=== PATIENT | male | born 1950 | race Caucasian/White ===

== ENCOUNTER 2020-11-09 08:44 | Inpatient (IN) | payer MEDICARE, MEDICAID, SELFPAY ==
[2020-11-09] VITALS (9 sets, daily range): BP systolic 105–133; BP diastolic 53–67; PULSE 70–99; RESP 14–19; TEMP 36.5–37.3; O2SAT 93–98; BMI 17.4
--- NOTE | ~2020-11-09 | XR_ITS ---
EXAMINATION: XR CHEST CLINICAL INFORMATION: Shortness of breath COMPARISON: None TECHNIQUE: Frontal view of the chest was obtained. FINDINGS: Abnormal appearance of the chest. There appears to be volume loss within the right hemithorax with mediastinal shift to the right. There is an approximately 4 x 2 cm density projecting over the right midlung which is nonspecific. Cannot exclude small amount of right-sided pleural fluid. There is good aeration of the left hemithorax. Subtle linear opacity of the lateral left lung base suggests atelectasis. XR/XR chest 1V IMPRESSION: Abnormal appearance of the chest. Unfortunately there is no prior imaging available for comparison. I suspect there may be postsurgical changes of the right hemithorax, however, an approximately 4 x 2 cm density projecting over the right midlung is nonspecific and may represent a focal mass. Chest CT would be required for further characterization of these findings.
--- NOTE | ~2020-11-09 | CT_ITS ---
EXAMINATION: CT ABDOMEN AND PELVIS WITH CONTRAST CLINICAL INFORMATION: Anemia, lung , rule gi mass COMPARISON: Chest CT earlier today TECHNIQUE: Multidetector volumetric imaging was performed from the superior aspect of the liver through the pubic symphysis following administration of 85 cc of Omnipaque intravenous contrast Sagittal and coronal reformatted images were obtained on the technologist workstation.. This CT examination was performed using dose optimization techniques as appropriate, variously including the following: *Automated exposure control *Adjustment of mA and/or kV according to patient size (this includes techniques or standardized protocols for targeted exams where dose is matched to indication/reason for exam; i.e. extremities or head) *Use of iterative reconstruction technique DLP: 301 mGy-cm FINDINGS: LUNG BASES: The hyperattenuating low-attenuation mass affect with central air seen in the right lung base was more completely seen on the CT scan of the chest. Chronic tumor versus abscess could have overlapping appearance and should be clinically correlated. Dilated debris-filled lower lobe bronchi in the right partially visualized as well. Patchy airspace disease at the left base again noted as well again better seen more completely on the dedicated chest CT from earlier today. LIVER, GALLBLADDER, AND BILIARY TREE: The liver is normal in size, shape, and attenuation. No focal hepatic lesion or biliary ductal dilatation is present. The gallbladder is contracted but unremarkable with no evidence of radiopaque gallstones, gallbladder wall thickening, or obvious pericholecystic inflammatory changes. PANCREAS: Unremarkable. SPLEEN: Unremarkable. ADRENAL GLANDS: Unremarkable. KIDNEYS AND URETERS: The kidneys are normal in size, shape, and attenuation. No hydronephrosis, hydroureter, or calculi seen. No perinephric stranding. BLADDER: Dense contrast in the bladder from the CT scan earlier today GASTROINTESTINAL TRACT: Stool and air seen throughout the colon to the rectum. No obstructive changes seen. Visualized small bowel is unremarkable. Lack of intra-abdominal fat limits evaluation for subtle inflammatory change but no obstructive changes noted in the bowel ABDOMINAL WALL: No significant hernia is appreciated. LYMPHOVASCULAR STRUCTURES: Extensive vascular calcification. Patient is status post aorta bifemoral bypass graft PELVIC VISCERA: Prostatic calcifications OSSEOUS STRUCTURES: Degenerative changes but no acute bony abnormality CT/CT abdomen pelvis w con IMPRESSION: The low-attenuation mass at the right lung base is incompletely visualized possibly representing central necrosis or abscess. This should be clinically correlated. There is patchy airspace disease seen otherwise again better delineated on the dedicated chest CT earlier today. I do not appreciate any acute or suspicious abnormality within the abdomen or pelvis otherwise. Chronic appearing and postoperative changes are noted.
--- NOTE | ~2020-11-09 | CT_ITS ---
EXAMINATION: CT CHEST WITH CONTRAST CLINICAL INFORMATION: Mass. COMPARISON: Chest x-ray 11/09/2020 TECHNIQUE: Multidetector volumetric CT imaging of the chest was obtained after the administration of 50 mL of Omnipaque 350 intravenous contrast without immediate adverse reactions. Axial MIP volume rendering provided. Sagittal and coronal reformatted images were obtained. This CT examination was performed using dose optimization techniques as appropriate, variously including the following: *Automated exposure control *Adjustment of mA and/or kV according to patient size (this includes techniques or standardized protocols for targeted exams where dose is matched to indication/reason for exam; i.e. extremities or head) *Use of iterative reconstruction technique DLP: 181 mGy-cm FINDINGS: CAMERA ENGINEER: There is loss of right lung volume with ipsilateral mediastinal shift. The left lung is hyperexpanded. LUNGS: There is diffuse emphysematous changes of both lungs with loss of right lung volume and ipsilateral mediastinal shift. There is a dense mass right lower lobe measuring 3.0 x 3.5 cm on axial image 255/5. There are several ill-defined patchy opacities seen in the right upper lobe in the range of 1 cm to 1.7 cm on axial image 21/4, branching interstitial thickening subpleural based right lower lobe and right middle lobe axial image 24/4 bronchial wall thickening at the hilum axial image 31/4 and a small ill-defined opacities in right middle lobe and right lower lobe on axial image 39/4 and 42/4. Few ill-defined opacities also seen in left upper lobe axial image 27/4, prominent alveolar surrounded by interstitial thickening axial image 30/4, reticular nodular changes in the lingula image 32, 33/4, 1.3 cm pleural-based nodule left lower lobe axial image 41/4 and less than 5 mm range ill-defined nodules in the left lower lobe and atelectasis in the lingula. Several bulla noted in the right upper lobe and left upper lobe. There is a large consolidation involving the entire right lower lobe. MEDIASTINUM: The trachea is dilated. There is minimal intraluminal filling defect or debris seen in the right bronchus on axial image 34/4. The largest abnormal lymph node in the pretracheal space measuring 1.2 x 2.7 cm axial image 25/3.. Pericardial effusion seen. PLEURA: There is a small loculated right pleural effusion but no calcified pleural plaques or thickening seen. AXILLA: No abnormal lymph nodes seen. UPPER ABDOMEN: The liver is homogeneous in density and normal size, shape and no focal lesion seen. Visualized spleen is unremarkable. Adrenal glands unremarkable. Gallbladder is contracted. OSSEOUS STRUCTURES: No lytic or sclerotic process seen. CT/CT chest w con IMPRESSION: Loss of right lung volume with ipsilateral mediastinal shift. There is a large right lower lobe consolidation with intrabronchial right lower lobe debris. There is ill-defined large mass right lower lobe lateral basal segment, suspicious. There is diffuse emphysema with ill-defined opacities seen scattered throughout both lungs question chronic scarring, post radiation changes or chronic fibrosis. There are bullous changes in both upper lobes slightly greater in number in the right lung apex. There is abnormal size pretracheal lymph node measuring 1.2 x 2.7 cm. Lack of previous exam rest evolution of disease. These findings may be chronic. Recommend PET study or a follow-up CT chest in 7-10 days post antibiotic treatment.
--- NOTE | 2020-11-09 09:48 | ED_ITS ---
HPI - SOB/Dyspnea General Chief Complaint: Dyspnea Stated Complaint: Cough Time Seen by Provider: 11/09/20 09:01 History of Present Illness HPI Narrative: Patient is a 70-year-old male with a long history of coughing upper respiratory symptoms. He has been a lifelong smoker. Family noted patient continued to be coughing. Feels weak and tired. Patient is from home. Been coughing for most of the last few years. Patient denies any recent weight loss. No fever no chills. Got the 1st of his coronavirus vaccine. Is due for 2nd 1 in about 2 weeks. no chest pain or shortness of breath no diaphoresis. Patient is from home. No travel history. Related Data Allergies Allergy/AdvReac Type Severity Reaction Status Date / Time No Known Allergies Allergy Verified 11/09/20 09:06 Review of Systems Review of Systems: Constitutional: No Weight loss, No Fever, No Chills, No Night Sweats, No Fatigue, No Malaise ENT/Mouth: No Hearing loss, No Ear Pain, No Nasal Congestion, No Sinus Pain, No Hoarseness, No sore throat, No Rhinorrhea, No Swallowing Difficulty Eyes: No Eye Pain, No Swelling, No Redness, No Foreign Body, No Discharge, No Vision Changes Cardiovascular: No Chest Pain, No SOB, No Dyspnea on Exertion, No Orthopnea, No Edema, No Palpitations Respiratory: Positive Cough, No Sputum, No Wheezing, No Smoke Exposure, No Dyspnea Gastrointestinal: No Nausea, No Vomiting, No Diarrhea, No Constipation, No abdominal Pain, No Hematochezia, No Melena Genitourinary: no irregular bleeding, No Dysuria, No Urinary Frequency, No Hematuria, No Urinary Incontinence, No Urgency, No Flank Pain, No Urinary Flow Changes, No Hesitancy Musculoskeletal: No joint pain, No Myalgias, No Joint Swelling Skin: No Skin Lesions, No rash Neuro: No Weakness, No Numbness, No Paresthesias, No Loss of Consciousness, No Dizziness, No Headache Psych: No Anxiety/Panic, No Depression, No SI/HI/AH/VH, No Social Issues, Heme/Lymph: No Bruising, No Bleeding,No Lymphadenopathy Endocrine: No Polyuria, No Polydipsia, No Temperature Intolerance PMFSH Social History Social History Alcohol intake: never Patient Tobacco Use Status: Former Tobacco user Smoked in Last 30 Days: Yes Use of substances other than those prescribed or required for medical reasons: No Advance Directives: No Advance Directives Information Provided: Yes Physical Exam Vital Signs: Vital Signs: Last Vital Signs Temp 99.2 F 11/09/20 09:07 Pulse 90 11/09/20 10:20 Resp 16 11/09/20 10:20 BP 105/66 11/09/20 10:20 Pulse Ox 97 11/09/20 10:20 Body Mass Index 17.4 Appearance: Alert. Oriented X3. No acute distress. Eyes: Pupils equal, round and reactive to light. ENT: Pharynx normal. Neck: Normal inspection. Neck supple. No lymph nodes noted. No crepitus CVS: Normal heart rate and rhythm. Pulses normal. Normal S1 and S2 Respiratory: No respiratory distress. Diminished breath sounds bilaterally, minimal Wheezing. No rales Abdomen: Soft and nontender. No rigidity. No distention. good BS x4 Skin: Skin warm and dry. Normal skin color. Normal skin turgor. Extremities: No lower extremity edema. Neurovascular intact to all extremities. No Lacerations. No Rash Neuro: Oriented X 3. No motor deficit. No sensory deficit. Moving all extermi ties. No slurred speech MDM - SOB/Dyspnea MDM Narrative Medical decision making narrative: Patient's white count is 11. Have positive coughing upper respiratory symptom loss await generalized malaise. Chest x-ray showed a right middle lobe mass. A CT confirmed there is a large right lower lobe consolidation with intralobar right lower lobe the breeze. An ill-defined mass in the right lower lobe consistent with having lung cancer. The finding was relayed to patient. Cultures were obtained. Lactate ordered. We will go ahead and start patient on IV antibiotics. Will admit patient for further evaluation. Patient's case discussed with hospitalist team. Lab Data Result diagrams: 11/09/20 10:19 11/09/20 10:19 Labs: Lab Results 11/09/20 11/09/20 11/09/20 Range/Units 10:19 10:19 10:19 WBC 11.4 H (4.8-10.8) X10*3/uL RBC 3.71 L (4.60-5.80) X10*6/uL Hgb 7.8 L (14.0-18.0) g/dl Hct 25.7 L (42-52) % MCV 69.3 L (80-98) fL MCH 21.0 L (27.0-33.0) pg MCHC 30.4 L (31.0-36.0) g/dl RDW 18.2 H (11.0-16.0) % Plt Count 410 H (160-400) X10*3/uL MPV 8.3 L (9.4-12.4) fL Immature Gran % (Auto) 0.4 (0.0-0.4) % Neut % (Auto) 83.6 H (45-73) % Lymph % (Auto) 9.2 L (20-40) % [place] % (Auto) 6.3 (2-11) % Eos % (Auto) 0.1 (0-4) % Baso % (Auto) 0.4 (0-2) % Lymph # (Auto) 1.1 L (1.2-4.9) X10*3/uL [place] # (Auto) 0.7 (0.1-1.2) X10*3/uL Eos # (Auto) 0.0 (0.0-0.4) X10*3/uL Baso # (Auto) 0.1 (0.0-0.2) X10*3/uL Abs Immat Gran (auto) 0.04 H (0.00-0.03) X10*3/uL Absolute Neuts (auto) 9.6 H (2.0-8.3) X10*3/uL Absolute Nucleated RBC 0.000 (0.0-0.012) X10*3/uL Nucleated RBC % (auto) 0.0 (0.0-0.2) /100WBC Hold Blue Top SEE NOTE Sodium 130 L (135-145) mmol/L Potassium 4.3 (3.3-5.1) mmol/L Chloride 97 (96-108) mmol/L Carbon Dioxide 25 (22-29) mmol/L Anion Gap 12 (12-20) BUN 7 L (9-16) mg/dL Creatinine 0.63 (0.5-1.4) mg/dL Estim Creat Clear Calc 82.7 Estimated GFR > 60 Random Glucose 110 (60-115) mg/dL Calcium 9.6 (8.4-10.2) mg/dL COVID-19 ([facility]) (Negative) COVID-19 Clin Com 11/09/20 Range/Units 10:19 WBC (4.8-10.8) X10*3/uL RBC (4.60-5.80) X10*6/uL Hgb (14.0-18.0) g/dl Hct (42-52) % MCV (80-98) fL MCH (27.0-33.0) pg MCHC (31.0-36.0) g/dl RDW (11.0-16.0) % Plt Count (160-400) X10*3/uL MPV (9.4-12.4) fL Immature Gran % (Auto) (0.0-0.4) % Neut % (Auto) (45-73) % Lymph % (Auto) (20-40) % [place] % (Auto) (2-11) % Eos % (Auto) (0-4) % Baso % (Auto) (0-2) % Lymph # (Auto) (1.2-4.9) X10*3/uL [place] # (Auto) (0.1-1.2) X10*3/uL Eos # (Auto) (0.0-0.4) X10*3/uL Baso # (Auto) (0.0-0.2) X10*3/uL Abs Immat Gran (auto) (0.00-0.03) X10*3/uL Absolute Neuts (auto) (2.0-8.3) X10*3/uL Absolute Nucleated RBC (0.0-0.012) X10*3/uL Nucleated RBC % (auto) (0.0-0.2) /100WBC Hold Blue Top Sodium (135-145) mmol/L Potassium (3.3-5.1) mmol/L Chloride (96-108) mmol/L Carbon Dioxide (22-29) mmol/L Anion Gap (12-20) BUN (9-16) mg/dL Creatinine (0.5-1.4) mg/dL Estim Creat Clear Calc Estimated GFR Random Glucose (60-115) mg/dL Calcium (8.4-10.2) mg/dL COVID-19 ([facility]) Negative (Negative) COVID-19 Clin Com See Note Discharge Plan Discharge Clinical Impression: Community acquired pneumonia, Lung cancer Patient Disposition: Admitted As Inpatient
[2020-11-09 10:26] LABS: MANUAL DIFF FLAG NO
[2020-11-09 10:28] LABS: Basophils Absolute Auto 0.1 X10*3/uL (0.0-0.2); Basophils Percent Auto 0.4 % (0-2); Eosinophils Percent Auto 0.1 % (0-4); Hematocrit 25.7 % (42-52); Hemoglobin 7.8 g/dl (14.0-18.0); Imm Gran Abs Auto 0.04 X10*3/uL (0.00-0.03); Imm Gran Pct Auto 0.4 % (0.0-0.4); Lymphocytes Absolute Auto 1.1 X10*3/uL (1.2-4.9); Lymphocytes Percent Auto 9.2 % (20-40); Mean Corpuscular HGB Conc 30.4 g/dl (31.0-36.0); Mean Corpuscular Volume 69.3 fL (80-98); Mean Platelet Volume 8.3 fL (9.4-12.4); Monocytes Absolute Auto 0.7 X10*3/uL (0.1-1.2); Monocytes Percent Auto 6.3 % (2-11); Neutrophils Absolute Auto 9.6 X10*3/uL (2.0-8.3); Neutrophils Percent Auto 83.6 % (45-73); Platelet Count 410 X10*3/uL (160-400); Red Blood Count 3.71 X10*6/uL (4.60-5.80); Red Cell Distribution Width 18.2 % (11.0-16.0); White Blood Count 11.4 X10*3/uL (4.8-10.8)
[2020-11-09 10:47] LABS: COVID-19 Test Negative (Negative)
[2020-11-09 11:01] LABS: Anion Gap 12 (12-20); Blood Urea Nitrogen 7 mg/dL (9-16); Calcium 9.6 mg/dL (8.4-10.2); Carbon Dioxide 25 mmol/L (22-29); Chloride 97 mmol/L (96-108); Creatinine Clr Calc Pharmacy 82.7; Estimated Glomerular Filt Rate > 60; Glucose Random 110 mg/dL (60-115); Potassium 4.3 mmol/L (3.3-5.1); Sodium 130 mmol/L (135-145)
[2020-11-09] MEDS: iohexoL 350 MG/ML 100 ML INFUS..BTL 65 ML IV (11:27)
--- NOTE | 2020-11-09 12:51 | PM.IMHP ---
History of Present Illness Date of Service: 11/09/20 Chief Complaint: Shortness of breath and cough, weight loss 63 year male with with HLD, dpression, heavy smoker who presents with ED with SOB with exertion, non productive cough, progressive weakness =,anorexia, unintentional weight --couldn't specifiy how much for about a year. his coughing and dyspnea have worsened over the course of the last 2 to 3 days and as a result he stopped smoking . he was coughing weakly throughout my evaluation. He denies fever or chills, covid is negative. Review of Systems Review of Systems: Gen: no fever, unintentionall weight loss Resp: +sob, n+ cough CV: no chest, no ASHBY, no leg edema GI: No n/v, no abd pain Neuro: No confusion Yes all other systems are reviewed and are negative [facility] Medical History (Updated 11/09/20 @ 12:54 by Kwan Anthony MD) Depression HLD (hyperlipidemia) Social History Alcohol intake: never Patient Tobacco Use Status: Former Tobacco user Smoked in Last 30 Days: Yes Use of substances other than those prescribed or required for medical reasons: No Advance Directives: No Advance Directives Information Provided: Yes Meds Allergies Allergy/AdvReac Type Severity Reaction Status Date / Time No Known Allergies Allergy Verified 11/09/20 09:06 Active Medications: Current Medications Generic Name Dose Route Start Last Admin Trade Name Freq PRN Reason Stop Dose Admin Ceftriaxone Sodium 1 gm/ 50 mls @ 100 mls/hr 11/09/20 12:34 Sodium Chloride IV 11/09/20 13:03 ONCE ONE Sodium Chloride 1,000 mls @ 999 mls/hr 11/09/20 12:45 Ns IV 11/09/20 13:45 .Q1H1M DAIN Physical Exam Vital Signs and Narrative: Vital Signs: Last Vital Signs Temp 99.2 F 11/09/20 09:07 Pulse 90 11/09/20 10:20 Resp 16 11/09/20 10:20 BP 105/66 11/09/20 10:20 Pulse Ox 97 11/09/20 10:20 Body Mass Index 17.4 Const: Other: Constitutional Awake and Alert, No apparent distress, he looks ill and gaunt, emaciated Neck Supple, No lymphadenopathy HEENT:PERRLA, no sclera icteris Cardiovascular RRR, No M/R/G, S1 S2, No S3 S4, No pedal edema Respiratory Lungs clear, No respiratory distress Gastrointestinal Non tender, Non-distended Skin No rash Neurological Alert & oriented x3 Psychological Appropriate affect Results Labs CBC and Chem 7: 11/09/20 10:19 11/09/20 10:19 Labs: covid negative Imaging Radiologist's Impressions: Impressions Chest X-Ray 11/09/20 09:44 IMPRESSION: Abnormal appearance of the chest. Unfortunately there is no prior imaging available for comparison. I suspect there may be postsurgical changes of the right hemithorax, however, an approximately 4 x 2 cm density projecting over the right midlung is nonspecific and may represent a focal mass. Chest CT would be required for further characterization of these findings. Chest CT 11/09/20 10:23 IMPRESSION: Loss of right lung volume with ipsilateral mediastinal shift. There is a large right lower lobe consolidation with intrabronchial right lower lobe debris. There is ill-defined large mass right lower lobe lateral basal segment, suspicious. There is diffuse emphysema with ill-defined opacities seen scattered throughout both lungs question chronic scarring, post radiation changes or chronic fibrosis. There are bullous changes in both upper lobes slightly greater in number in the right lung apex. There is abnormal size pretracheal lymph node measuring 1.2 x 2.7 cm. Lack of previous exam rest evolution of disease. These findings may be chronic. Recommend PET study or a follow-up CT chest in 7-10 days post antibiotic treatment. Assessment and Plan (1) Depression: Status: Acute (2) HLD (hyperlipidemia): Status: Acute (3) Community acquired pneumonia: Status: Acute (4) Lung cancer: Status: Acute 70/m with depression, HLD, heavy smoking history here with SOB, cough, unintentional weight loss and found to have lung mass that is in all probability lung cancer and post obstructive pneumonia Lung mass high suspcious for lung cancer in setting of heavy smoking history, unintentional weight loss -Pulmonology consultation for possible bronchosocpy if not then IR guided biopsy -Oncology consult Pneumonia-No fever, normal WBC, likely post obstructive type--Started on Ceftriaxone and Azithro in ED will continue Microcytic Anemia--there is no evidence of acute blood loss, no history of colonoscopy, one ought to be concern about likely GI loss, and GI malignancy, check occult blood, check Iron studies, B12, folate. 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
[2020-11-09] MEDS: cefTRIAXone sodium 1 GM in 0.9 % Sodium Chloride 50 ML IV (12:53)
[2020-11-09] MEDS: 0.9 % Sodium Chloride 1,000 ML 999 ML IV (12:53)
[2020-11-09] MEDS: Azithromycin 500 MG TABLET PO (12:54)
[2020-11-09] MEDS: Melatonin 3 MG TABLET 6 MG PO (14:13)
--- NOTE | 2020-11-09 14:16 | PC.NURSE ---
daughter now states that the pt had a hernia surgery in jul, ?jul 29, wound opened in 3 places 3 weeks after and has been having dsg changes daily by visitting rn, bandage removed by , there are 3 spots on the abd wound w thin packing placed, small amt of serosanguinous drainage from one of the wounds, had spoken to family prior to tpa and they did not mention this surgery or complication
[2020-11-09 14:23] LABS: Lactic Acid 1.7 mmol/L (0.5-2.0)
[2020-11-09 14:27] LABS: Iron 6 mcg/dL (45-160); Percent Iron Saturation 3 % (15-50); Total Iron Binding Capacity 220 mcg/dL (228-428); Unsaturated Iron Binding 214 ug/dL
[2020-11-09 14:48] LABS: Ferritin 282 ng/mL (20-250)
[2020-11-09] MEDS: iohexoL 350 MG/ML 100 ML INFUS..BTL IV (15:02)
[2020-11-09] MEDS: Albuterol/Iprat 2.5/0.5MG 3 ML AMPUL.NEB INHALE ×2 (15:13→20:28)
--- NOTE | 2020-11-09 16:09 | PC.NURSE ---
attempted to call floor for report. no anwer.
--- NOTE | 2020-11-09 16:40 | PC.NURSE ---
3x contacted floor no answer.
[2020-11-09] MEDS: guaiFENesin 100 MG/5 ML LIQUID PO (21:02)
[2020-11-09] MEDS: 0.9 % Sodium Chloride Flush 3 ML SYRINGE IVFLUSH (23:51)
[2020-11-10] VITALS (9 sets, daily range): BP systolic 106–134; BP diastolic 56–72; PULSE 77–92; RESP 14–18; TEMP 36.6–37.1; O2SAT 94–99; BMI 17.2
--- NOTE | 2020-11-10 07:47 | PM.EVENT ---
Chart reviewed. Full consult to follow. Agree with pulmonary consultation for bronchoscopy and biopsy. Start oral iron supplementation for LUIS. Serum tumor markers submitted, will follow. Thanks.
[2020-11-10] MEDS: Albuterol/Iprat 2.5/0.5MG 3 ML AMPUL.NEB INHALE ×3 (07:55→19:54)
[2020-11-10 08:02] LABS: Immature Retic Fraction 12.6 % (2.3-13.4); Retic HGB Equivalent 22.7 pg (30.0-35.0); Reticulocyte Percent 1.1 % (0.5-1.8); Reticulocytes Absolute 0.039 X10*6/uL (0.026-0.095)
[2020-11-10 08:09] LABS: Lactate Dehydrogenase 141 U/L (118-273)
[2020-11-10] MEDS: guaiFENesin 100 MG/5 ML LIQUID PO ×2 (08:43→16:33)
[2020-11-10] MEDS: 0.9 % Sodium Chloride Flush 3 ML SYRINGE IVFLUSH ×3 (08:44→23:54)
[2020-11-10] MEDS: LORazepam 1 MG TABLET PO (08:58)
--- NOTE | 2020-11-10 10:08 | HO.PM.IMPN ---
Subjective Subjective Date of Service: 11/10/20 Review of Systems Gen: no fever, unintentionall weight loss Resp: +sob, n+ cough CV: no chest, no ASHBY, no leg edema GI: No n/v, no abd pain Neuro: No confusion Physical Exam Vital Signs: Vital Signs: Last Vital Signs Temp 98.1 F 11/10/20 07:51 Pulse 92 11/10/20 07:55 Resp 16 11/10/20 07:51 BP 106/62 11/10/20 07:51 Pulse Ox 94 11/10/20 07:51 Body Mass Index 17.2 Const: Other: Constitutional Awake and Alert, No apparent distress, he looks ill and gaunt, emaciated Neck Supple, No lymphadenopathy HEENT:PERRLA, no sclera icteris Cardiovascular RRR, No M/R/G, S1 S2, No S3 S4, No pedal edema Respiratory Lungs clear, No respiratory distress Gastrointestinal Non tender, Non-distended Skin No rash Neurological Alert & oriented x3 Psychological Appropriate affect Objective Data Current Medications Generic Name Dose Route Start Last Admin Trade Name Sundarq PRN Reason Stop Dose Admin Acetaminophen 650 mg 11/09/20 12:57 Acetaminophen 325 Mg Tablet PO Q4H PRN Pain, Moderate (Pain Scale 4-6 Albuterol/Ipratropium 3 ml 11/09/20 16:00 11/10/20 07:55 Albuterol/Iprat 2.5/0.5mg 3 Ml Ampul.Neb INHALE 3 ml RQ4H WHILE AWAKE DAIN Administration Albuterol/Ipratropium 3 ml 11/09/20 13:02 Albuterol/Iprat 2.5/0.5mg 3 Ml Ampul.Neb INHALE Q2H PRN Shortness of Breath Docusate Sodium 100 mg 11/09/20 12:57 Docusate Sodium 100 Mg Capsule PO BID PRN Constipation Guaifenesin 5 ml 11/09/20 19:03 11/10/20 08:43 Guaifenesin 100 Mg/5 Ml Liquid PO 5 ml Q4H PRN Administration Cough Ceftriaxone Sodium 1 gm/ 50 mls @ 100 mls/hr 11/10/20 13:00 Sodium Chloride IV Q24H DAIN Azithromycin 500 mg/ Sodium 250 mls @ 125 mls/hr 11/10/20 13:00 Chloride IV 11/14/20 12:59 Q24H DAIN Lorazepam 1 mg 11/09/20 13:09 11/10/20 08:58 Lorazepam 1 Mg Tablet PO 1 mg Q6H PRN Administration Anxiety Magnesium Hydroxide 30 ml 11/09/20 13:13 Milk Of Magnesia 30 Ml Oral.Susp PO DAILY PRN Constipation Melatonin 6 mg 11/09/20 12:56 Melatonin 3 Mg Tablet PO BEDTIME PRN Sleep Morphine Sulfate 2 mg 11/09/20 13:17 Morphine Sulfate 2 Mg/Ml Cartridge IVPUSH Q4H PRN Pain, Severe (Pain Scale 7-10) Nicotine 21 mg 11/09/20 13:15 11/10/20 08:44 Nicotine 21 Mg Patch.Td24 TRANSDERMA Not Given DAILY DAIN Ondansetron HCl 4 mg 11/09/20 12:57 Ondansetron Hcl 4 Mg/2 Ml Vial IVPUSH Q8H PRN Nausea and Vomiting Sodium Chloride 3 ml 11/09/20 16:00 11/10/20 08:44 0.9 % Sodium Chloride Flush 3 Ml Syringe IVFLUSH 3 ml QSHIFT DAIN Administration Labs CBC & Chem 7: 11/09/20 10:19 11/09/20 10:19 Assessment and Plan (1) Depression: Status: Acute (2) HLD (hyperlipidemia): Status: Acute (3) Community acquired pneumonia: Status: Acute (4) Lung cancer: Status: Acute Assessment and Plan: 70/m with depression, HLD, heavy smoking history here with SOB, cough, unintentional weight loss and found to have lung mass that is in all probability lung cancer and post obstructive pneumonia Lung mass high suspcious for lung cancer in setting of heavy smoking history, unintentional weight loss -Pulmonology consultation for possible bronchosocpy if not then IR guided biopsy -Oncology consult Pneumonia-No fever, normal WBC, likely post obstructive type--continue Ceftriaxone and Azithro D2 Microcytic Anemia--there is no evidence of acute blood loss, no history of colonoscopy, one ought to be concern about likely GI loss, and GI malignancy, check occult blood, Iron level is low, ferritin high, B12, folate pending . 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
--- NOTE | 2020-11-10 11:25 | PM.CNPUL ---
History of Present Illness History of Present Illness Consult date: 11/10/20 Reason for consult: lung mass Chief complaint: pneumonia and lung mass Narrative: 70-year-old gentleman, recent 50+ pack-year smoker, with underlying history hyperlipidemia and depression admitted on 11/09/2020 with 3 day history of dyspnea and nonproductive cough. On ER evaluation patient was noted to have elevated provide cell count, his chest CT demonstrated the right lower lobe mass with endobronchial debris. He has been admitted to inpatient service and treated for community-acquired pneumonia. Of note, patient endorses unintentional weight loss of approximately 50 lb over the last year. He denies prior personal or family history of lung disease. Review of Systems Constitutional: Constitutional: Denies daytime sleepiness, Denies excessive sweating, Denies fatigue, Denies fever(s), Denies lethargy, Denies malaise, Denies night sweats, Denies snoring and Denies weight loss Eyes: Eyes: Denies blurry vision and Denies itchy eyes ENT: Denies nasal congestion, Denies post nasal drip, Denies sinus pain, Denies sinus pressure and Denies other ( Thrush) Cardiovascular: Cardiovascular: Denies chest pain, Denies pedal edema, Reports dyspnea, Denies orthopnea and Denies paroxysmal nocturnal dyspnea Respiratory: Respiratory: Reports cough, Denies hemoptysis, Denies excessive phlegm production, Reports dyspnea, Denies snoring and Denies wheezing Gastrointestinal: Gastrointestinal: Denies abdominal pain and Denies heartburn Musculoskeletal: Musculoskeletal: Denies myalgias, Denies arthralgias and Denies joint swelling Integumentary/Breasts: Skin/Breast: Denies rash Neurologic: Denies memory loss and Denies seizure-like activity Psychiatric: Psychiatric: Denies abnormal sleep pattern, Denies anxiety and Denies memory loss Endocrine: Endocrine: Denies excessive sweating, Denies fatigue and Denies heat intolerance Hematologic/Lymphatic: Hematologic/Lymphatic: Denies easy bruising Allergic/Immunologic: Allergic/Immunologic: Denies itchy eyes, Denies seasonal rhinorrhea and Denies wheezing PMFSH Past Medical History Medical History (Updated 11/10/20 @ 11:28 by Bruno Flynn MD) Depression HLD (hyperlipidemia) Social History Social History Household Members: Family Housing: House Do you presently have visiting nurse or other home services: No Alcohol intake: never Patient Tobacco Use Status: Former Tobacco user Quit Date: 2 days ago Cigarette Packs Per Day: 0.5 Cigarettes Per Day: 10.0 Smoked in Last 30 Days: Yes Patient Interested in Nicotine Replacement: No Patient Given Instructions on How to Stop Smoking: Yes Date Education Initiated: 11/09/20 Second Hand Smoke Exposure: No Use of substances other than those prescribed or required for medical reasons: No Currently Displaying Signs/Symptoms of Drug Intoxication Withdrawal: No Have you been hit, kicked, punched, or otherwise hurt by someone within the past year? If so, by whom?: No Do you feel safe in your current relationship?: Yes Is there a partner from a previous relationship who is making you feel unsafe now?: No Are you made to feel afraid or neglected: No Spiritual Healthcare Practices: Rastafarian Advance Directives: Yes Advance Directives on File: Yes Advance Directives Date on File: 11/09/20 Do you have thoughts of harming others: None Do you have a plan to hurt others: No Plan Recently lost weight without trying: Yes How much weight loss: 14-23 pounds Nutrition Risks: No Nutritional Risk Meds Allergies Allergy/AdvReac Type Severity Reaction Status Date / Time No Known Allergies Allergy Verified 11/09/20 09:06 Active Medications: Current Medications Generic Name Dose Route Start Last Admin Trade Name Freq PRN Reason Stop Dose Admin Acetaminophen 650 mg 11/09/20 12:57 Acetaminophen 325 Mg Tablet PO Q4H PRN Pain, Moderate (Pain Scale 4-6 Albuterol/Ipratropium 3 ml 11/09/20 16:00 11/10/20 07:55 Albuterol/Iprat 2.5/0.5mg 3 Ml Ampul.Neb INHALE 3 ml RQ4H WHILE AWAKE DAIN Administration Albuterol/Ipratropium 3 ml 11/09/20 13:02 Albuterol/Iprat 2.5/0.5mg 3 Ml Ampul.Neb INHALE Q2H PRN Shortness of Breath Amoxicillin/Clavulanate Potassium 875 mg 11/10/20 12:00 Amoxicillin/Potassium Clav 875 Mg Tablet PO Q12H DAIN Docusate Sodium 100 mg 11/09/20 12:57 Docusate Sodium 100 Mg Capsule PO BID PRN Constipation Guaifenesin 5 ml 11/09/20 19:03 11/10/20 08:43 Guaifenesin 100 Mg/5 Ml Liquid PO 5 ml Q4H PRN Administration Cough Lorazepam 1 mg 11/09/20 13:09 11/10/20 08:58 Lorazepam 1 Mg Tablet PO 1 mg Q6H PRN Administration Anxiety Magnesium Hydroxide 30 ml 11/09/20 13:13 Milk Of Magnesia 30 Ml Oral.Susp PO DAILY PRN Constipation Melatonin 6 mg 11/09/20 12:56 Melatonin 3 Mg Tablet PO BEDTIME PRN Sleep Morphine Sulfate 2 mg 11/09/20 13:17 Morphine Sulfate 2 Mg/Ml Cartridge IVPUSH Q4H PRN Pain, Severe (Pain Scale 7-10) Nicotine 21 mg 11/09/20 13:15 11/10/20 08:44 Nicotine 21 Mg Patch.Td24 TRANSDERMA Not Given DAILY DAIN Ondansetron HCl 4 mg 11/09/20 12:57 Ondansetron Hcl 4 Mg/2 Ml Vial IVPUSH Q8H PRN Nausea and Vomiting Sodium Chloride 3 ml 11/09/20 16:00 11/10/20 08:44 0.9 % Sodium Chloride Flush 3 Ml Syringe IVFLUSH 3 ml QSHIFT DAIN Administration Home Medications Medication Instructions Recorded Confirmed Last Taken Type aspirin 81 mg PO DAILY 11/09/20 11/09/20 11/09/20 07:00 History atorvastatin 1 tab PO DAILY 11/09/20 11/09/20 11/09/20 07:00 History fluoxetine 1 cap PO QAM 11/09/20 11/09/20 11/08/20 22:00 History risperidone 1 tab PO BEDTIME 11/09/20 11/09/20 11/08/20 22:00 History Physical Exam Vital Signs: Vital Signs: Last Vital Signs Temp 98.1 F 11/10/20 07:51 Pulse 92 11/10/20 07:55 Resp 16 11/10/20 07:51 BP 106/62 11/10/20 07:51 Pulse Ox 94 11/10/20 07:51 Body Mass Index 17.2 Const: General: no acute distress, alert, awake and ill appearing Nutritional Appearance: cachectic Eyes: Sclerae: sclerae normal EOM: EOMs intact bilaterally Neck: Neck: Yes no lymphadenopathy, Yes trachea midline and Yes supple Resp: Effort & Inspection: normal respiratory effort and no respiratory distress Auscultation: other (Poor air movement at the right base) Cardio: Rate: regular rate Rhythm: regular rhythm Heart sounds: no gallops, no murmurs and no rubs GI: Palpation (GI): Soft to palpation and Other GI palpation findings present ( Nontender) Auscultation: normal bowel sounds Extrem: General: Yes no pedal edema, No clubbing and No cyanosis Results Laboratory Findings CBC and BMP: 11/09/20 10:19 11/09/20 10:19 Abnormal lab findings: Abnormal Labs 11/09/20 11/09/20 10:19 10:19 WBC 11.4 H RBC 3.71 L Hgb 7.8 L Hct 25.7 L MCV 69.3 L MCH 21.0 L MCHC 30.4 L RDW 18.2 H Plt Count 410 H MPV 8.3 L Neut % (Auto) 83.6 H Lymph % (Auto) 9.2 L Lymph # (Auto) 1.1 L Abs Immat Gran (auto) 0.04 H Absolute Neuts (auto) 9.6 H Retic Hgb Equivalent 22.7 L Sodium 130 L BUN 7 L Iron 6 L TIBC 220 L % Saturation 3 L Ferritin 282 H Assessment and Plan (1) COPD (chronic obstructive pulmonary disease): Status: Acute Impression: 70-year-old gentleman admitted with has postobstructive pneumonia with right lower lobe mass. Recommendations: Consider switching ceftriaxone and azithromycin to Unasyn. Will plan on bronchoscopic evaluation on 11/12/2020. (2) Postobstructive pneumonia: Status: Acute (3) Lung cancer: Status: Acute Procedures Date of Service Date of Service: 11/10/20
[2020-11-10] MEDS: FLUoxetine HCl 20 MG CAPSULE PO (13:26)
[2020-11-10] MEDS: Amoxicillin/Potassium Clav 875 MG TABLET PO ×2 (13:26→23:53)
--- NOTE | 2020-11-10 15:17 | MHC.CM.PN ---
CM MET WITH PT WHO REPORTS HE LIVES WITH HIS SISTER AND HIS NIECE. PT REPORTS BEING FULLY INDEPENDENT, HAVING NO DME AND NO SERVICES. PT CONFIRMS HIS PCP IS EFREN NUGENT AND THAT THE HCP ON FILE IS ACCURATE. IMM DELIVERED CURRENT DC PLAN IS HOME WITH NO SERVICES FAMILY TO TRANSPORT
[2020-11-10] MEDS: Enoxaparin Sodium 40 MG/0.4 ML SYRINGE SUBCUT (17:38)
[2020-11-10] MEDS: risperiDONE 1 MG TABLET PO (20:04)
[2020-11-11 03:07] VITALS: BP 126/66; PULSE 82; RESP 18; TEMP 36.8; O2SAT 95
[2020-11-11] MEDS: guaiFENesin 100 MG/5 ML LIQUID PO ×3 (05:32→16:20)
[2020-11-11 06:00] VITALS: BMI 16.8
[2020-11-11 07:49] VITALS: BP 101/54; PULSE 80; RESP 18; TEMP 36.4; O2SAT 96
[2020-11-11 08:30] LABS: Hematocrit 28.1 % (42-52); Hemoglobin 8.4 g/dl (14.0-18.0); Mean Corpuscular HGB Conc 29.9 g/dl (31.0-36.0); Mean Corpuscular Hemoglobin 21.1 pg (27.0-33.0); Mean Corpuscular Volume 70.6 fL (80-98); Mean Platelet Volume 8.4 fL (9.4-12.4); Platelet Count 461 X10*3/uL (160-400); Red Blood Count 3.98 X10*6/uL (4.60-5.80); Red Cell Distribution Width 18.6 % (11.0-16.0); White Blood Count 11.1 X10*3/uL (4.8-10.8)
[2020-11-11 08:53] LABS: Folate 5.5 ng/mL (> or = 4.0); Vitamin B12 513 pg/mL (200-900)
[2020-11-11 08:59] LABS: Anion Gap 12 (12-20); Blood Urea Nitrogen 5 mg/dL (9-16); Carbon Dioxide 26 mmol/L (22-29); Chloride 101 mmol/L (96-108); Creatinine Clr Calc Pharmacy 83.6; Estimated Glomerular Filt Rate > 60; Glucose Random 102 mg/dL (60-115); Potassium 4.5 mmol/L (3.3-5.1); Sodium 134 mmol/L (135-145)
[2020-11-11] MEDS: FLUoxetine HCl 20 MG CAPSULE PO (08:59)
[2020-11-11] MEDS: 0.9 % Sodium Chloride Flush 3 ML SYRINGE IVFLUSH ×3 (08:59→23:49)
[2020-11-11] MEDS: Ampicillin Sodium/Sulbactam Na 3 GM in 0.9 % Sodium Chloride 100 ML IV ×3 (08:59→23:49)
[2020-11-11] MEDS: Atorvastatin Calcium 40 MG TABLET PO (08:59)
--- NOTE | 2020-11-11 09:33 | PM.HEMONCCN ---
Subjective - Subjective Chief complaint: Cough, unintentional weight loss Patient: new to practice Consult date: 11/11/20 Requesting Physician: Dr. Anthony Primary Care Provider: Michael Cervantes MD HPI - Consult Narrative Reason for consult: Lung mass Narrative: Zan Pinto is a 70 year old male admitted for postobstructive pneumonia. He presented with worsening shortness of breath and cough for last several days but reports loss of appetite and weight loss in the last 6 months. He is a chronic smoker, moved from [facility] to [place] to be with his sister. He has been chronically disabled because of mental health issues. He was never diagnosed with COPD in the past, a denies any previous lung issues. He reports progressive worsening of cough and shortness of breath. He denies any fever or chills. He has had significant weight loss and has been constipated. He denies hematochezia or melena. He says he has had a colonoscopy some years ago in [place]. He was not told of anemia in the past. He denies any headache or dizziness. No back pain. No dysuria or hematuria. No hemoptysis or pleuritic chest pain. Review of Systems - Constitutional Reports as per HPI, Reports anorexia, Reports fatigue, Reports malaise, Reports poor appetite, Reports weight loss - Cardiovascular Reports no additional cardiovascular complaints - Respiratory Reports no additional respiratory complaints - Gastrointestinal Reports no additional gastrointestinal complaints - Neurologic Denies memory loss, Denies seizure-like activity [facility] Medical History: Medical History (Last Updated 11/09/20 @ 12:54 by Kwan Anthony MD) Depression HLD (hyperlipidemia) Social History: Social History (Last Reviewed 11/09/20 @ 12:54 by Kwan Atnhony MD) Living Situation History: Household Members: Family Housing: House Do you presently have visiting nurse or other home services: No Alcohol History: Alcohol intake: never Tobacco History: Patient Tobacco Use Status: Former Tobacco user Cigarette Packs Per Day: 0.5 Cigarettes Per Day: 10.0 Smoked in Last 30 Days: Yes Smoke Quit Date: 2 days ago Patient Interested in Nicotine Replacement: No Patient Given Instructions on How to Stop Smoking: Yes Date Education Initiated: 11/09/20 Second Hand Smoke Exposure: No Substance Use History: Use of substances other than those prescribed or required for medical reasons: No Currently Displaying Signs/Symptoms of Drug Intoxication Withdrawal: No Domestic Abuse History: Have you been hit, kicked, punched, or otherwise hurt by someone within the past year? If so, by whom?: No Do you feel safe in your current relationship?: Yes Is there a partner from a previous relationship who is making you feel unsafe now?: No Are you made to feel afraid or neglected: No Healthcare Practices: Spiritual Healthcare Practices: Jewish Advance Directives: Advance Directives: Yes Advance Directives on File: Yes Advance Directives Date on File: 11/09/20 Homicidal Assessment: Do you have thoughts of harming others: None Do you have a plan to hurt others: No Plan Nutrition Assessment: Recently lost weight without trying: Yes How much weight loss: 14-23 pounds Nutrition Risks: No Nutritional Risk Occupation Assessmet: service: No Current occupational status: retired Home Medications and Allergies Current Medications: Current Medications Generic Name Dose Route Start Last Admin Trade Name Freq PRN Reason Stop Dose Admin Acetaminophen 650 mg 11/09/20 12:57 Acetaminophen 325 Mg Tablet PO Q4H PRN Pain, Moderate (Pain Scale 4-6 Albuterol/Ipratropium 3 ml 11/09/20 16:00 11/11/20 08:19 Albuterol/Iprat 2.5/0.5mg 3 Ml Ampul.Neb INHALE Not Given RQ4H WHILE AWAKE DAIN Albuterol/Ipratropium 3 ml 11/09/20 13:02 Albuterol/Iprat 2.5/0.5mg 3 Ml Ampul.Neb INHALE Q2H PRN Shortness of Breath Atorvastatin Calcium 40 mg 11/11/20 09:00 11/11/20 08:59 Atorvastatin Calcium 40 Mg Tablet PO 40 mg DAILY DAIN Administration Docusate Sodium 100 mg 11/09/20 12:57 Docusate Sodium 100 Mg Capsule PO BID PRN Constipation Enoxaparin Sodium 40 mg 11/10/20 18:00 11/10/20 17:38 Enoxaparin Sodium 40 Mg/0.4 Ml Syringe SUBCUT 40 mg Q24H DAIN Administration Fluoxetine HCl 20 mg 11/10/20 13:00 11/11/20 08:59 Fluoxetine Hcl 20 Mg Capsule PO 20 mg DAILY DAIN Administration Guaifenesin 5 ml 11/09/20 19:03 11/11/20 05:32 Guaifenesin 100 Mg/5 Ml Liquid PO 5 ml Q4H PRN Administration Cough Ampicillin Sodium/Sulbactam 100 mls @ 200 mls/hr 11/11/20 08:00 11/11/20 08:59 Sodium 3 gm/ Sodium Chloride IV 200 mls/hr Q8H DAIN Administration Lorazepam 1 mg 11/09/20 13:09 11/10/20 08:58 Lorazepam 1 Mg Tablet PO 1 mg Q6H PRN Administration Anxiety Magnesium Hydroxide 30 ml 11/09/20 13:13 Milk Of Magnesia 30 Ml Oral.Susp PO DAILY PRN Constipation Melatonin 6 mg 11/09/20 12:56 Melatonin 3 Mg Tablet PO BEDTIME PRN Sleep Morphine Sulfate 2 mg 11/09/20 13:17 Morphine Sulfate 2 Mg/Ml Cartridge IVPUSH Q4H PRN Pain, Severe (Pain Scale 7-10) Nicotine 21 mg 11/09/20 13:15 11/11/20 08:59 Nicotine 21 Mg Patch.Td24 TRANSDERMA Not Given DAILY DAIN Ondansetron HCl 4 mg 11/09/20 12:57 Ondansetron Hcl 4 Mg/2 Ml Vial IVPUSH Q8H PRN Nausea and Vomiting Risperidone 1 mg 11/10/20 21:00 11/10/20 20:04 Risperidone 1 Mg Tablet PO 1 mg BEDTIME DAIN Administration Sodium Chloride 3 ml 11/09/20 16:00 11/11/20 08:59 0.9 % Sodium Chloride Flush 3 Ml Syringe IVFLUSH 3 ml QSHIFT DAIN Administration Home Medications Medication Instructions Recorded Confirmed Type aspirin 81 mg PO DAILY 11/09/20 11/09/20 History atorvastatin 1 tab PO DAILY 11/09/20 11/09/20 History fluoxetine 1 cap PO QAM 11/09/20 11/09/20 History risperidone 1 tab PO BEDTIME 11/09/20 11/09/20 History Allergies Allergy/AdvReac Type Severity Reaction Status Date / Time No Known Allergies Allergy Verified 11/09/20 09:06 Physical Exam Vital signs: Vital Signs Temp 97.5 F 11/11/20 07:49 Pulse 80 11/11/20 07:49 Resp 18 11/11/20 07:49 BP 101/54 L 11/11/20 07:49 Pulse Ox 96 11/11/20 07:49 Intake & Output 11/10/20 11/11/20 11/11/20 18:59 06:59 18:59 Intake Total 340 / 340 Output Total 250 / 1800 1550 / 1800 Balance -250 / -1460 -1210 / -1460 Urine Output (Average ml/kg/hr) 0.40 2.57 Intake: Intake, Oral Amount 340 / 340 Output: Output, Urine Amount 250 / 1800 1550 / 1800 Other: Dinner % Eaten <25% Urine Urinal Urine Color Yellow Weight 50.2 kg [place] Weight in Grams [id number] Weight 50.2 kg - Constitutional Present: no acute distress, cachectic, chronically ill appearing - Routine HEENT Exam Head: Present: normal inspection Eye: Present: EOMI, conjunctivae pale, PERRL - Routine Neck Exam Present: supple. Absent: lymphadenopathy - Routine Respiratory Exam Present: decreased breath sounds. Absent: accessory muscle use - Routine Cardiovascular Exam Cardiovascular: Present: S1, S2 - Routine Extremities Exam Absent: calf tenderness, pedal edema - Routine Skin Exam Present: intact - Routine Neurological Exam Present: alert, oriented X3 Hem/Onc Consult Result - Labs CBC & Chem 7: 11/11/20 08:10 11/11/20 08:10 Labs: Short CBC 11/11/20 Range/Units 08:10 WBC 11.1 H (4.8-10.8) X10*3/uL Hgb 8.4 L (14.0-18.0) g/dl Hct 28.1 L (42-52) % Plt Count 461 H (160-400) X10*3/uL BMP 11/11/20 08:10 Sodium 134 L Potassium 4.5 Chloride 101 Carbon Dioxide 26 BUN 5 L Creatinine 0.60 Calcium 10.0 Assessment and Plan (1) Lung mass Status: Acute 1. This is a 70-year-old male, chronic smoker with a right lower lobe mass and postobstructive pneumonia. He also has suspicious mediastinal lymphadenopathy, reactive versus malignancy. He has had significant weight loss and anorexia. He is on IV antibiotics. He has been seen by Pulmonary and is scheduled for bronchoscopy /biopsy in the following days. Tumor markers are not elevated. Depending on pathology further recommendations will be made. 2. Iron deficiency anemia. Start iron supplementation, he will need GI evaluation to rule out GI blood losses and malignancy. I thank you for this consultation.
--- NOTE | 2020-11-11 09:48 | P.CDIC_ITS ---
CDI Concurrent Query Service Date: 11/11/20 Documentation Clarification: Please clarify if you are treating a proba ble/suspected/likely or confirmed: Malnutrition, please specify type (Mild, Moderate, Severe protein calorie) No Malnutrition Provider Response: Severe Protein-Calorie Malnutrition PLEASE DO NOT DELETE/MODIFY EXISTING CONTENT Additional information is needed in order to code to the highest accuracy and appropriate Severity of Illness (SOI). Please clarify the information noted below in your progress notes and discharge summary. Risk Factors/Clinical Indicators/Treatments 70 year old male admitted with dyspnea, cough, SOB Per MD notes: gaunt, emaciated, unintentional weight loss WT. 50.2 BMI 16.8 HT. 5'8 No Nutrition note in EMR CDS: Shiela Lee RN Contact Number: [phone] Please Review the information above and exercise your independent professional judgment in responding to the query. If you concur, pleas document in the PROGRESS NOTES and DISCHARGE SUMMARY. If you do not agree with the query, please document in the query above. THIS QUERY IS PART OF THE PERMANENT MEDICAL RECORD
[2020-11-11 11:22] VITALS: BP 109/49; PULSE 83; RESP 18; TEMP 36.4; O2SAT 95
--- NOTE | 2020-11-11 11:49 | P.PNIM_ITS ---
Subjective Subjective Date of Service: 11/11/20 <Sarahy Romero NP - Last Filed: 11/11/20 12:01> 11/11/20 <Kwan Anthony MD - Last Filed: 11/11/20 19:54> Physical Exam Vital Signs: Vital Signs: Last Vital Signs Temp 97.6 F 11/11/20 11:22 Pulse 83 11/11/20 11:22 Resp 18 11/11/20 11:22 BP 109/49 L 11/11/20 11:22 Pulse Ox 95 11/11/20 11:22 Body Mass Index 16.8 <Sarahy Romero NP - Last Filed: 11/11/20 12:01> Frail appearing lung sounds rhonchi heart regular rate rhythm, clear S1, S2 positive bowel sounds, abdomen is soft, nontender neuro patient is alert x3, no focal deficits <Sarahy Romero NP - Last Filed: 11/11/20 12:01> Objective Data Current Medications Generic Name Dose Route Start Last Admin Trade Name Carolyn PRN Reason Stop Dose Admin Acetaminophen 650 mg 11/09/20 12:57 Acetaminophen 325 Mg Tablet PO Q4H PRN Pain, Moderate (Pain Scale 4-6 Albuterol/Ipratropium 3 ml 11/09/20 16:00 11/11/20 11:07 Albuterol/Iprat 2.5/0.5mg 3 Ml Ampul.Neb INHALE Not Given RQ4H WHILE AWAKE DAIN Albuterol/Ipratropium 3 ml 11/09/20 13:02 Albuterol/Iprat 2.5/0.5mg 3 Ml Ampul.Neb INHALE Q2H PRN Shortness of Breath Atorvastatin Calcium 40 mg 11/11/20 09:00 11/11/20 08:59 Atorvastatin Calcium 40 Mg Tablet PO 40 mg DAILY DAIN Administration Docusate Sodium 100 mg 11/09/20 12:57 Docusate Sodium 100 Mg Capsule PO BID PRN Constipation Enoxaparin Sodium 40 mg 11/10/20 18:00 11/10/20 17:38 Enoxaparin Sodium 40 Mg/0.4 Ml Syringe SUBCUT 40 mg Q24H DAIN Administration Fluoxetine HCl 20 mg 11/10/20 13:00 11/11/20 08:59 Fluoxetine Hcl 20 Mg Capsule PO 20 mg DAILY DAIN Administration Guaifenesin 5 ml 11/09/20 19:03 11/11/20 10:08 Guaifenesin 100 Mg/5 Ml Liquid PO 5 ml Q4H PRN Administration Cough Ampicillin Sodium/Sulbactam 100 mls @ 200 mls/hr 11/11/20 08:00 11/11/20 1 0:01 Sodium 3 gm/ Sodium Chloride IV Infused Q8H DAIN Infusion Lorazepam 1 mg 11/09/20 13:09 11/10/20 08:58 Lorazepam 1 Mg Tablet PO 1 mg Q6H PRN Administration Anxiety Magnesium Hydroxide 30 ml 11/09/20 13:13 Milk Of Magnesia 30 Ml Oral.Susp PO DAILY PRN Constipation Melatonin 6 mg 11/09/20 12:56 Melatonin 3 Mg Tablet PO BEDTIME PRN Sleep Morphine Sulfate 2 mg 11/09/20 13:17 Morphine Sulfate 2 Mg/Ml Cartridge IVPUSH Q4H PRN Pain, Severe (Pain Scale 7-10) Nicotine 21 mg 11/09/20 13:15 11/11/20 08:59 Nicotine 21 Mg Patch.Td24 TRANSDERMA Not Given DAILY DAIN Ondansetron HCl 4 mg 11/09/20 12:57 Ondansetron Hcl 4 Mg/2 Ml Vial IVPUSH Q8H PRN Nausea and Vomiting Risperidone 1 mg 11/10/20 21:00 11/10/20 20:04 Risperidone 1 Mg Tablet PO 1 mg BEDTIME DAIN Administration Sodium Chloride 3 ml 11/09/20 16:00 11/11/20 08:59 0.9 % Sodium Chloride Flush 3 Ml Syringe IVFLUSH 3 ml QSHIFT DAIN Administration <Sarahy Romero NP - Last Filed: 11/11/20 12:01> Labs CBC & Chem 7: : 11/11/20 08:10 11/11/20 08:10 <Sarahy Romero NP - Last Filed: 11/11/20 12:01> Microbiology Microbiology Results: Microbiology 11/09/20 13:47 Blood - Venous Blood Culture - Preliminary No growth after 24 hours. 11/09/20 13:47 Blood - Venous Blood Culture - Preliminary No growth after 24 hours. <Sarahy Romero NP - Last Filed: 11/11/20 12:01> Assessment and Plan (1) Lung mass: Status: Acute <Sarahy Romero NP - Last Filed: 11/11/20 12:01> Assessment and Plan: 70/m with depression, HLD, heavy smoking history here with SOB, cough, unintentional weight loss and found to have lung mass that is in all probability lung cancer and post obstructive pneumonia Lung mass high suspcious for lung cancer in setting of heavy smoking history, unintentional weight loss -bronchosocpy tomorrow -NPO after midnight -Oncology consult Postobstructive Pneumonia. No fever, normal WBC -Unasyn for now -neg blood cx after 24 hrs Microcytic Anemia. There is no evidence of acute blood loss, no history of colonoscopy, -check occult blood -GI consult for blood losses and malignancy -Iron supp Hyponatremia. 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 -NS COPD. -Brochodilators scheduled and PRN, hold of steroid for now Chronic tobacco dependency -Nicotine replacement, and cessation discussed HLD -Lipitor Depression. -continue Fluoxetine, Trazadone at night Anxiety -Ativan PRN Prognosis is poor DVT prophylaxis with Lovenox. Full code Attending: Dr. Anthony <Sarahy Romero NP - Last Filed: 11/11/20 12:01> (2) Severe protein-calorie malnutrition: Status: Acute <Sarahy Romero NP - Last Filed: 11/11/20 12:01> Assessment and Plan: Seen and examined, Finding, management and plan discussed with [employer], I agree with above in addition to severe protein calory malntrition--provide sup plement, and nutrition to see <Kwan Anthony MD - Last Filed: 11/11/20 19:54>
[2020-11-11 15:36] VITALS: BP 111/58; PULSE 93; RESP 18; TEMP 36.7; O2SAT 98
--- NOTE | 2020-11-11 15:45 | MHC.CM.PN ---
nurse rn progressive care note electronic medical record reviewed aONG WITH CASE DISCUSSED WITH STAFF NURSE , PER DOCUMENTATION Patient admitted with post obstructive pneumonia, chronic smoker with right lobe mass and suspicious mediastinal lymphadenopathy he reported significant weight loss and anorexia he continues to be on iv abx , evaluated by pulmonary and will be having a bronchoscope tomorrow with ? biopsy in FEW DAYS HE HAS BEEN STARTED ON IRON SUPPLEMENTATION AND WILL HAVE GASTRONENTEROLOGY EVALUATION TO RULE OUT GI BLOOD LOSS OR OTHER REASON discharge plan
[2020-11-11] MEDS: Albuterol/Iprat 2.5/0.5MG 3 ML AMPUL.NEB INHALE (15:55)
[2020-11-11] MEDS: Enoxaparin Sodium 40 MG/0.4 ML SYRINGE SUBCUT (16:21)
[2020-11-11 19:03] VITALS: BP 98/57; PULSE 90; RESP 16; TEMP 36.8; O2SAT 96
[2020-11-11] MEDS: risperiDONE 1 MG TABLET PO (21:14)
[2020-11-11 23:42] VITALS: BP 140/74; PULSE 91; RESP 16; TEMP 37.1; O2SAT 99
[2020-11-12] VITALS (17 sets, daily range): BP systolic 78–130; BP diastolic 43–75; PULSE 66–102; RESP 15–20; TEMP 36.1–36.8; O2SAT 92–100; BMI 16.0
[2020-11-12] MEDS: Albuterol/Iprat 2.5/0.5MG 3 ML AMPUL.NEB INHALE ×2 (07:38→11:20)
[2020-11-12] MEDS: 0.9 % Sodium Chloride Flush 3 ML SYRINGE IVFLUSH ×2 (08:35→15:53)
[2020-11-12] MEDS: FLUoxetine HCl 20 MG CAPSULE PO (08:35)
[2020-11-12] MEDS: Ampicillin Sodium/Sulbactam Na 3 GM in 0.9 % Sodium Chloride 100 ML IV ×2 (08:35→15:53)
[2020-11-12] MEDS: Atorvastatin Calcium 40 MG TABLET PO (08:35)
--- NOTE | 2020-11-12 11:13 | HO.PM.IMPN ---
Subjective Subjective Date of Service: 11/12/20 <Sarahy Romero NP - Last Filed: 11/12/20 15:40> 11/12/20 <Kwan Anthony MD - Last Filed: 11/12/20 21:05> Interval History: follow-up lung mass Feeling okay no shortness of breath Bronchoscopy today <Sarahy Romero NP - Last Filed: 11/12/20 15:40> Physical Exam Vital Signs: Vital Signs: Last Vital Signs Temp 97.8 F 11/12/20 07:37 Pulse 71 11/12/20 07:40 Resp 19 11/12/20 07:37 BP 121/66 11/12/20 07:37 Pulse Ox 97 11/12/20 07:37 Body Mass Index 16.0 <Sarahy Romero NP - Last Filed: 11/12/20 15:40> Appearing in no acute distress, thin and pale lung sounds rhonchi heart regular rate rhythm, clear S1, S2 positive bowel sounds, abdomen is soft, nontender neuro patient is alert x3, no focal deficits <Sarahy Romero NP - Last Filed: 11/12/20 15:40> Objective Data Current Medications Generic Name Dose Route Start Last Admin Trade Name Freq PRN Reason Stop Dose Admin Acetaminophen 650 mg 11/09/20 12:57 Acetaminophen 325 Mg Tablet PO Q4H PRN Pain, Moderate (Pain Scale 4-6 Albuterol/Ipratropium 3 ml 11/09/20 16:00 11/12/20 07:38 Albuterol/Iprat 2.5/0.5mg 3 Ml Ampul.Neb INHALE 3 ml RQ4H WHILE AWAKE DAIN Administration Albuterol/Ipratropium 3 ml 11/09/20 13:02 Albuterol/Iprat 2.5/0.5mg 3 Ml Ampul.Neb INHALE Q2H PRN Shortness of Breath Atorvastatin Calcium 40 mg 11/11/20 09:00 11/12/20 08:35 Atorvastatin Calcium 40 Mg Tablet PO 40 mg DAILY DAIN Administration Docusate Sodium 100 mg 11/09/20 12:57 Docusate Sodium 100 Mg Capsule PO BID PRN Constipation Enoxaparin Sodium 40 mg 11/10/20 18:00 11/11/20 16:21 Enoxaparin Sodium 40 Mg/0.4 Ml Syringe SUBCUT 40 mg Q24H DAIN Administration Fluoxetine HCl 20 mg 11/10/20 13:00 11/12/20 08:35 Fluoxetine Hcl 20 Mg Capsule PO 20 mg DAILY DAIN Administration Guaifenesin 5 ml 11/09/20 19:03 11/11/20 16:20 Guaifenesin 100 Mg/5 Ml Liquid PO 5 ml Q4H PRN Administration Cough Ampicillin Sodium/Sulbactam 100 mls @ 200 mls/hr 11/11/20 08:00 11/12/20 09:13 Sodium 3 gm/ Sodium Chloride IV Infused Q8H DAIN Infusion Lorazepam 1 mg 11/09/20 13:09 11/10/20 08:58 Lorazepam 1 Mg Tablet PO 1 mg Q6H PRN Administration Anxiety Magnesium Hydroxide 30 ml 11/09/20 13:13 Milk Of Magnesia 30 Ml Oral.Susp PO DAILY PRN Constipation Melatonin 6 mg 11/09/20 12:56 Melatonin 3 Mg Tablet PO BEDTIME PRN Sleep Morphine Sulfate 2 mg 11/09/20 13:17 Morphine Sulfate 2 Mg/Ml Cartridge IVPUSH Q4H PRN Pain, Severe (Pain Scale 7-10) Nicotine 21 mg 11/09/20 13:15 11/12/20 08:36 Nicotine 21 Mg Patch.Td24 TRANSDERMA Not Given DAILY DAIN Ondansetron HCl 4 mg 11/09/20 12:57 Ondansetron Hcl 4 Mg/2 Ml Vial IVPUSH Q8H PRN Nausea and Vomiting Risperidone 1 mg 11/10/20 21:00 11/11/20 21:14 Risperidone 1 Mg Tablet PO 1 mg BEDTIME DAIN Administration Sodium Chloride 3 ml 11/09/20 16:00 11/12/20 08:35 0.9 % Sodium Chloride Flush 3 Ml Syringe IVFLUSH 3 ml QSHIFT DAIN Administration <Sarahy Romero NP - Last Filed: 11/12/20 15:40> Labs CBC & Chem 7: : 11/11/20 08:10 11/11/20 08:10 <Sarahy Romero NP - Last Filed: 11/12/20 15:40> Microbiology Microbiology Results: Microbiology 11/09/20 13:47 Blood - Venous Blood Culture - Preliminary No growth after 48 hours. 11/09/20 13:47 Blood - Venous Blood Culture - Preliminary No growth after 48 hours. <Sarahy Romero NP - Last Filed: 11/12/20 15:40> Assessment and Plan (1) Lung mass: Status: Acute <Sarahy Romero NP - Last Filed: 11/12/20 15:40> Assessment and Plan: 70/m with depression, HLD, heavy smoking history here with SOB, cough, unintentional weight loss and found to have lung mass that is in all probability lung cancer and post obstructive pneumonia Lung mass high suspcious for lung cancer in setting of heavy smoking history, unintentional weight loss -bronchosocpy today -Oncology consult Postobstructive Pneumonia. No fever, normal WBC -Unasyn for now -neg blood cx after 48 hrs Severe iron deficiency. There is no evidence of acute blood loss, no history of colonoscopy, -iron infusion -check occult blood -Declined GI work-up for blood losses and malignancy Hyponatremia. 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 -NS COPD. -Brochodilators scheduled and PRN, hold of steroid for now Chronic tobacco dependency -Nicotine replacement, and cessation discussed HLD -Lipitor Depression. -continue Fluoxetine, Trazadone at night Anxiety -Ativan PRN Prognosis is poor DVT prophylaxis with Lovenox. Full code Attending: Dr. Anthony <Sarahy Romero NP - Last Filed: 11/12/20 15:40> I have seen and evaluated this patient. I have discussed the case and its management with the PY[employer] WE[employer] DEVELOPER and I agree with the findings and plan as documented in the PY[employer] WE[employer] DEVELOPER?s note. <Kwan Anthony MD - Last Filed: 11/12/20 21:05> (2) Severe protein-calorie malnutrition: Status: Acute <Sarahy Romero NP - Last Filed: 11/12/20 15:40> (3) Postobstructive pneumonia: Status: Acute <Sarahy Romero NP - Last Filed: 11/12/20 15:40>
--- NOTE | 2020-11-12 12:22 | PC.NURSE ---
sodium ferric gluconate administration off scheduled time due to procedure.Patient off floor.
--- NOTE | 2020-11-12 12:26 | MHC.SHP ---
Pre-Procedural Eval Section B Chief Complaint: pneumonia and lung mass Allergies: Allergies Allergy/AdvReac Type Severity Reaction Status Date / Time No Known Allergies Allergy Verified 11/09/20 09:06 Plan I have reviewed the history and physical and performed a pertinent physical examination on my patient. No changes have occurred unless specified.
--- NOTE | 2020-11-12 12:47 | P.CONAN_ITS ---
HPI - Anesthesia Eval Consult details Narrative: 70 yo male for lung mass PMFSH Active Problems Active Problems: All Active Problems (Updated 11/11/20 @ 19:53 by Kwan Anthony MD) Severe protein-calorie malnutrition (Acute) Lung mass (Acute) Postobstructive pneumonia (Acute) COPD (chronic obstructive pulmonary disease) (Acute) Depression (Acute) HLD (hyperlipidemia) (Acute) Community acquired pneumonia (Acute) Lung cancer (Acute) Past Medical History Medical History Depression HLD (hyperlipidemia) Social History Social History Household Members: Family Housing: House Do you presently have visiting nurse or other home services: No Alcohol intake: never Patient Tobacco Use Status: Current everyday Tobacco user Cigarette Packs Per Day: 0.5 Cigarettes Per Day: 10.0 Second Hand Smoke Exposure: No Advance Directives Date on File: 11/09/20 service: No Current occupational status: retired [employer] Allergies Allergy/AdvReac Type Severity Reaction Status Date / Time No Known Allergies Allergy Verified 11/09/20 09:06 Active Medications: Current Medications Generic Name Dose Route Start Last Admin Trade Name Freq PRN Reason Stop Dose Admin Acetaminophen 650 mg 11/09/20 12:57 Acetaminophen 325 Mg Tablet PO Q4H PRN Pain, Moderate (Pain Scale 4-6 Albuterol/Ipratropium 3 ml 11/09/20 16:00 11/12/20 11:20 Albuterol/Iprat 2.5/0.5mg 3 Ml Ampul.Neb INHALE 3 ml RQ4H WHILE AWAKE DAIN Administration Albuterol/Ipratropium 3 ml 11/09/20 13:02 Albuterol/Iprat 2.5/0.5mg 3 Ml Ampul.Neb INHALE Q2H PRN Shortness of Breath Atorvastatin Calcium 40 mg 11/11/20 09:00 11/12/20 08:35 Atorvastatin Calcium 40 Mg Tablet PO 40 mg DAILY DAIN Administration Docusate Sodium 100 mg 11/09/20 12:57 Docusate Sodium 100 Mg Capsule PO BID PRN Constipation Enoxaparin Sodium 40 mg 11/10/20 18:00 11/11/20 16:21 Enoxaparin Sodium 40 Mg/0.4 Ml Syringe SUBCUT 40 mg Q24H DAIN Administration Fluoxetine HCl 20 mg 11/10/20 13:00 11/12/20 08:35 Fluoxetine Hcl 20 Mg Capsule PO 20 mg DAILY DAIN Administration Guaifenesin 5 ml 11/09/20 19:03 11/11/20 16:20 Guaifenesin 100 Mg/5 Ml Liquid PO 5 ml Q4H PRN Administration Cough Ampicillin Sodium/Sulbactam 100 mls @ 200 mls/hr 11/11/20 08:00 11/12/20 09:13 Sodium 3 gm/ Sodium Chloride IV Infused Q8H DAIN Infusion Ferric Sodium Gluconate 110 mls @ 100 mls/hr 11/12/20 11:30 Complex 125 mg/ Sodium IV 11/14/20 10:05 Chloride DAILY DAIN Lorazepam 1 mg 11/09/20 13:09 11/10/20 08:58 Lorazepam 1 Mg Tablet PO 1 mg Q6H PRN Administration Anxiety Magnesium Hydroxide 30 ml 11/09/20 13:13 Milk Of Magnesia 30 Ml Oral.Susp PO DAILY PRN Constipation Melatonin 6 mg 11/09/20 12:56 Melatonin 3 Mg Tablet PO BEDTIME PRN Sleep Morphine Sulfate 2 mg 11/09/20 13:17 Morphine Sulfate 2 Mg/Ml Cartridge IVPUSH Q4H PRN Pain, Severe (Pain Scale 7-10) Nicotine 21 mg 11/09/20 13:15 11/12/20 08:36 Nicotine 21 Mg Patch.Td24 TRANSDERMA Not Given DAILY DAIN Ondansetron HCl 4 mg 11/09/20 12:57 Ondansetron Hcl 4 Mg/2 Ml Vial IVPUSH Q8H PRN Nausea and Vomiting Risperidone 1 mg 11/10/20 21:00 11/11/20 21:14 Risperidone 1 Mg Tablet PO 1 mg BEDTIME DAIN Administration Sodium Chloride 3 ml 11/09/20 16:00 11/12/20 08:35 0.9 % Sodium Chloride Flush 3 Ml Syringe IVFLUSH 3 ml QSHIFT DAIN Administration Home Medications Medication Instructions Recorded Confirmed Last Taken Type aspirin 81 mg PO DAILY 11/09/20 11/09/20 11/09/20 07:00 History atorvastatin 1 tab PO DAILY 11/09/20 11/09/20 11/09/20 07:00 History fluoxetine 1 cap PO QAM 11/09/20 11/09/20 11/08/20 22:00 History risperidone 1 tab PO BEDTIME 11/09/20 11/09/20 11/08/20 22:00 History Exam Exam Date and Time: November 12, 2020 124 Height,Weight and Vital Signs: Height 5 ft 8 in Weight 47.9 kg Last Vital Signs Temp 97.0 F 11/12/20 12:11 Pulse 82 11/12/20 12:11 Resp 18 11/12/20 12:11 BP 119/65 11/12/20 12:11 Pulse Ox 98 11/12/20 12:11 Pertinent Lab Results Pertinent Lab Results: Laboratory Tests 11/09/20 11/09/20 11/09/20 10:19 10:19 10:19 WBC 11.4 H RBC 3.71 L Hgb 7.8 L Hct 25.7 L MCV 69.3 L MCH 21.0 L MCHC 30.4 L RDW 18.2 H Plt Count 410 H MPV 8.3 L Immature Gran % (Auto) 0.4 Neut % (Auto) 83.6 H Lymph % (Auto) 9.2 L [place] % (Auto) 6.3 Eos % (Auto) 0.1 Baso % (Auto) 0.4 Lymph # (Auto) 1.1 L [place] # (Auto) 0.7 Eos # (Auto) 0.0 Baso # (Auto) 0.1 Abs Immat Gran (auto) 0.04 H Absolute Neuts (auto) 9.6 H Absolute Nucleated RBC 0.000 Nucleated RBC % (auto) 0.0 Absolute Retic 0.039 Percent Retic 1.1 Immature Retic Fraction 12.6 Retic Hgb Equivalent 22.7 L Hold Blue Top SEE NOTE Sodium 130 L Potassium 4.3 Chloride 97 Carbon Dioxide 25 Anion Gap 12 BUN 7 L Creatinine 0.63 Estim Creat Clear Calc 82.7 Estimated GFR > 60 Random Glucose 110 Lactic Acid Calcium 9.6 Iron 6 L TIBC 220 L % Saturation 3 L Unsat Iron Binding 214 Ferritin 282 H Lactate Dehydrogenase 141 Carcinoembryonic Ag 1.70 Vitamin B12 Folate COVID-19 ([facility]) COVID-19 Clin Com 11/09/20 11/09/20 11/09/20 10:19 10:19 13:47 WBC RBC Hgb Hct MCV MCH MCHC RDW Plt Count MPV Immature Gran % (Auto) Neut % (Auto) Lymph % (Auto) [place] % (Auto) Eos % (Auto) Baso % (Auto) Lymph # (Auto) [place] # (Auto) Eos # (Auto) Baso # (Auto) Abs Immat Gran (auto) Absolute Neuts (auto) Absolute Nucleated RBC Nucleated RBC % (auto) Absolute Retic Percent Retic Immature Retic Fraction Retic Hgb Equivalent Hold Blue Top Sodium Potassium Chloride Carbon Dioxide Anion Gap BUN Creatinine Estim Creat Clear Calc Estimated GFR Random Glucose Lactic Acid 1.7 Calcium Iron TIBC % Saturation Unsat Iron Binding Ferritin Lactate Dehydrogenase Carcinoembryonic Ag Vitamin B12 513 Folate 5.5 COVID-19 ([facility]) Negative COVID-19 Clin Com See Note 11/11/20 11/11/20 08:10 08:10 WBC 11.1 H RBC 3.98 L Hgb 8.4 L Hct 28.1 L MCV 70.6 L MCH 21.1 L MCHC 29.9 L RDW 18.6 H Plt Count 461 H MPV 8.4 L Immature Gran % (Auto) Neut % (Auto) Lymph % (Auto) [place] % (Auto) Eos % (Auto) Baso % (Auto) Lymph # (Auto) [place] # (Auto) Eos # (Auto) Baso # (Auto) Abs Immat Gran (auto) Absolute Neuts (auto) Absolute Nucleated RBC 0.000 Nucleated RBC % (auto) 0.0 Absolute Retic Percent Retic Immature Retic Fraction Retic Hgb Equivalent Hold Blue Top Sodium 134 L Potassium 4.5 Chloride 101 Carbon Dioxide 26 Anion Gap 12 BUN 5 L Creatinine 0.60 Estim Creat Clear Calc 83.6 Estimated GFR > 60 Random Glucose 102 Lactic Acid Calcium 10.0 Iron TIBC % Saturation Unsat Iron Binding Ferritin Lactate Dehydrogenase Carcinoembryonic Ag Vitamin B12 Folate COVID-19 ([facility]) COVID-19 Clin Com Airway Mallampati Class: III TM Dist: >3cm Neck ROM: Full Loose/Missing/Broken Teeth: Yes Heart: [id number] Lungs: cta b/l Assessment and Plan Assessment Anesthesia Assessment: Anesthesia Plan Discussed and Chart Reviewed Final Anesthetic Review NPO: Yes ASA Class: IV Final Preanesthetic Review: No Changes in Pt Med Stat, Meds/Allgs Chart Reviewed, Consent Obtained/Reviewed and Anes Risks/Benef Reviewed Patient Risk: High Procedure Risk: Low Assessment/Block/Sedation in SS: Assess/Block/Sedation-SS Anesthetic Plan Anesthetic Plan: GA and Agree w/ Assess. and Plan Disposition: Standard PACU
--- NOTE | 2020-11-12 14:21 | PM.GICN ---
History of Present Illness Data of Consult Service Date: 11/12/20 Requesting physician: Sarahy Romero Primary Care Provider: Michael Cervantes MD HPI Reason for consult: anemia 70-year-old gentleman, w/ hx of hyperlipidemia, smoker and depression who I am asked to see for evaluation of anemia. He was admitted with few days hx of SOB and worsening coughing. Work up revealed elevated white cell count, HGB 8 with iorn sat 3% and right lower lobe mass. He is being seen by pulmonology with plan for EBUS and being treated with ABX He does endorse weight loss of 50# over 1 yr with poor appetite. He denies abdo pain, no rectal bleeding, no melena, or hematuria, nose bleeds. He noted new onset constipation for few months with straining. He never had EGD or colonoscopy before. Review of Systems Review of Systems: Gen: no fever, unintentionall weight loss Resp: +sob, n+ cough CV: no chest, no ASHBY, no leg edema GI: No n/v, no abd pain Neuro: No confusion Yes all other systems are reviewed and are negative Constitutional: Constitutional: Reports as per HPI, Reports anorexia, Denies daytime sleepiness, Denies excessive sweating, Reports fatigue, Denies fever(s), Denies lethargy, Reports malaise, Denies night sweats, Reports poor appetite, Denies snoring and Reports weight loss Eyes: Eyes: Denies blurry vision and Denies itchy eyes ENT: Denies nasal congestion, Denies post nasal drip, Denies sinus pain, Denies sinus pressure and Denies other ( Thrush) Cardiovascular: Cardiovascular: Reports no additional cardiovascular complaints, Denies chest pain, Denies pedal edema, Reports dyspnea, Denies orthopnea and Denies paroxysmal nocturnal dyspnea Respiratory: Respiratory: Reports no additional respiratory complaints, Reports cough, Denies hemoptysis, Denies excessive phlegm production, Reports dyspnea, Denies snoring and Denies wheezing Gastrointestinal: Gastrointestinal: Reports no additional gastrointestinal complaints, Denies abdominal pain and Denies heartburn Musculoskeletal: Musculoskeletal: Denies myalgias, Denies arthralgias and Denies joint swelling Integumentary/Breasts: Skin/Breast: Denies rash Neurologic: Reports Abnormal speech present, Denies memory loss and Denies seizure-like activity Psychiatric: Psychiatric: Denies abnormal sleep pattern, Denies anxiety and Denies memory loss Endocrine: Endocrine: Denies excessive sweating, Reports fatigue and Denies heat intolerance Hematologic/Lymphatic: Hematologic/Lymphatic: Denies easy bruising Allergic/Immunologic: Allergic/Immunologic: Denies itchy eyes, Denies seasonal rhinorrhea and Denies wheezing PMFSH Past Medical History Medical History Depression HLD (hyperlipidemia) Social History Social History Household Members: Family Housing: House Do you presently have visiting nurse or other home services: No Alcohol intake: never Patient Tobacco Use Status: Current everyday Tobacco user Cigarette Packs Per Day: 0.5 Cigarettes Per Day: 10.0 Second Hand Smoke Exposure: No Advance Directives Date on File: 11/09/20 service: No Current occupational status: retired [employer] Allergies Allergy/AdvReac Type Severity Reaction Status Date / Time No Known Allergies Allergy Verified 11/09/20 09:06 Active Medications: Current Medications Generic Name Dose Route Start Last Admin Trade Name Freq PRN Reason Stop Dose Admin Acetaminophen 650 mg 11/09/20 12:57 Acetaminophen 325 Mg Tablet PO Q4H PRN Pain, Moderate (Pain Scale 4-6 Albuterol/Ipratropium 3 ml 11/09/20 16:00 11/12/20 11:20 Albuterol/Iprat 2.5/0.5mg 3 Ml Ampul.Neb INHALE 3 ml RQ4H WHILE AWAKE DAIN Administration Albuterol/Ipratropium 3 ml 11/09/20 13:02 Albuterol/Iprat 2.5/0.5mg 3 Ml Ampul.Neb INHALE Q2H PRN Shortness of Breath Atorvastatin Calcium 40 mg 11/11/20 09:00 11/12/20 08:35 Atorvastatin Calcium 40 Mg Tablet PO 40 mg DAILY DAIN Administration Docusate Sodium 100 mg 11/09/20 12:57 Docusate Sodium 100 Mg Capsule PO BID PRN Constipation Enoxaparin Sodium 40 mg 11/10/20 18:00 11/11/20 16:21 Enoxaparin Sodium 40 Mg/0.4 Ml Syringe SUBCUT 40 mg Q24H DAIN Administration Fentanyl 50 mcg 11/12/20 12:46 Fentanyl Citrate/Pf 100 Mcg/2 Ml Vial IVPUSH Q5M PRN Pain, Severe (Pain Scale 7-10) Fluoxetine HCl 20 mg 11/10/20 13:00 11/12/20 08:35 Fluoxetine Hcl 20 Mg Capsule PO 20 mg DAILY DAIN Administration Guaifenesin 5 ml 11/09/20 19:03 11/11/20 16:20 Guaifenesin 100 Mg/5 Ml Liquid PO 5 ml Q4H PRN Administration Cough Ampicillin Sodium/Sulbactam 100 mls @ 200 mls/hr 11/11/20 08:00 11/12/20 09:13 Sodium 3 gm/ Sodium Chloride IV Infused Q8H DAIN Infusion Ferric Sodium Gluconate 110 mls @ 100 mls/hr 11/12/20 11:30 Complex 125 mg/ Sodium IV 11/14/20 10:05 Chloride DAILY DAIN Lorazepam 1 mg 11/09/20 13:09 11/10/20 08:58 Lorazepam 1 Mg Tablet PO 1 mg Q6H PRN Administration Anxiety Magnesium Hydroxide 30 ml 11/09/20 13:13 Milk Of Magnesia 30 Ml Oral.Susp PO DAILY PRN Constipation Melatonin 6 mg 11/09/20 12:56 Melatonin 3 Mg Tablet PO BEDTIME PRN Sleep Morphine Sulfate 2 mg 11/09/20 13:17 Morphine Sulfate 2 Mg/Ml Cartridge IVPUSH Q4H PRN Pain, Severe (Pain Scale 7-10) Nicotine 21 mg 11/09/20 13:15 11/12/20 08:36 Nicotine 21 Mg Patch.Td24 TRANSDERMA Not Given DAILY DAIN Ondansetron HCl 4 mg 11/09/20 12:57 Ondansetron Hcl 4 Mg/2 Ml Vial IVPUSH Q8H PRN Nausea and Vomiting Ondansetron HCl 4 mg 11/12/20 12:46 Ondansetron Hcl 4 Mg/2 Ml Vial IVPUSH ONCE PRN Nausea and Vomiting Oxycodone HCl 10 mg 11/12/20 12:46 Oxycodone Hcl Immed Release 5 Mg Tablet PO ONCE PRN Pain, Mild (Pain Scale 1-3) Risperidone 1 mg 11/10/20 21:00 11/11/20 21:14 Risperidone 1 Mg Tablet PO 1 mg BEDTIME DAIN Administration Sodium Chloride 3 ml 11/09/20 16:00 11/12/20 08:35 0.9 % Sodium Chloride Flush 3 Ml Syringe IVFLUSH 3 ml QSHIFT [facility] Administration Home Medications Medication Instructions Recorded Confirmed Last Taken Type aspirin 81 mg PO DAILY 11/09/20 11/09/20 11/09/20 07:00 History atorvastatin 1 tab PO DAILY 11/09/20 11/09/20 11/09/20 07:00 History fluoxetine 1 cap PO QAM 11/09/20 11/09/20 11/08/20 22:00 History risperidone 1 tab PO BEDTIME 11/09/20 11/09/20 11/08/20 22:00 History Physical Exam Vital Signs: Vital Signs: Last Vital Signs Temp 97.0 F 11/12/20 12:11 Pulse 82 11/12/20 12:11 Resp 18 11/12/20 12:11 BP 119/65 11/12/20 12:11 Pulse Ox 98 11/12/20 12:11 Body Mass Index 16.0 Const: Other: Constitutional Awake and Alert, No apparent distress, he looks ill and gaunt, emaciated, slow speech, frontal balding and temporal wasting Neck Supple, No lymphadenopathy HEENT:PERRLA, no sclera icteris Cardiovascular RRR, No M/R/G, S1 S2, No S3 S4, No pedal edema Respiratory Lungs clear, No respiratory distress Gastrointestinal Non tender, Non-distended Skin No rash Neurological Alert & oriented x3 Psychological Appropriate affect General: no acute distress, alert, awake and ill appearing Nutritional Appearance: cachectic Limitations: No language barrier Eyes: Sclerae: sclerae normal EOM: EOMs intact bilaterally Neck: Neck: Yes no lymphadenopathy, Yes trachea midline and Yes supple Resp: Effort & Inspection: normal respiratory effort and no respiratory distress Auscultation: other (Poor air movement at the right base) Cardio: Rate: regular rate Rhythm: regular rhythm Heart sounds: no gallops, no murmurs and no rubs GI: Palpation (GI): Soft to palpation and Other GI palpation findings present ( Nontender) Auscultation: normal bowel sounds : General: Yes no CVA tenderness Back/Spine/Pelvis: Back: no CVA tenderness Neuro: General: tone normal Speech: Abnormal speech present Extrem: General: Yes no pedal edema, No clubbing and No cyanosis Psych: Appearance: disheveled Speech and movement: Slowed speech present (Psych); No Normal speech and movement present Results Labs CBC & Chem 7: 11/11/20 08:10 11/11/20 08:10 Microbiology Microbiology Results: Microbiology 11/09/20 13:47 Blood - Venous Blood Culture - Preliminary No growth after 48 hours. 11/09/20 13:47 Blood - Venous Blood Culture - Preliminary No growth after [address] chest iamges personally reviewed and RLL mass/scarring noted Assessment and Plan (1) Iron deficiency anemia due to chronic blood loss: Status: Acute 1/ Iron def anemia, unknown time duration, no overt bleeding but admits to change in bowel habit. Concern would be possible GI malignancy in addition to a primary or metastatic lung lesion PLAN: 1/ I did recommend EGD,colonoscopy to patient but he declined, if he changes his mind let me know and I can reassess for these procedures. CT did not reveal any obvious GI lesions. as an aside I wonder if he also has mytonic dystrophy based on his facial appearance and delayed speech. Procedures Date of Service Date of Service: 11/12/20
[2020-11-12] MEDS: Enoxaparin Sodium 40 MG/0.4 ML SYRINGE SUBCUT (17:00)
[2020-11-12] MEDS: guaiFENesin 100 MG/5 ML LIQUID PO (17:20)
[2020-11-12] MEDS: Sodium Ferric Gluconat/Sucrose 125 MG in 0.9 % Sodium Chloride 100 ML 100 MG IV (17:34)
--- NOTE | 2020-11-12 18:40 | P.BOP_ITS ---
Brief Operative Note Date of Service: 11/12/20 Pre-op diagnosis: pneumonia, lung mass Post-op diagnosis: other (lung cancer, post obstructive pneumonia) Procedure: EBUS with TBNA station 4R and 7, bronchoscopy with biopsy and washings Surgeon: Rashad Romero MD Anesthesia: GETA Was an Junior Administrative Assistant used for this Procedure?: No Estimated blood loss (mL): 5 Pathology: other (TBNA station 4R,7, bx RLL mass) Condition: stable Disposition: floor
[2020-11-12] MEDS: risperiDONE 1 MG TABLET PO (21:11)
[2020-11-13] MEDS: Ampicillin Sodium/Sulbactam Na 3 GM in 0.9 % Sodium Chloride 100 ML IV ×2 (00:18→07:53)
[2020-11-13 04:00] VITALS: BP 111/63; PULSE 63; RESP 16; TEMP 36.6; O2SAT 96
[2020-11-13 06:00] VITALS: BMI 15.8
[2020-11-13 07:36] VITALS: BP 133/70; PULSE 65; RESP 17; TEMP 36.4; O2SAT 96
[2020-11-13] MEDS: Atorvastatin Calcium 40 MG TABLET PO (07:55)
[2020-11-13] MEDS: FLUoxetine HCl 20 MG CAPSULE PO (07:56)
[2020-11-13 09:03] LABS: Hematocrit 25.8 % (42-52); Hemoglobin 7.7 g/dl (14.0-18.0); Mean Corpuscular HGB Conc 29.8 g/dl (31.0-36.0); Mean Corpuscular Hemoglobin 21.3 pg (27.0-33.0); Mean Corpuscular Volume 71.3 fL (80-98); Platelet Count 463 X10*3/uL (160-400); Red Blood Count 3.62 X10*6/uL (4.60-5.80); Red Cell Distribution Width 18.6 % (11.0-16.0); White Blood Count 12.4 X10*3/uL (4.8-10.8)
[2020-11-13] MEDS: 0.9 % Sodium Chloride Flush 3 ML SYRINGE IVFLUSH (09:27)
[2020-11-13 09:31] LABS: Anion Gap 13 (12-20); Blood Urea Nitrogen 11 mg/dL (9-16); Calcium 9.8 mg/dL (8.4-10.2); Carbon Dioxide 24 mmol/L (22-29); Chloride 104 mmol/L (96-108); Creatinine Clr Calc Pharmacy 80.3; Estimated Glomerular Filt Rate > 60; Glucose Random 138 mg/dL (60-115); Iron 65 mcg/dL (45-160); Percent Iron Saturation 30 % (15-50); Potassium 4.4 mmol/L (3.3-5.1); Sodium 137 mmol/L (135-145); Total Iron Binding Capacity 215 mcg/dL (228-428); Unsaturated Iron Binding 150 ug/dL
[2020-11-13] MEDS: Sodium Ferric Gluconat/Sucrose 125 MG in 0.9 % Sodium Chloride 100 ML 100 MG IV (10:10)
[2020-11-13] MEDS: guaiFENesin 100 MG/5 ML LIQUID PO (11:27)
[2020-11-13 11:40] VITALS: BP 98/55; PULSE 65; RESP 17; TEMP 36.2; O2SAT 98
[2020-11-13 11:44] VITALS: BMI 15.8
--- NOTE | 2020-11-13 11:55 | P.F2F_ITS ---
Service Date Service Date: 11/13/20 Encounter Date of encounter: 11/13/20 Reasons for Services Reason for intermediate: teach disease management Reason for physical therapy: home safety and mobility Overseeing Care: Michael Cervantes Homebound: Leaving the home is medically contraindicated at this time without the asist of a device and/or another person due th the listed conditions above and below. Reason homebound: unsteady gait / fall risk Certification: Based on the above findings, I certify that this patient is confined to the home and needs intermittent intermediate care, physical therapy and/or speech therapy, or continues to need occupational therapy. The patient is under my care, and I have initiated the establishment of the plan of care. The patient will be followed by a physician who will periodically review the plan of care.
--- NOTE | 2020-11-13 11:55 | PM.DS ---
DS: Providers Provider Date of Service: 11/13/20 <Sarahy Romero NP - Last Filed: 11/13/20 16:38> Date of admission: 11/09/20 13:12 <Sarahy Romero NP - Last Filed: 11/13/20 16:38> Date of discharge: 11/13/20 <Sarahy Romero NP - Last Filed: 11/13/20 16:38> Primary care physician: Michael Cervantes MD <Sarahy Romero NP - Last Filed: 11/13/20 16:38> Admitting clinician: Kwan Anthony <Sarahy Romero NP - Last Filed: 11/13/20 16:38> Attending physician on admission: Kwan Romero NP - Last Filed: 11/13/20 16:38> Consults: 11/09/20 13:00 Consult to Pulmonology Routine Consulting Provider: Bruno Flynn Reason for consultation: lung mass, assess for bronchoscopy Has provider been notified: No 11/09/20 13:01 Consult to Hematology / Oncology Routine Consulting Provider: Sarahy Zaragoza Reason for consultation: Lung cancer Has provider been notified: No 11/12/20 11:15 Consult to Gastroenterology Routine Consulting Provider: Jose Alberto Tirado Reason for consultation: gi bleed Has provider been notified: No <Sarahy Romero NP - Last Filed: 11/13/20 16:38> Attending physician on discharge: Kwan Romero NP - Last Filed: 11/13/20 16:38> Discharging clinician: Sarahy Romero <Sarahy Romero NP - Last Filed: 11/13/20 16:38> DS: Diagnosis Discharge Diagnosis (1) Lung mass: Status: Acute <Sarahy Romero NP - Last Filed: 11/13/20 16:38> (2) Severe protein-calorie malnutrition: Status: Acute <Sarahy Romero NP - Last Filed: 11/13/20 16:38> (3) Postobstructive pneumonia: Status: Acute <Sarahy Romero NP - Last Filed: 11/13/20 16:38> DS: Medications Discharge Medications Home Medications: Home Medications Medication Instructions Recorded Confirmed aspirin 81 mg PO DAILY 11/09/20 11/09/20 atorvastatin 1 tab PO DAILY 11/09/20 11/09/20 fluoxetine 1 cap PO QAM 11/09/20 11/09/20 risperidone 1 tab PO BEDTIME 11/09/20 11/09/20 Previous Rx's Medication Instructions Recorded amoxicillin-pot clavulanate 1 tab PO BID #8 tab 11/13/20 [Augmentin] ferrous sulfate 325 mg PO DAILY #30 tab 11/13/20 <Sarahy Romero NP - Last Filed: 11/13/20 16:38> DS: Summary Hospital Course Hospital Course: HP as per admitting provider 63 year male with with HLD, dpression, heavy smoker who presents with ED with SOB with exertion, non productive cough, progressive weakness =,anorexia, unintentional weight --couldn't specifiy how much for about a year. his coughing and dyspnea have worsened over the course of the last 2 to 3 days and as a result he stopped smoking . he was coughing weakly throughout my evaluation. He denies fever or chills, covid is negative . Suspected lung mass. History of heavy smoking. Recent unintentional weight loss. Cough with sputum. Evaluated by pulmonology, underwent bronchoscopy on 11/12/2020 with postop diagnosis of likely lung cancer, postobstructive pneumonia. Underwent bronchoscopy with biopsy and washing. Follow up biopsy results with Dr. Zaragoza, strip stamp straightener/oncologist. Postobstructive pneumonia. Secondary to lung mass. Treated with Unasyn while inpatient. Blood cultures negative after 48 hours. Discharged with Augmentin to complete course of antibiotics for pneumonia. Severe iron deficiency. No evidence of acute blood loss and no history of colonoscopy. Declined gastroenterology consultation if reconsidered discussed with primary care provider for referral received iron infusion while inpatient, will continue with oral iron supplementation. COPD. Treated with scheduled and as needed bronchodilators. No steroids. Severe protein calorie malnutrition. Encouraged to increase protein in diet and eat more regular meals. Tobacco dependency. Receive nicotine replacement. Discussed the importance of smoking cessation. <Sarahy Romero NP - Last Filed: 11/13/20 16:38> Time Spent with Patient Time attestation: Total time spent providing and/or coordinating discharge services: <Sarahy Romero NP - Last Filed: 11/13/20 16:38> Discharge coordination time: Greater than 30 minutes <Sarahy Romero NP - Last Filed: 11/13/20 16:38> Quality: Stroke Does the patient have a stroke diagnosis?: No <Sarahy Romero NP - Last Filed: 11/13/20 16:38> Physical Exam Vital Signs: Vital Signs: Last Vital Signs Temp 97.1 F 11/13/20 11:40 Pulse 65 11/13/20 11:40 Resp 17 11/13/20 11:40 BP 98/55 L 11/13/20 11:40 Pulse Ox 98 11/13/20 11:40 Body Mass Index 15.8 <Sarahy Romero NP - Last Filed: 11/13/20 16:38> Appearing in no acute distress head is normocephalic atraumatic eyes pupils are PERRLA sclera is anicteric mouth throat mucous membranes are intact and moist neck is supple no lymphadenopathy, no JVD noted lung sounds are clear to auscultation heart regular rate rhythm, clear S1, S2 positive bowel sounds, abdomen is soft, nontender neuro patient is alert x3, no focal deficits <Sarahy Romero NP - Last Filed: 11/13/20 16:38> DS: Data Data Completed and Pending Pending studies at discharge: Pending at discharge 11/12/20 14:44 Surgical [PTH] Routine Cytology [PTH] Routine <Sarahy Romero NP - Last Filed: 11/13/20 16:38> Labs on day of discharge: Laboratory Results - last 24 hr 11/13/20 11/13/20 08:22 08:22 WBC 12.4 H RBC 3.62 L Hgb 7.7 L Hct 25.8 L MCV 71.3 L MCH 21.3 L MCHC 29.8 L RDW 18.6 H Plt Count 463 H MPV 9.0 L Absolute Nucleated RBC 0.000 Nucleated RBC % (auto) 0.0 Sodium 137 Potassium 4.4 Chloride 104 Carbon Dioxide 24 Anion Gap 13 BUN 11 D Creatinine 0.59 Estim Creat Clear Calc 80.3 Estimated GFR > 60 Random Glucose 138 H D Calcium 9.8 Iron 65 TIBC 215 L % Saturation 30 Unsat Iron Binding 150 Preliminary micro results at discharge 11/12/20 Unknown Routine Culture - Preliminary Bronchial Washings No growth to date. 11/09/20 13:47 Blood Culture - Preliminary Blood - Venous No growth after 48 hours. 11/09/20 13:47 Blood Culture - Preliminary Blood - Venous No growth after 48 hours. <Sarahy Romero NP - Last Filed: 11/13/20 16:38> Discharge Plan Discharge Anticipated Discharge Date/Time: 11/13/20 08:03 <Sarahy Romero NP - Last Filed: 11/13/20 16:38> Patient Disposition: Home Health Service <Sarahy Romero NP - Last Filed: 11/13/20 16:38> Discharge Diagnosis: Postobstructive pneumonia Lung mass COPD <Sarahy Romero NP - Last Filed: 11/13/20 16:38> Postobstructive pneumonia Lung mass COPD <Kwan Anthony MD - Last Filed: 11/13/20 22:13> Referrals: [facility] [Outside] - 1 Day (HOME WITH THE [facility] FOR NURSING AND [facility]YS[facility]AI[facility] PCP [facility] Michael Pace MD [Primary Care Provider] - 1 Week Sarahy Zaragoza MD [Physician] - 1 Week ( biopsy results) <Sarahy Romero NP - Last Filed: 11/13/20 16:38> Discharge Medications: New ferrous sulfate 325 mg (65 mg iron) tablet 325 mg PO DAILY Qty: 30 RF: 0 amoxicillin-pot clavulanate [Augmentin] 875-125 mg tablet 1 tab PO BID Qty: 8 RF: 0 Continued aspirin 81 mg Tablet 81 mg PO DAILY RF: 0 atorvastatin 40 mg tablet 1 tab PO DAILY RF: 0 fluoxetine 20 mg capsule 1 cap PO QAM RF: 0 risperidone 1 mg tablet 1 tab PO BEDTIME RF: 0 <Sarahy Romero NP - Last Filed: 11/13/20 16:38> Discharge Orders: Discharge Order (Routine); Ordered 11/13/20 Ordered By: Sarahy Romero <Sarahy Romero NP - Last Filed: 11/13/20 16:38> Diet: advance to usual diet <Sarahy Romero NP - Last Filed: 11/13/20 16:38> advance to usual diet <Kwan Anthony MD - Last Filed: 11/13/20 22:13> Activity on Discharge: As tolerated <Sarahy Romero NP - Last Filed: 11/13/20 16:38> As tolerated <Kwan Anthony MD - Last Filed: 11/13/20 22:13> Stand Alone Forms: Patient Portal Discharge page <Sarahy Romero NP - Last Filed: 11/13/20 16:38> Care Plan Goals: smoking cessation Resolution of pneumonia <Sarahy Romero NP - Last Filed: 11/13/20 16:38> Health Concerns: Postobstructive pneumonia Lung mass COPD <Sarahy Romero NP - Last Filed: 11/13/20 16:38> Plan of Treatment: Follow-up with Dr. Tierney, oncologist for biopsy results Increase your food intake to include more proteins, vegetables for fiber and iron Stop smoking cigarettes <Sarahy Romero NP - Last Filed: 11/13/20 16:38> Assessment: see discharge summary I saw and examined the patient and discuss the mangement and disposition with DRAINAGE ENGINEER and agree with discharge dispositon and plan as outline in DRAINAGE ENGINEER note. Necrotizing Pneumonia with concern for malignancy, had broch gram stain is negative, Bx result is pending, to finish course of abx and to follow up with oncology and pulmonology <Sarahy Romero NP - Last Filed: 11/13/20 16:38> Discharge Date/Time: 11/13/20 12:02 <Sarahy Romero NP - Last Filed: 11/13/20 16:38>
--- NOTE | 2020-11-13 11:58 | MHC.CLN ---
PT IS SEVERELY MALNOURISHED PT WITH MODERATELY DEPLETED SUBCUTANEOUS FAT AND MUSCLE MASS, BMI 16 PT REPORTED 20# WT LOSS OVER A FEW MONTHS WITH CHRONIC POOR PO INTAKE DIET RX: 2GM NA- PT MAY BENEFIT FROM LIBERALIZED DIET RECOMMEND REGULAR DIET PT RECEPTIVE TO DRINKING ENSURE-WILL ADD BID SUPPLEMENT TO PROVIDE 700KCALS, 40G PROTEIN MONITOR PO INTAKE CLOSELY SEE ALSO CLINICAL NUTRITION ASSESSMENT
--- NOTE | 2020-11-13 12:53 | MHC.CM.PN ---
NURSE COTTON STRIPPER NOTE ELECTRONIC MEDICAL RECORD REVIEWED ALONG WITH EDVIN EDISCUSSED WITH STAFF NURSE AND THE HSP[ITLAIST PATIENT WILL BE DISCHARGED HOME TODAY WITH HIS SISTER AND HER DAUGHTER NEW REFERRAL TO THE [facility] FOR NURSING FOR DIAGNOSIS SIGN SYMPTOM MANAGEMENT AND HOME PHYSICALT HEAPRY PCP PATIENT /FMILY TO CALL FOR APPOINTMENT T/V TO P[ATIENT SISTER TO INFORM HER OF THE DISCHARGE FOLLOW UP,
--- NOTE | 2020-11-13 14:23 | HO.POSTANES ---
Post Anesthesia Evaluation Post Anesthesia Evaluation Vital Signs: Vital Signs Temp Pulse Resp BP Pulse Ox 11/13/20 11:40 97.1 F 65 17 98/55 L 98 11/13/20 07:36 97.6 F 65 17 133/70 96 11/13/20 04:00 97.9 F 63 16 111/63 96 Anesthesia: General Endotracheal-GETA Mental Status: Awake Pain Control: Satisfactory Nausea/Vomiting: None Hydration: Adequate Anesthesia-Related Issues: No Anes. Related Issues
--- NOTE | 2020-11-15 12:59 | OP_ITS ---
SURGEON: Rashad Romero MD PREOPERATIVE DIAGNOSIS: POSTOPERATIVE DIAGNOSIS: PROCEDURE PERFORMED: Endobronchial ultrasound bronchoscopy with transbronchial needle aspirations with station 4R and station 7, and bronchoscopy with endobronchial biopsies and washings. ESTIMATED BLOOD LOSS: COMPLICATIONS: ANESTHESIA: General endotracheal anesthesia was provided. ASSISTANTS: None. SPECIMENS: ASA CLASSIFICATION: 4. PREOPERATIVE DIAGNOSES: Lung mass and pneumonia. POSTOPERATIVE DIAGNOSES: Postobstructive pneumonia and lung cancer. DESCRIPTION OF PROCEDURE: After the patient was adequately sedated and intubated, the flexible digital bronchoscope with endobronchial ultrasound bronchoscopy. EBUS was inserted via the ET tube to the level of the main jairo. Using ultrasound guidance, the different lymph node stations were appreciated. The patient appeared to have about a centimeter 4R lymph node and about a centimeter and a half station 7 lymph nodes, which appears to be significantly vascular. Using ultrasound guidance, transbronchial needle aspirations of station 4R were attempted. Three specimens were collected and provided to the . After that, 3 passes at stations 7 were also done, sent to the pathologist. The bronchoscope with EBUS was then removed, replaced with the regular bronchoscopy. Regular bronchoscopy Q180 was inserted via the ET tube to the level of the main jairo. There was significant endobronchial disease primarily at the level of the takeoff of the bronchus intermedius and also had irregular mucosa up to the main jairo. There appeared to be near complete obstruction of the bronchus intermedius due to a fungating mass, which appeared to be very friable with significant bleeding. The left lung was completely normal. No endobronchial lesions or masses. No secretions and no bleeding. Using biopsy forceps, endobronchial biopsies were collected from the bronchus intermedius lung mass and sent to pathology. There was some bleeding. Epinephrine was used, 1 ampule, with good hemostasis. Iced saline was also used with good hemostasis. The patient was not bleeding at the end of the procedure. The bronchoscope was then removed. The total endoscopic time approximately 40 minutes. The patient tolerated the procedure well. No complications and about 5 mL of blood loss. INTERPRETATION: 1. EBUS-TBNA of station 4R and station 7, and two endobronchial biopsies of bronchus intermedius lung mass concerning for cancer. 2. Bronchial washings collected. Rashad Romero MD MR/JUNE / [id number]
== END 2020-11-13 12:02 | disposition home health service (06) | DRG 166 ==
LOC: HO.ED 13:26 → HO.EDOVER 14:19 → HO.S3 16:04
PROVIDERS: Hospitalist; Internal Medicine; Nurse Practitioner Acute Care; Admitting Provider Internal Medicine; Emergency Provider Emergency Medicine Emergency Medical Services; PCP Internal Medicine; Visit Provider Internal Medicine
PROC: 07B74ZX Excision of Thorax Lymphatic, Percutaneous Endoscopic Approach, Diagnostic (ICD-10-PCS; principal; 2020-11-12 12:30)
DX: C34.31 Malignant neoplasm of lower lobe, right bronchus or lung (principal); J18.9 Pneumonia, unspecified organism; E43 Unspecified severe protein-calorie malnutrition; J44.0 Chronic obstructive pulmonary disease with (acute) lower respiratory infection; E22.2 Syndrome of inappropriate secretion of antidiuretic hormone; Z68.1 Body mass index [BMI] 19.9 or less, adult; E78.5 Hyperlipidemia, unspecified; D50.9 Iron deficiency anemia, unspecified; F17.210 Nicotine dependence, cigarettes, uncomplicated; F06.4 Anxiety disorder due to known physiological condition; Z71.6 Tobacco abuse counseling; F32.9 Major depressive disorder, single episode, unspecified; Z20.822 Contact with and (suspected) exposure to COVID-19; Z79.82 Long term (current) use of aspirin; Z79.899 Other long term (current) drug therapy
CPT/HCPCS: 36415; 71045; 71260; 74177; 80048; 82378; 82607; 82728; 82746; 83540; 83605; 83615; 85025; 85027; 85045; 87040; 87071; 87205; 87635; 88112; 88172; 88173; 88177; 88305; 88341; 88342; 88360; 94640; 99285; J0171; J0295; J0696; J1100; J1650; J2250; J2370; J2405; J2916; J3010; Q9967

== ENCOUNTER 2020-11-25 08:50 | Outpatient (REF) | payer MEDICARE, MEDICAID, SELFPAY ==
--- NOTE | ~2020-11-25 | MR_ITS ---
EXAMINATION: MR BRAIN WITHOUT AND WITH CONTRAST CLINICAL INFORMATION: Staging study for lung cancer. COMPARISON: None. TECHNIQUE: Multiplanar, multisequence imaging of the brain was performed before and after the intravenous administration of 4.5 mL of Gadavist. Limited study with motion artifacts. FINDINGS: There is a heterogeneous ring-enhancing lesion in the high left frontal lobe measuring 1.8 x 1.7 x 2.2 cm in size. No central restricted diffusion evident. There is heterogeneous mixed hypointense and hyperintense signal within the lesion on the T2-weighted acquisition which may be due to some intralesional blood products. A considerable amount of vasogenic edema surrounds the lesion with mild compression of the central sulcus posteriorly. No diffusion abnormalities are identified to suggest an acute or subacute infarct. The ventricles are normal in size. No midline shift is seen. No additional brain parenchymal signal abnormality is noted. No extra-axial fluid collections are seen. The brainstem and cerebellum are normal. On postcontrast imaging, there is no abnormal parenchymal enhancement. No uncal or transtentorial herniation visible. The craniovertebral junction, marrow signal, and midline structures are normal. The major intracranial flow voids at the level of the [place] are preserved. The dural venous sinus flow voids are maintained. The mastoid air cells and paranasal sinuses are well aerated. MR/MR head/brain wo/w con IMPRESSION: Solitary 1.8 x 2.2 cm high left frontal lobe lesion with a moderate amount of surrounding vasogenic edema and [id number]-dpxernus regional mass effect, most suspicious for metastatic disease. No midline shift of structures or transtentorial herniation. Imaging findings reported to Dr. Tierney at 10:50 AM on 11/25/2020.
== END 2020-11-25 08:51 | disposition home or self-care (01) ==
LOC: HO.MRI 08:50
PROVIDERS: Visit Provider Internal Medicine
DX: C34.90 Malignant neoplasm of unspecified part of unspecified bronchus or lung (principal)
CPT/HCPCS: 70553; A9585

== ENCOUNTER 2020-11-26 11:04 | Outpatient (REF) | payer MEDICARE, MEDICAID, SELFPAY ==
--- NOTE | ~2020-11-26 | PE_ITS ---
EXAMINATION: Fluorine-18 FDG PET/CT Scan CLINICAL INDICATION: Initial treatment management. 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 PROCEDURE: 63 minutes following the intravenous administration of 15.5 mCi of fluorine 18 FDG, images from the base of the skull to the mid thighs were obtained using a combined PET/CT scanner with CT scan based attenuation correction. No oral contrast was administered. No intravenous contrast was administered. Transverse, coronal, sagittal, and volume reconstruction projections were obtained. The patient's blood glucose as determined by a finger stick, was 96 mg/dl immediately prior to injection. Total CT exam dose-length product 242.41 mGy-cm * These CT images were obtained using dose optimization techniques as appropriate, variously including the following: Automated exposure control * Adjustment of mA and/or kV according to patient size (this includes techniques or standardized protocols for targeted exams where dose is matched to indication/reason for exam; i.e. extremities or head) * Use of iterative reconstruction technique COMPARISON: No previous PET/CT scan is available for comparison. CT scan of the chest, abdomen, and pelvis dated 11/09/2020 is available for comparison. MRI of the head dated 11/25/2020 is also available for comparison. FINDINGS: (Slice numbers described in this report are numbered superiorly to inferiorly with slice #1 in the head) NECK AND VISUALIZED HEAD: No foci of abnormal FDG activity are noted. The distribution of FDG activity is physiological. There is no cervical lymphadenopathy. A high left frontal cerebral cortical lesion visualized on the 11/25/2020 MRI scan of the head is outside the [id number] of this PET CT scan and cannot be compared. THORAX: There is right lower lobe consolidation and associated volume loss. Within this there is a peripherally intense FDG accumulation with central photopenia showing SUVmax 15.9, slice 115/267. On the FDG PET images, this thoroughly FDG avid centrally FDG photopenic mass measures 8.3 x 6.7 cm in largest transverse dimensions and approximately 9.1 cm cephalocaudad. Superior and lateral to this, abutting the posterolateral pleura of the right lower lobe there is a second discrete FDG avid irregular mass showing SUVmax 7.1, slice 94/267. On the CT images this measures approximately 4.5 x 3.3 cm in largest transverse dimensions, and approximately 2.6 cm cephalocaudad. A thin spiculations extends from this into the previously described larger mass within the right lower lobe consolidation. There is a weakly FDG avid opacity abutting the lateral pleura of the left upper lobe, SUVmax 2.0, slice 111/267. On the CT images this opacity measures 1.3 x 0.7 cm in largest transverse dimensions. Inferior to this an irregular lingular pleural-based opacity shows very weak FDG activity, SUVmax 1.6. This opacity now appears smaller and less dense than on the 11/09/[address] scan when it measured 1.7 x 1.0 cm in largest transverse dimensions. No additional foci of abnormal FDG activity are present in the chest. A mildly FDG avid right pretracheal lymph node is present, SUVmax 2.4, slice 88/267. This abuts the ascending thoracic aorta and is difficult to measure on these CT images, but corresponds to the lymph node at this site measured on the 11/09/2020 CT scan when it measured 1.2 x 2.7 cm in size. There is no additional mediastinal, supraclavicular, or axillary lymphadenopathy. A small amount of pleural fluid is present on the right but this does not show abnormal FDG activity. There is no left-sided pleural fluid or pericardial fluid, or pneumothorax.. ABDOMEN AND PELVIS: There is very prominent diffuse large bowel FDG activity, with no corresponding abnormalities on these nondiagnostic CT images or on the 11/09/[address] scan. This is probably physiological. No foci of abnormal FDG activity are present in the abdomen or pelvis. The liver, gallbladder, spleen comment kidneys, adrenal glands and pancreas are unremarkable. Prostatic calcifications are present, but the prostate is not enlarged. The pelvic organs are otherwise unremarkable. MUSCULOSKELETAL: There are no foci of abnormal FDG activity in the osseous structures. There are degenerative changes in the spine but no suspicious sclerotic or lytic lesions are present. VASCULAR: Diffuse vascular calcifications including coronary are present. An aortobiiliac vascular graft is in place with no associated abnormal FDG activity. PET/PET CT fusion skull to thigh IMPRESSION: 1. A right lower lobe mass is present as described above and this is markedly FDG avid in its periphery with central FDG photopenia, this is consistent with the known diagnosis of lung cancer with the central photopenia most likely due to central necrosis within this mass. 2. A second more superior and lateral FDG avid right lower lobe lung mass is also likely malignant and this appears to be connected by a thin linear opacity to the larger previously described left more inferior lower lobe mass. This is also likely malignant. 3. Much smaller FDG avid opacities are present in the left lung as described above. The weak FDG activity associated with these is nonspecific and could be inflammatory or malignant in etiology. 4. An FDG avid right pretracheal enlarged lymph node is likely a metastasis. 5. No additional abnormalities suspicious for other metastatic or malignant lesions are noted. 6. Diffuse vascular calcifications including coronary.
== END 2020-11-26 11:05 | disposition home or self-care (01) ==
LOC: HO.PET 11:04
PROVIDERS: PCP Internal Medicine; Visit Provider Internal Medicine
DX: Z13.89 Encounter for screening for other disorder (principal)

== ENCOUNTER 2020-12-02 13:00 | Inpatient (IN) | payer MEDICARE, MEDICAID, SELFPAY ==
--- NOTE | ~2020-12-02 | CT_ITS ---
EXAMINATION: CT HEAD WITHOUT CONTRAST CLINICAL INFORMATION: Stage IV lung cancer. Headache. Rule out stroke COMPARISON: Brain MRI 11/25/2020 TECHNIQUE: Contiguous axial imaging was performed from the skull base to vertex without intravenous administration of contrast. This CT examination was performed using dose optimization techniques as appropriate, variously including the following: *Automated exposure control *Adjustment of mA and/or kV according to patient size (this includes techniques or standardized protocols for targeted exams where dose is matched to indication/reason for exam; i.e. extremities or head) *Use of iterative reconstruction technique DLP: 622 mGy-cm FINDINGS: There is no evidence of an extra-axial collection. There is no evidence of intra-axial or extra-axial hemorrhage. There is a 1.8 cm slightly high attenuation lesion in the left frontal parietal region and significant surrounding vasogenic edema. This likely represents metastatic disease. This appears unchanged from recent brain MRI. No other mass, mass effect or infarct is seen. Ventricles and extra-axial spaces are appropriate. There are bilateral nasal bone fractures that appear old. No acute fracture or bone lesion is seen. Visualized paranasal sinuses, mastoid air cells and middle ears are clear. CT/CT head/brain wo con IMPRESSION: 1.8 cm slightly high attenuation lesion in the left frontal parietal region and significant surrounding vasogenic edema. This likely represents metastatic disease and is unchanged from previous brain MRI 11/25/2020.
--- NOTE | ~2020-12-02 | XR_ITS ---
EXAMINATION: XR CHEST CLINICAL INFORMATION: Shortness of breath and cough. Rule out pneumonia. COMPARISON: Previous chest x-ray and chest CT scan 11/09/2020 TECHNIQUE: 2 views of the chest were obtained. FINDINGS: There is volume loss to the right hemithorax with shift of the central mediastinal structures to the right and elevation of the right hemidiaphragm. The lungs are well inflated. Mass/consolidation in the right lower lobe appears unchanged. There are nodular opacities in the more superior right lung, largest measuring 2 cm, which appear unchanged. The left lung is clear. No evidence of a new pneumonia is seen. The cardiac and mediastinal contours are stable. There is blunting at the right costophrenic angle questionable for a small pleural effusion. There is no left pleural effusion. There are degenerative changes of the spine. XR/XR chest 2V IMPRESSION: Stable volume loss to the right hemithorax and mass/consolidation of the right lower lobe. Stable more superior right lung nodular opacities.
[2020-12-02 13:37] VITALS: BP 121/76; BP 97/51; PULSE 78; RESP 20; TEMP 36.6; O2SAT 98; BMI 15.4
--- NOTE | 2020-12-02 14:16 | ECG_ITS ---
Test Reason : WEAKNESS Blood Pressure : / mmHG Vent. Rate : 081 BPM Atrial Rate : 081 BPM P-R Int : 130 ms QRS Dur : 088 ms QT Int : 358 ms P-R-T Axes : 081 071 059 degrees QTc Int : 415 ms Normal sinus rhythm Normal ECG No previous ECGs available Referred By: Theodore Herrera Electronically Signed By:BRIDGETTE RICHEY MD
--- NOTE | 2020-12-02 14:20 | ED_ITS ---
HPI - Weakness General Chief complaint: Weakness Stated complaint: FAILURE TO THRIVE PER EMS Time Seen by Provider: 12/02/20 13:21 Source: patient Mode of arrival: EMS Limitations: other ( patient has aphasia from stroke but is able answer questions) History of Present Illness HPI Narrative: 70-year-old male who presents emergency department for evaluation of weakness. According to EMS, they were called for medical assist 3 times this week and the patient was brought in for failure to thrive. The patient was diagnosed recently with stage IV lung cancer. The patient does have aphasia secondary to a stroke but his speech is comprehensible, he states that his sister called an ambulance to bring him to the hospital but the patient cannot give me any other details. Patient complains of weakness, chest pain and a productive cough . I did attempt to contact the patient's sister however the number in the chart was not receiving incoming calls . Patient was hospitalized on 11/13/2020 and I did review this record. At that hospitalization the patient was diagnosed with stage IV lung cancer and posto bstructive pneumonia secondary to lung mass. Was also found to have an iron deficient anemia but did not have a GI workup. Related Data Home Medications Medication Instructions Recorded Confirmed aspirin 81 mg PO DAILY 11/09/20 11/20/20 atorvastatin 1 tab PO DAILY 11/09/20 11/20/20 fluoxetine 1 cap PO QAM 11/09/20 11/20/20 risperidone 1 tab PO BEDTIME 11/09/20 11/20/20 Previous Rx's Medication Instructions Recorded ferrous sulfate 325 mg PO DAILY #30 tab 11/13/20 Shu-Sequels (iron-vit c) 1 tab PO DAILY #60 tab 11/20/20 albuterol sulfate 0.63 mg INHALATION Q4H #1 ml 11/20/20 Shower Chair #1 ea 11/25/20 commode #1 ea 11/25/20 dexamethasone 4 mg PO BID #30 tab 11/25/20 nebulizers #1 ea 11/25/20 Allergies Allergy/AdvReac Type Severity Reaction Status Date / Time No Known Allergies Allergy Verified 11/15/20 08:20 Review of Systems Review of Systems: Yes all other systems are reviewed and are negative Neurologic: Reports Abnormal speech present ( expressive aphasia) [facility] Past Medical History [facility] Narrative: past medical history: Stage IV lung cancer diagnosed 3 weeks prior, hyperlipidemia, tobacco abuse, postobstructive pneumonia , stroke with expressive aphasia. Social history: Patient lives at home with the sister, he continues to smoke cigarettes, he denies alcohol use or drug use. Medical History Depression HLD (hyperlipidemia) Family History Family History Mother Stroke Maternal Uncle CHF (congestive heart failure) Maternal Uncle CHF (congestive heart failure) Paternal Grandmother CHF (congestive heart failure) Sister CHF (congestive heart failure) COPD (chronic obstructive pulmonary disease) Father Alzheimer disease Paternal Uncle Alzheimer disease Family/Other Diabetes Social History Social History Household Members: Family Housing: House Do you presently have visiting nurse or other home services: No Alcohol intake: former Patient Tobacco Use Status: Former Tobacco user Quit Date: 11/14/2020 Cigarette Packs Per Day: 0.5 Second Hand Smoke Exposure: No Advance Directives: Yes Advance Directives on File: Yes Advance Directives Date on File: 11/09/20 service: No Current occupational status: retired Physical Exam Vital Signs: Vital Signs: Last Vital Signs Temp 97.8 F 12/02/20 13:37 Pulse 74 12/02/20 16:41 Resp 16 12/02/20 16:41 BP 111/68 12/02/20 16:41 Pulse Ox 97 12/02/20 16:41 Body Mass Index 15.4 Const: Other: elderly, cachectic, chronically ill-appearing male, patient has difficulty speaking secondary to expressive aphasia but is speech is comprehensible knee does answer questions appropriately. He lacks insight as to why he is here in the emergency departm HENMT: Head: Yes normal to inspection, Yes normocephalic and Yes atraumatic Ears: external ears normal General nose exam: Normal external nose present Face and sinus: Yes normal facial exam Mouth: Normal oral and palatal mucosa present Throat: Yes posterior oropharynx normal Eyes: Periorbital: periorbital findings normal Eyelids: Yes eyelids normal Conjunctivae: conjunctivae normal Sclerae: sclerae normal Corneas: corneas normal Pupils: Equal, round and reactive pupils present Direct Ophthalmoscopy: normal light reflex Neck: Neck: Yes full ROM, Yes no lymphadenopathy, Yes no meningeal signs, Yes trachea midline and Yes supple Chest: Chest palpation & inspection: normal inspection of the chest and normal palpation of entire chest wall Resp: Other: Rales and rhonchi in the right anterior and posterior chest, di minished breath sounds on the right compared to the left, no wheezing noted Cardio: Rate: regular rate Rhythm: regular rhythm Heart sounds: S1 normal heart sound present, S2 normal heart sound present and no murmurs GI: Inspection: Yes normal to inspection Palpation (GI): Soft to palpation, nontender, no guarding, not rigid and No hepatosplenomegaly present : General: Yes no CVA tenderness Back/Spine/Pelvis: Back: no CVA tenderness Cervical Spine: normal cervical lordosis Thoracic/Lumbar Spine: thoracic and lumbar spine normal to inspection Skin: Lesions: no lesions Rashes: no rashes Wounds: no wounds Neuro: General: no meningeal signs Cranial nerves: Yes Equal, round and reactive pupils present and Yes Other cranial nerve findings present ( right facial droop) Cognition (Neuro): normal cognition Speech: Abnormal speech present ( expressive aphasia) Motor exam (neuro): 5/5 motor strength present throughout Extrem: General: Yes normal to inspection and Yes full ROM Psych: Appearance: well kempt Mental Status: mental status grossly normal Speech and movement: Normal speech and movement present Affect: normal affect Course Course Course Narrative: 70-year-old male sent to emergency department for evaluation of failure to thrive at home, the patient was recently diagnosed with stage IV lung cancer. Patient lacks insight as to why seen in the emergency department and I was unable to contact family member to discuss why he was sent to the emergency department. According to EMS, they and to the patient's house multiple times for medical assistance. physical examination revealed an elderly, cachectic, chronically ill-appearing male. Lung exam did reveal right- sided rhonchi and rales. I will obtain a laboratory evaluation, chest x-ray and CT scan of the head. 1627:Patient's laboratory evaluation [place] [address] patient is on dexamethasone and this could represent steroid use versus infection. Patient's potassium was s elevated at 5.3. Patient's calcium is elevated at 12.2. chest x-ray did reveal a right-sided mass with volume loss possible consolidation which is unchanged from the previous chest x-ray. CT scan of the brain did reveal a 1.8 cm right frontal parietal lobe mass which was seen on MRI on 11/25/2020. patient was ordered to get dexamethasone 10 mg IV. Patient's lactic acid was elevated 2.1. At this time, I am concerned that the patient's weakness may be secondary to his hypercalcemia or an infectious process such as a postobstructive pneumonia. The patient meets SIRS criteria but does not meet severe sepsis criteria. The patient will be treated with Zosyn 4.5 g IV. The patient's hypercalcemia will be treated with 3 L of normal saline and he will then need a repeat calcium. I will discuss the patient's presentation with the covering hospitalist. 1700 : I did discuss the patient's presentation with and the patient will be admitted to the hospital service. The patient will be seen by the night hospitalist. MDM - Weakness Lab Data Result diagrams: 12/02/20 14:56 12/02/20 14:56 Labs: Lab Results 12/02/20 12/02/20 12/02/20 Range/Units 14:56 14:56 14:56 WBC 21.6 H (4.8-10.8) X10*3/uL RBC 4.81 D (4.60-5.80) X10*6/uL Hgb 10.3 L (14.0-18.0) g/dl Hct 34.0 L D (42-52) % MCV 70.7 L (80-98) fL MCH 21.4 L (27.0-33.0) pg MCHC 30.3 L (31.0-36.0) g/dl RDW 20.7 H (11.0-16.0) % Plt Count 437 H (160-400) X10*3/uL MPV 8.8 L (9.4-12.4) fL Immature Gran % (Auto) 0.6 H (0.0-0.4) % Neut % (Auto) 90.0 H (45-73) % Lymph % (Auto) 4.7 L (20-40) % [place] % (Auto) 4.6 (2-11) % Eos % (Auto) 0.0 (0-4) % Baso % (Auto) 0.1 (0-2) % Lymph # (Auto) 1.0 L (1.2-4.9) X10*3/uL [place] # (Auto) 1.0 (0.1-1.2) X10*3/uL Eos # (Auto) 0.0 (0.0-0.4) X10*3/uL Baso # (Auto) 0.0 (0.0-0.2) X10*3/uL Abs Immat Gran (auto) 0.13 H (0.00-0.03) X10*3/uL Absolute Neuts (auto) 19.4 H (2.0-8.3) X10*3/uL Absolute Nucleated RBC 0.000 (0.0-0.012) X10*3/uL Nucleated RBC % (auto) 0.0 (0.0-0.2) /100WBC PT 14.3 H (10.8-13.0) SEC INR 1.2 H (0.9-1.1) APTT 25.6 (24.1-38.0) SEC Sodium 133 L (135-145) mmol/L Potassium 5.3 H D (3.3-5.1) mmol/L Chloride 95 L (96-108) mmol/L Carbon Dioxide 28 (22-29) mmol/L Anion Gap 15 (12-20) BUN 17 H D (9-16) mg/dL Creatinine 0.66 (0.5-1.4) mg/dL Estim Creat Clear Calc 69.6 Estimated GFR > 60 Random Glucose 96 (60-115) mg/dL Lactic Acid (0.5-2.0) mmol/L Calcium 12.2 H D (8.4-10.2) mg/dL Total Bilirubin < 0.2 (0.0-1.0) mg/dL AST 21 (5-37) U/L ALT 15 (0-40) U/L Alkaline Phosphatase 289 H (39-117) U/L Troponin I High Sens (<3.5-35.0) ng/L B-Natriuretic Peptide (<100) pg/mL Total Protein 7.1 (6.5-8.0) g/dL Albumin 3.0 L (3.5-5.0) g/dL Lipase 7 L (8-78) U/L Urine Color Urine Appearance Urine pH (5.0-8.0) Ur Specific [place] (1.005-1.025) Urine Protein (NEG-TRACE) MG/DL Urine Glucose (UA) (NEG) MG/DL Urine Ketones (NEG) MG/DL Urine Blood (NEG) Urine Nitrite (NEG) Ur Leukocyte Esterase (NEG) COVID-19 ([facility]A) (Negative) COVID-19 Clin Com 12/02/20 12/02/20 12/02/20 Range/Units 14:56 14:56 15:11 WBC (4.8-10.8) X10*3/uL RBC (4.60-5.80) X10*6/uL Hgb (14.0-18.0) g/dl Hct (42-52) % MCV (80-98) fL MCH (27.0-33.0) pg MCHC (31.0-36.0) g/dl RDW (11.0-16.0) % Plt Count (160-400) X10*3/uL MPV (9.4-12.4) fL Immature Gran % (Auto) (0.0-0.4) % Neut % (Auto) (45-73) % Lymph % (Auto) (20-40) % [place] % (Auto) (2-11) % Eos % (Auto) (0-4) % Baso % (Auto) (0-2) % Lymph # (Auto) (1.2-4.9) X10*3/uL [place] # (Auto) (0.1-1.2) X10*3/uL Eos # (Auto) (0.0-0.4) X10*3/uL Baso # (Auto) (0.0-0.2) X10*3/uL Abs Immat Gran (auto) (0.00-0.03) X10*3/uL Absolute Neuts (auto) (2.0-8.3) X10*3/uL Absolute Nucleated RBC (0.0-0.012) X10*3/uL Nucleated RBC % (auto) (0.0-0.2) /100WBC PT (10.8-13.0) SEC INR (0.9-1.1) APTT (24.1-38.0) SEC Sodium (135-145) mmol/L Potassium (3.3-5.1) mmol/L Chloride (96-108) mmol/L Carbon Dioxide (22-29) mmol/L Anion Gap (12-20) BUN (9-16) mg/dL Creatinine (0.5-1.4) mg/dL Estim Creat Clear Calc Estimated GFR Random Glucose (60-115) mg/dL Lactic Acid 2.1 H* (0.5-2.0) mmol/L Calcium (8.4-10.2) mg/dL Total Bilirubin (0.0-1.0) mg/dL AST (5-37) U/L ALT (0-40) U/L Alkaline Phosphatase (39-117) U/L Troponin I High Sens < 3.5 (<3.5-35.0) ng/L B-Natriuretic Peptide 35 (<100) pg/mL Total Protein (6.5-8.0) g/dL Albumin (3.5-5.0) g/dL Lipase (8-78) U/L Urine Color Urine Appearance Urine pH (5.0-8.0) Ur Specific [place] (1.005-1.025) Urine Protein (NEG-TRACE) MG/DL Urine Glucose (UA) (NEG) MG/DL Urine Ketones (NEG) MG/DL Urine Blood (NEG) Urine Nitrite (NEG) Ur Leukocyte Esterase (NEG) COVID-19 ([facility]DRA) Negative (Negative) COVID-19 Clin Com See Note 12/02/20 Range/Units 16:00 WBC (4.8-10.8) X10*3/uL RBC (4.60-5.80) X10*6/uL Hgb (14.0-18.0) g/dl Hct (42-52) % MCV (80-98) fL MCH (27.0-33.0) pg MCHC (31.0-36.0) g/dl RDW (11.0-16.0) % Plt Count (160-400) X10*3/uL MPV (9.4-12.4) fL Immature Gran % (Auto) (0.0-0.4) % Neut % (Auto) (45-73) % Lymph % (Auto) (20-40) % [place] % (Auto) (2-11) % Eos % (Auto) (0-4) % Baso % (Auto) (0-2) % Lymph # (Auto) (1.2-4.9) X10*3/uL [place] # (Auto) (0.1-1.2) X10*3/uL Eos # (Auto) (0.0-0.4) X10*3/uL Baso # (Auto) (0.0-0.2) X10*3/uL Abs Immat Gran (auto) (0.00-0.03) X10*3/uL Absolute Neuts (auto) (2.0-8.3) X10*3/uL Absolute Nucleated RBC (0.0-0.012) X10*3/uL Nucleated RBC % (auto) (0.0-0.2) /100WBC PT (10.8-13.0) SEC INR (0.9-1.1) APTT (24.1-38.0) SEC Sodium (135-145) mmol/L Potassium (3.3-5.1) mmol/L Chloride (96-108) mmol/L Carbon Dioxide (22-29) mmol/L Anion Gap (12-20) BUN (9-16) mg/dL Creatinine (0.5-1.4) mg/dL Estim Creat Clear Calc Estimated GFR Random Glucose (60-115) mg/dL Lactic Acid (0.5-2.0) mmol/L Calcium (8.4-10.2) mg/dL Total Bilirubin (0.0-1.0) mg/dL AST (5-37) U/L ALT (0-40) U/L Alkaline Phosphatase (39-117) U/L Troponin I High Sens (<3.5-35.0) ng/L B-Natriuretic Peptide (<100) pg/mL Total Protein (6.5-8.0) g/dL Albumin (3.5-5.0) g/dL Lipase (8-78) U/L Urine Color YELLOW Urine Appearance HAZY Urine pH 6.0 (5.0-8.0) Ur Specific [place] 1.010 (1.005-1.025) Urine Protein NEG (NEG-TRACE) MG/DL Urine Glucose (UA) NEG (NEG) MG/DL Urine Ketones NEG (NEG) MG/DL Urine Blood NEG (NEG) Urine Nitrite NEG (NEG) Ur Leukocyte Esterase NEG (NEG) COVID-19 ([facility]A) (Negative) COVID-19 Clin Com Critical Care Time Critical Care Time Critical Care Time: Yes Total Critical Care Time: 35 Attestation: Critical Care: The patient was critically ill with a high probability of imminent or life threatening deterioration. I spent greater than 30 minutes of discontinuous time evaluating the patient,delivering critical care at the bedside, discussing and evaluating pertinent data with consultants. Critical care time does not include time spent performing separately billable procedures or teaching. Total time spent performing critical care was 35 minutes. Discharge Plan Discharge Clinical Impression: Postobstructive pneumonia, Hypercalcemia, Adult failure to thrive Prescriptions: No Action Shu-Sequels (iron-vit c) 200 mg (65 mg iron)-25 mg Tablet Extended Release 1 tab PO DAILY Qty: 60 RF: 3 albuterol sulfate 0.63 mg/3 mL Solution For Nebulization 0.63 mg INHALATION Q4H Qty: 1 RF: 3 dexamethasone 4 mg Tablet 4 mg PO BID Qty: 30 RF: 1 (DME) commode Kit Qty: 1 RF: 0 (DME) Shower Chair Misc Qty: 1 RF: 0 (DME) nebulizers Misc Qty: 1 RF: 0 aspirin 81 mg Tablet 81 mg PO DAILY RF: 0 atorvastatin 40 mg tablet 1 tab PO DAILY RF: 0 fluoxetine 20 mg capsule 1 cap PO QAM RF: 0 risperidone 1 mg tablet 1 tab PO BEDTIME RF: 0 ferrous sulfate 325 mg (65 mg iron) tablet 325 mg PO DAILY Qty: 30 RF: 0
[2020-12-02 15:03] LABS: MANUAL DIFF FLAG NO
[2020-12-02 15:06] LABS: Basophils Percent Auto 0.1 % (0-2); Hemoglobin 10.3 g/dl (14.0-18.0); Imm Gran Abs Auto 0.13 X10*3/uL (0.00-0.03); Imm Gran Pct Auto 0.6 % (0.0-0.4); Lymphocytes Percent Auto 4.7 % (20-40); Mean Corpuscular HGB Conc 30.3 g/dl (31.0-36.0); Mean Corpuscular Hemoglobin 21.4 pg (27.0-33.0); Mean Corpuscular Volume 70.7 fL (80-98); Mean Platelet Volume 8.8 fL (9.4-12.4); Monocytes Percent Auto 4.6 % (2-11); Neutrophils Absolute Auto 19.4 X10*3/uL (2.0-8.3); Platelet Count 437 X10*3/uL (160-400); Red Blood Count 4.81 X10*6/uL (4.60-5.80); Red Cell Distribution Width 20.7 % (11.0-16.0); White Blood Count 21.6 X10*3/uL (4.8-10.8)
[2020-12-02] MEDS: 0.9 % Sodium Chloride 1,000 ML 999 ML IV ×3 (15:15→18:00)
[2020-12-02 15:16] VITALS: BP 120/78; PULSE 78; RESP 20; O2SAT 98
[2020-12-02 15:17] LABS: INTERNATIONAL NORM RATIO 1.2 (0.9-1.1); Prothrombin Time 14.3 SEC (10.8-13.0)
[2020-12-02 15:20] LABS: Partial Thromboplastin Time 25.6 SEC (24.1-38.0)
[2020-12-02 15:38] LABS: Lactic Acid 2.1 mmol/L (0.5-2.0)
[2020-12-02 15:39] LABS: B Type Natriuretic Peptide 35 pg/mL (<100); Troponin-I High Sensitivity < 3.5 ng/L (<3.5-35.0)
[2020-12-02 15:45] LABS: Alanine Aminotransferase 15 U/L (0-40); Alkaline Phosphatase 289 U/L (39-117); Anion Gap 15 (12-20); Aspartate Amino Transferase 21 U/L (5-37); Bilirubin Total < 0.2 mg/dL (0.0-1.0); Blood Urea Nitrogen 17 mg/dL (9-16); Calcium 12.2 mg/dL (8.4-10.2); Carbon Dioxide 28 mmol/L (22-29); Chloride 95 mmol/L (96-108); Creatinine Clr Calc Pharmacy 69.6; Estimated Glomerular Filt Rate > 60; Glucose Random 96 mg/dL (60-115); Lipase 7 U/L (8-78); Potassium 5.3 mmol/L (3.3-5.1); Sodium 133 mmol/L (135-145); Total Protein 7.1 g/dL (6.5-8.0)
[2020-12-02 15:53] LABS: COVID-19 Test Negative (Negative); IDNOW Serial# 9DD0AD1C
[2020-12-02 16:23] LABS: Glucose Urine UA NEG (NEG); Leukocyte Esterase Urine NEG (NEG); Nitrite Urine NEG (NEG); Urine Blood NEG (NEG); Urine Ketones NEG (NEG); Urine Protein NEG (NEG-TRACE)
[2020-12-02] MEDS: Piperacillin Sodium/Tazobactam 4.5 GM in 0.9 % Sodium Chloride 100 ML IV (16:37)
[2020-12-02 16:41] VITALS: BP 111/68; PULSE 74; RESP 16; O2SAT 97
[2020-12-02 16:45] LABS: Appearance Urine HAZY; Color Urine YELLOW
[2020-12-02 17:02] LABS: Reflex Lactate? Lactic Acid Added
[2020-12-02 18:00] VITALS: BP 112/65; PULSE 71; RESP 18; TEMP 36.3; O2SAT 92
[2020-12-02] MEDS: dexAMETHasone sod phosphate 10 MG/ML VIAL IVPUSH (18:01)
[2020-12-02 19:22] LABS: ~Lactic Acid-LAB USE ONLY 1.2 mmol/L (0.5-2.0)
[2020-12-02 20:00] VITALS: BP 106/64; PULSE 76; RESP 16; TEMP 36.4; O2SAT 95
[2020-12-02 20:13] LABS: Calcium 11.1 mg/dL (8.4-10.2)
[2020-12-02 22:00] VITALS: BP 97/58; PULSE 64; RESP 16; TEMP 36.5; O2SAT 94
--- NOTE | 2020-12-02 22:27 | PHA.MEDREC ---
Pharmacy Consult ? Medication Reconciliation Pharmacy has completed the medication reconciliation.
[2020-12-03] VITALS (7 sets, daily range): BP systolic 113–139; BP diastolic 55–70; PULSE 65–79; RESP 15–20; TEMP 36–36.8; O2SAT 90–97; BMI 15.4
[2020-12-03] MEDS: 0.9 % Sodium Chloride Flush 3 ML SYRINGE IVFLUSH (00:13)
--- NOTE | 2020-12-03 00:36 | PC.NURSE ---
nurse to nurse report given to Joan LORA
[2020-12-03] MEDS: vancomycin HCL 750 MG in 0.9 % Sodium Chloride 250 ML 265 MG IV (02:00)
[2020-12-03] MEDS: 0.9 % Sodium Chloride 1,000 ML 100 ML IVCONT ×2 (02:00→14:53)
[2020-12-03] MEDS: Heparin Sodium,Porcine 5,000 UNIT/ML VIAL 5000 UNIT SUBCUT ×3 (02:00→20:39)
--- NOTE | 2020-12-03 06:35 | P.HPHOSP_ITS ---
History of Present Illness Date of Service: 12/02/20 Chief Complaint: weakness 70-year-old male with past medical history of depression, recently diagnosed lung cancer, discharge from the hospital on November 13 after being treated for postobstructive pneumonia as well as CVA, HLD, COPD, who presents to the [facility] with weakness. patient has history of CVA with some speech difficulty but comprehensible, he reports that his sister called the ambulance to bring him to the hospital because of weakness. According to sister as well as EMS they were called to the house about 3 times this week due to patient needing assistance. Patient noted to have a cough when asked about any said he started having a cough about 2 days, with shortness of breath, sputum production, fever and chills, diarrhea 1-2 episodes daily all for the past 2 days. Does not know how high his temperature was. Patient reports low appetite and low oral intake. Patient denies any chest pain, no abdominal pain, no urinary symptoms and no lower extremity edema. On arrival patient's vitals were significant for temp of 97.8?, heart rate of 78, respiratory rate of 20, blood pressure 121/76, satting 98% on room air vitals were significant for WBC count of 21.6 ( patient on dexamethasone) hemoglobin of 10.3 which is higher than his baseline, hematocrit of 34, PT of 14.3, INR of 1.2, sodium of 133, potassium 5.3, lactic acid of 2.1, calcium level of 12.2, alk-phos of 289, urine negative, COVID-[address] shows 1.8 cm slightly high attenuation lesion in the left frontal parietal region and significant surrounding vasogenic edema which likely represents metastatic disease and is unchanged from previous brain MRI of chest x-ray shows stable volume loss to the right hemithorax and mass consolidation of the right lower lobe. patient will be admitted for further management Review of Systems Review of Systems: Yes all other systems are reviewed and are negative COUNT INCLUDES THE [facility] Medical History (Updated 12/03/20 @ 06:46 by Prieto Hurst MD) COPD (chronic obstructive pulmonary disease) Depression HLD (hyperlipidemia) Iron deficiency anemia due to chronic blood loss Lung mass Family History Mother Stroke Maternal Uncle CHF (congestive heart failure) Maternal Uncle CHF (congestive heart failure) Paternal Grandmother CHF (congestive heart failure) Sister CHF (congestive heart failure) COPD (chronic obstructive pulmonary disease) Father Alzheimer disease Paternal Uncle Alzheimer disease Family/Other Diabetes Social History Household Members: Family Household Members Other:: Sister Housing: House Do you presently have visiting nurse or other home services: Yes Alcohol intake: former Patient Tobacco Use Status: Former Tobacco user Quit Date: 11/14/2020 Cigarette Packs Per Day: 0.5 Second Hand Smoke Exposure: No Use of substances other than those prescribed or required for medical reasons: No Have you been hit, kicked, punched, or otherwise hurt by someone within the past year? If so, by whom?: No Do you feel safe in your current relationship?: No Current Relationship Is there a partner from a previous relationship who is making you feel unsafe now?: No Are you made to feel afraid or neglected: No Advance Directives: Yes Advance Directives on File: Yes Advance Directives Date on File: 11/09/20 Do you have thoughts of harming others: None Do you have a plan to hurt others: No Plan Recently lost weight without trying: Yes How much weight loss: 34pounds or more Eating poorly because of decreased appetite: Yes Nutrition screen score: 7 Nutrition Risks: Poor intake 0-25% >4 days Poor oral hygiene: No service: No Current occupational status: retired [employer] Allergies Allergy/AdvReac Type Severity Reaction Status Date / Time No Known Allergies Allergy Verified 11/15/20 08:20 Active Medications: Current Medications Generic Name Dose Route Start Last Admin Trade Name Freq PRN Reason Stop Dose Admin Acetaminophen 650 mg 12/02/20 23:33 Acetaminophen 325 Mg Tablet PO Q6H PRN Pain, Mild (Pain Scale 1-3) Aspirin 81 mg 12/03/20 09:00 Aspirin Enteric Coated 81 Mg Tablet.Dr PO DAILY [facility] Atorvastatin Calcium 40 mg 12/03/20 09:00 Atorvastatin Calcium 40 Mg Tablet PO DAILY [facility] Dexamethasone 4 mg 12/03/20 09:00 Dexamethasone 4 Mg Tablet PO BID [facility] Docusate Sodium 100 mg 12/02/20 23:33 Docusate Sodium 100 Mg Capsule PO DAILY PRN Constipation Fluoxetine HCl 20 mg 12/03/20 09:00 Fluoxetine Hcl 20 Mg Capsule PO DAILY DAIN Heparin Sodium (Porcine) 5,000 unit 12/02/20 23:33 12/03/20 02:00 Heparin Sodium,Porcine 5,000 Unit/Ml Vial SUBCUT 5,000 unit BID DAIN Administration Sodium Chloride 1,000 mls @ 100 mls/hr 12/02/20 23:33 12/03/20 02:00 Ns IVCONT 100 mls/hr .Q10H DAIN Administration Ondansetron HCl 4 mg 12/02/20 23:33 Ondansetron Hcl 4 Mg/2 Ml Vial IVPUSH Q8H PRN Nausea and Vomiting Pharmacy Consult 1 each 12/02/20 23:33 Consult Rx Vancomycin Dosing MISCELLANE DAILY PRN Consult order Risperidone 1 mg 12/03/20 21:00 Risperidone 1 Mg Tablet PO BEDTIME DAIN Sodium Chloride 3 ml 12/03/20 00:00 12/03/20 00:13 0.9 % Sodium Chloride Flush 3 Ml Syringe IVFLUSH 3 ml QSHIFT DAIN Administration Home Medications Medication Instructions Recorded Confirmed Last Taken Type atorvastatin 1 tab PO DAILY 11/09/20 12/02/20 11/09/20 07:00 History fluoxetine 1 cap PO QAM 11/09/20 12/02/20 11/08/20 22:00 History risperidone 1 tab PO BEDTIME 11/09/20 12/02/20 11/08/20 22:00 History aspirin 1 tab PO DAILY 12/02/20 12/02/20 Unknown History Physical Exam Vital Signs and Narrative: Vital Signs: Last Vital Signs Temp 97.7 F 12/03/20 03:35 Pulse 65 12/03/20 03:35 Resp 18 12/03/20 03:35 BP 131/61 12/03/20 03:35 Pulse Ox 90 L 12/03/20 03:35 Body Mass Index 15.4 Const: Other: cachectic ill looking patient appears dehydrated General: cooperative and no acute distress Orientation/consciousness: patient oriented x3 Eyes: General: appearance normal, both eyes and all related structures Resp: Effort & Inspection: normal respiratory effort and able to speak in complete sentences Cardio: Rate: regular rate Rhythm: regular rhythm GI: Palpation (GI): Soft to palpation Auscultation: normal bowel sounds Skin: General skin exam: no rashes or lesions noted Neuro: General: patient oriented x3 Cognition (Neuro): normal cognition Extrem: General: Yes normal to inspection and Yes no pedal edema Results Labs CBC and Chem 7: 12/02/20 14:56 12/02/20 14:56 Labs: Laboratory Results - last 24 hr 12/02/20 12/02/20 12/02/20 14:56 14:56 14:56 MCV 70.7 L MCH 21.4 L MCHC 30.3 L RDW 20.7 H Plt Count 437 H MPV 8.8 L Immature Gran % (Auto) 0.6 H Neut % (Auto) 90.0 H Lymph % (Auto) 4.7 L [place] % (Auto) 4.6 Eos % (Auto) 0.0 Baso % (Auto) 0.1 Lymph # (Auto) 1.0 L [place] # (Auto) 1.0 Eos # (Auto) 0.0 Baso # (Auto) 0.0 Abs Immat Gran (auto) 0.13 H Absolute Neuts (auto) 19.4 H Absolute Nucleated RBC 0.000 Nucleated RBC % (auto) 0.0 PT 14.3 H INR 1.2 H APTT 25.6 Anion Gap 15 Estim Creat Clear Calc 69.6 Estimated GFR > 60 Random Glucose 96 Lactic Acid Lactic Acid Fup @ 2Hr Calcium 12.2 H D Total Bilirubin < 0.2 AST 21 ALT 15 Alkaline Phosphatase 289 H Troponin I High Sens B-Natriuretic Peptide Total Protein 7.1 Albumin 3.0 L Lipase 7 L Urine Color Urine Appearance Urine pH Ur Specific [place] Urine Protein Urine Glucose (UA) Urine Ketones Urine Blood Urine Nitrite Ur Leukocyte Esterase COVID-19 ([facility]) COVID-19 Clin Com 12/02/20 12/02/20 12/02/20 14:56 14:56 15:11 MCV MCH MCHC RDW Plt Count MPV Immature Gran % (Auto) Neut % (Auto) Lymph % (Auto) [place] % (Auto) Eos % (Auto) Baso % (Auto) Lymph # (Auto) [place] # (Auto) Eos # (Auto) Baso # (Auto) Abs Immat Gran (auto) Absolute Neuts (auto) Absolute Nucleated RBC Nucleated RBC % (auto) PT INR APTT Anion Gap Estim Creat Clear Calc Estimated GFR Random Glucose Lactic Acid 2.1 H* Lactic Acid Fup @ 2Hr Calcium Total Bilirubin AST ALT Alkaline Phosphatase Troponin I High Sens < 3.5 B-Natriuretic Peptide 35 Total Protein Albumin Lipase Urine Color Urine Appearance Urine pH Ur Specific [place] Urine Protein Urine Glucose (UA) Urine Ketones Urine Blood Urine Nitrite Ur Leukocyte Esterase COVID-19 ([facility]) Negative COVID-19 Clin Com See Note 12/02/20 12/02/20 12/02/20 16:00 18:59 19:35 MCV MCH MCHC RDW Plt Count MPV Immature Gran % (Auto) Neut % (Auto) Lymph % (Auto) [place] % (Auto) Eos % (Auto) Baso % (Auto) Lymph # (Auto) [place] # (Auto) Eos # (Auto) Baso # (Auto) Abs Immat Gran (auto) Absolute Neuts (auto) Absolute Nucleated RBC Nucleated RBC % (auto) PT INR APTT Anion Gap Estim Creat Clear Calc Estimated GFR Random Glucose Lactic Acid Lactic Acid Fup @ 2Hr 1.2 Calcium 11.1 H D Total Bilirubin AST ALT Alkaline Phosphatase Troponin I High Sens B-Natriuretic Peptide Total Protein Albumin Lipase Urine Color YELLOW Urine Appearance HAZY Urine pH 6.0 Ur Specific [place] 1.010 Urine Protein NEG Urine Glucose (UA) NEG Urine Ketones NEG Urine Blood NEG Urine Nitrite NEG Ur Leukocyte Esterase NEG COVID-19 ([facility]) COVID-19 Clin Com Imaging Radiologist's Impressions: Impressions Chest X-Ray 12/02/20 14:16 IMPRESSION: Stable volume loss to the right hemithorax and mass/consolidation of the right lower lobe. Stable more superior right lung nodular opacities. Head CT 12/02/20 14:29 IMPRESSION: 1.8 cm slightly high attenuation lesion in the left frontal parietal region and significant surrounding vasogenic edema. This likely represents metastatic disease and is unchanged from previous brain MRI 11/25/2020. Assessment and Plan (1) Hyperkalemia: Status: Acute (2) Lactic acidosis: Status: Acute (3) Leukocytosis: Status: Acute (4) Postobstructive pneumonia: Status: Acute (5) Hypercalcemia: Status: Acute (6) Adult failure to thrive: Status: Acute (7) Severe protein-calorie malnutrition: Status: Acute (8) Malignant neoplasm metastatic to brain: Status: Acute this is a 70-year-old male with history of recently diagnosed lung cancer who presents to the hospital with weakness found to have multiple abnormalities as below # postobstructive pneumonia - patient reports cough, sputum production, dyspnea - has leukocytosis which may also be secondary to dexamethasone - at this time will treat him for hospital-acquired pneumonia given his recent admission to the hospital - follow cultures # hyperkalemia - most likely secondary to dehydration - no EKG changes - will start him IV fluids - follow BMP # hypercalcemia - secondary to have dehydration as well as possible bone Mets as alk phos also elevated - start him IV fluids - follow calcium a # lactic acidosis - possibly secondary to infection - improved post IV fluids # leukocytosis - most likely multifactorial in the setting of dexamethasone as well as acute infection - antibiotics as above - follow CBC # adult failure to thrive /severe protein calorie malnutrition - nutrition consult placed - may need placement prior to discharge home # malignant neoplasm metastatic to the brain - CT has show significant edema surrounding the mass - will start him on IV dexamethasone - consult Hematology-Oncology DVT prophylaxis: Heparin subQ Quality Stroke Does the patient have a stroke diagnosis?: No VTE Prior VTE?: No VTE Risk Level:: Medical - moderate - high VTE Device Contraindication: Treatment Not Indicated VTE Drug Contraindication: N/A - Med Ordered
[2020-12-03 06:39] LABS: Basophils Absolute Auto 0.1 X10*3/uL (0.0-0.2); Basophils Percent Auto 0.2 % (0-2); Hematocrit 31.8 % (42-52); Hemoglobin 9.6 g/dl (14.0-18.0); Imm Gran Abs Auto 0.17 X10*3/uL (0.00-0.03); Imm Gran Pct Auto 0.6 % (0.0-0.4); Lymphocytes Percent Auto 3.7 % (20-40); MANUAL DIFF FLAG SCAN; Mean Corpuscular HGB Conc 30.2 g/dl (31.0-36.0); Mean Corpuscular Hemoglobin 21.4 pg (27.0-33.0); Mean Platelet Volume 9.4 fL (9.4-12.4); Monocytes Absolute Auto 1.2 X10*3/uL (0.1-1.2); Monocytes Percent Auto 4.3 % (2-11); Neutrophils Absolute Auto 24.9 X10*3/uL (2.0-8.3); Neutrophils Percent Auto 91.2 % (45-73); Platelet Count 388 X10*3/uL (160-400); Red Blood Count 4.48 X10*6/uL (4.60-5.80); Red Cell Distribution Width 20.6 % (11.0-16.0); SCAN SMEAR FLAG 1; White Blood Count 27.3 X10*3/uL (4.8-10.8)
[2020-12-03 06:41] LABS: Anion Gap 14 (12-20); Blood Urea Nitrogen 15 mg/dL (9-16); Calcium 10.6 mg/dL (8.4-10.2); Carbon Dioxide 24 mmol/L (22-29); Chloride 105 mmol/L (96-108); Creatinine Clr Calc Pharmacy 74.1; Estimated Glomerular Filt Rate > 60; Glucose Random 98 mg/dL (60-115); Potassium 4.5 mmol/L (3.3-5.1); Sodium 138 mmol/L (135-145)
[2020-12-03 07:27] LABS: SLIDE REVIEW VERIFIED
[2020-12-03] MEDS: Atorvastatin Calcium 40 MG TABLET PO (08:11)
[2020-12-03] MEDS: Aspirin Enteric Coated 81 MG TABLET.DR PO (08:11)
[2020-12-03] MEDS: FLUoxetine HCl 20 MG CAPSULE PO (08:12)
[2020-12-03] MEDS: dexAMETHasone sod phosphate 4 MG/ML VIAL IVPUSH ×3 (08:16→18:10)
--- NOTE | 2020-12-03 08:54 | MHC.CM.PN ---
CM met with Patient at bedside and addressed IMM, providing Patient with the original and placing a copy on the chart. Patient was able to respond to questions but appeared to tire easily and at his request, CM spoke with Sister/HCP/[place] @ [phone]. Patient lives in a house with [place], who can no longer care for Patient in the home.STR into likely LTC is the goal for dc and CM has initiated and will follow for dc planning. PCP is Dr. Michael Hudson. HCP is on file.
[2020-12-03] MEDS: Pamidronate Disodium 60 MG in 0.9 % Sodium Chloride 250 ML 130 MG IV (09:32)
--- NOTE | 2020-12-03 09:55 | P.CNHO_ITS ---
Subjective - Subjective Chief complaint: Generalized weakness Patient: known to practice within the last 3 years Consult date: 12/03/20 Primary Care Provider: Michael Cervantes MD HPI - Consult Narrative Reason for consult: Metastatic lung cancer Narrative: Zan Pinto is a 70 year old male with recently diagnosed metastatic lung cancer who is currently admitted with complaints of generalized weakness and failure to thrive. He has history of longstanding depression and is a poor historian. He reports generalized weakness, anorexia, weight loss and inability to take care of himself. His sister brought him from [place] where he was living previously, however, his sister is no longer able to care for him as she herself does not feel well. He denies nausea or headaches. He has a cough and he gets short of breath with minimal exertion. He denies fever or chills. Review of Systems - Constitutional Reports as per HPI - Neurologic Reports abnormal speech ( expressive aphasia) Oncology Screenings - ECOG Performance Status ECOG Performance Status: 3 [facility] Medical History: Medical History (Last Updated 12/03/20 @ 06:45 by Prieto Hurst MD) COPD (chronic obstructive pulmonary disease) Depression HLD (hyperlipidemia) Iron deficiency anemia due to chronic blood loss Lung mass Family History: Family History (Last Reviewed 12/03/20 @ 06:45 by Prieto Hurst MD) Mother Stroke Maternal Uncle CHF (congestive heart failure) Maternal Uncle CHF (congestive heart failure) Paternal Grandmother CHF (congestive heart failure) Sister CHF (congestive heart failure) COPD (chronic obstructive pulmonary disease) Father Alzheimer disease Paternal Uncle Alzheimer disease Family/Other Diabetes Social History: Social History (Last Reviewed 12/02/20 @ 14:26 by Theodore Herrera MD) Living Situation History: Household Members: Family Household Members Other:: Sister Housing: House Do you presently have visiting nurse or other home services: Yes Alcohol History: Alcohol intake: former Alcohol History Details: Alcohol intake frequency: does not drink Tobacco History: Patient Tobacco Use Status: Former Tobacco user Cigarette Packs Per Day: 0.5 Smoke Quit Date: 11/14/2020 Second Hand Smoke Exposure: No Substance Use History: Use of substances other than those prescribed or required for medical reasons : No Domestic Abuse History: Have you been hit, kicked, punched, or otherwise hurt by someone within the past year? If so, by whom?: No Do you feel safe in your current relationship?: No Current Relationship Is there a partner from a previous relationship who is making you feel unsafe now?: No Are you made to feel afraid or neglected: No Advance Directives: Advance Directives: Yes Advance Directives on File: Yes Advance Directives Date on File: 11/09/20 Homicidal Assessment: Do you have thoughts of harming others: None Do you have a plan to hurt others: No Plan Nutrition Assessment: Recently lost weight without trying: Yes How much weight loss: 34pounds or more Eating poorly because of decreased appetite: Yes Nutrition screen score: 7 Nutrition Risks: Poor intake 0-25% >4 days Poor oral hygiene: No Occupation Assessmet: service: No Current occupational status: retired Home Medications and Allergies Current Medications: Current Medications Generic Name Dose Route Start Last Admin Trade Name Freq PRN Reason Stop Dose Admin Acetaminophen 650 mg 12/02/20 23:33 Acetaminophen 325 Mg Tablet PO Q6H PRN Pain, Mild (Pain Scale 1-3) Aspirin 81 mg 12/03/20 09:00 12/03/20 08:11 Aspirin Enteric Coated 81 Mg Tablet.Dr PO 81 mg DAILY DAIN Administration Atorvastatin Calcium 40 mg 12/03/20 09:00 12/03/20 08:11 Atorvastatin Calcium 40 Mg Tablet PO 40 mg DAILY DAIN Administration Dexamethasone Sodium Phosphate 4 mg 12/03/20 06:45 12/03/20 08:16 Dexamethasone Sod Phosphate 4 Mg/Ml Vial IVPUSH 4 mg Q6H DAIN Administration Docusate Sodium 100 mg 12/02/20 23:33 Docusate Sodium 100 Mg Capsule PO DAILY PRN Constipation Fluoxetine HCl 20 mg 12/03/20 09:00 12/03/20 08:12 Fluoxetine Hcl 20 Mg Capsule PO 20 mg DAILY DAIN Administration Heparin Sodium (Porcine) 5,000 unit 12/02/20 23:33 12/03/20 08:16 Heparin Sodium,Porcine 5,000 Unit/Ml Vial SUBCUT 5,000 unit BID DAIN Administration Sodium Chloride 1,000 mls @ 100 mls/hr 12/02/20 23:33 12/03/20 09:28 Ns IVCONT 0 mls/hr .Q10H DAIN Infusion Vancomycin HCl 500 mg/ Sodium 110 mls @ 110 mls/hr 12/03/20 11:00 Chloride IV Q12H DAIN Pamidronate Disodium 60 mg/ 260 mls @ 130 mls/hr 12/03/20 08:51 12/03/20 09:32 Sodium Chloride IV 12/03/20 10:50 130 mls/hr ONCE ONE Administration Ondansetron HCl 4 mg 12/02/20 23:33 Ondansetron Hcl 4 Mg/2 Ml Vial IVPUSH Q8H PRN Nausea and Vomiting Pharmacy Consult 1 each 12/02/20 23:33 Consult Rx Vancomycin Dosing MISCELLANE DAILY PRN Consult order Risperidone 1 mg 12/03/20 21:00 Risperidone 1 Mg Tablet PO BEDTIME [facility] Sodium Chloride 3 ml 12/03/20 00:00 12/03/20 09:30 0.9 % Sodium Chloride Flush 3 Ml Syringe IVFLUSH Not Given QSHIFT [facility] Home Medications Medication Instructions Recorded Confirmed Type atorvastatin 1 tab PO DAILY 11/09/20 12/02/20 History fluoxetine 1 cap PO QAM 11/09/20 12/02/20 History risperidone 1 tab PO BEDTIME 11/09/20 12/02/20 History aspirin 1 tab PO DAILY 12/02/20 12/02/20 History Allergies Allergy/AdvReac Type Severity Reaction Status Date / Time No Known Allergies Allergy Verified 11/15/20 08:20 Physical Exam Vital signs: Vital Signs Temp 96.8 F 12/03/20 07:27 Pulse 79 12/03/20 07:27 Resp 15 12/03/20 07:27 BP 139/67 12/03/20 07:27 Pulse Ox 91 L 12/03/20 07:27 Intake & Output 12/02/20 12/03/20 12/03/20 18:59 06:59 18:59 Intake Total 2099 / 3365 1265 / 3365 746.667 / 746.667 Balance 2100 / 3365 1265 / 3365 746.667 / 746.667 Intake: Intake, IV Amount 2100 / 3365 1265 / 3365 746.667 / 746.667 0.9 % Sodium Chloride 1,000 ml 2000 / 3000 1000 / 3000 @ 999 mls/hr IV .Q1H1M STA Rx#: [id number] Piperacillin Sodium/Tazobactam 100 / 100 4.5 gm In 0.9 % Sodium Chloride 100 ml @ 200 mls/hr IV ONCE ONE Rx#:[id number] vancomycin HCL 750 mg In 0.9 % 265 / 265 Sodium Chloride 250 ml @ 265 mls/hr IV ONCE ONE Rx#: [id number] 0.9 % Sodium Chloride 1,000 ml 746.667 / 746.667 @ 100 mls/hr IVCONT .Q10H DAIN Rx#:[id number] Other: Number of Incontinent Voids 1 Urine Bedpan Urine Color Yellow Weight 46 kg Weight 46 kg - Constitutional Present: no acute distress, thin, cachectic, chronically ill appearing - Routine HEENT Exam Head: Present: normal inspection Eye: Present: EOMI - Routine Neck Exam Present: supple - Routine Respiratory Exam Present: decreased breath sounds. Absent: accessory muscle use - Routine Cardiovascular Exam Cardiovascular: Present: S1, S2 - Routine Abdominal Exam Present: soft - Routine Skin Exam Present: intact. Absent: cyanosis - Routine Neurological Exam Present: alert, oriented X3 Hem/Onc Consult Result - Labs CBC & Chem 7: 12/03/20 05:21 12/03/20 05:21 Labs: Short CBC 12/02/20 12/03/20 Range/Units 14:56 05:21 WBC 21.6 H 27.3 H (4.8-10.8) X10*3/uL Hgb 10.3 L 9.6 L (14.0-18.0) g/dl Hct 34.0 L D 31.8 L (42-52) % Plt Count 437 H 388 (160-400) X10*3/uL BMP 12/02/20 12/02/20 12/03/20 14:56 19:35 05:21 Sodium 133 L 138 Potassium 5.3 H D 4.5 Chloride 95 L 105 Carbon Dioxide 28 24 BUN 17 H D 15 Creatinine 0.66 0.62 Calcium 12.2 H D 11.1 H D 10.6 H Liver Function 12/02/20 Range/Units 14:56 Total Bilirubin < 0.2 (0.0-1.0) mg/dL AST 21 (5-37) U/L ALT 15 (0-40) U/L Alkaline Phosphatase 289 H (39-117) U/L Albumin 3.0 L (3.5-5.0) g/dL Urine 12/02/20 Range/Units 16:00 Urine Color YELLOW Urine Appearance HAZY Urine pH 6.0 (5.0-8.0) Ur Specific [place] 1.010 (1.005-1.025) Urine Protein NEG (NEG-TRACE) MG/DL Urine Glucose (UA) NEG (NEG) MG/DL Assessment and Plan (1) Lung cancer Status: Acute 1. 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 PDL 1 expressed TPS 80%, panTRK expressed. CT chest with contrast on 11/09/2020 revealed a dense mass right lower lobe measuring 3.0 x 3.5 cm. Several ill-defined patchy opacities seen in the right upper lobe in the range of 1 cm to 1.7 cm 1.3 cm. Pleural-based nodule left lower lobe and less than 5 mm range ill-defined nodules in the left lower lobe and atelectasis in the lingula. The largest abnormal lymph node in the pretracheal space measuring 1.2 x 2.7 cm axial image 25/3.. Pericardial effusion seen. He underwent bronchoscopy and biopsy of right lower lobe mass which confirmed lung cancer. He was treated with antibiotics for possible right lower lobe pneumonia. PET-CT showed FDG avid right lower lobe mass as well as separate lesion in the right lung as well as smaller FDG avid lesions in the left lung. He is a candidate for immunotherapy based on high PDL1 expression. 2. Solitary brain metastasis. Brain MRI performed 11/25/2020 showed-Solitary 1.8 x 2.2 cm high left frontal lobe lesion with a moderate amount of surrounding vasogenic edema and [id number] regional mass effect, most suspicious for metastatic disease. He is now on IV dexamethasone. He needs referral to Radiation Oncology, sister cannot bring him to any appointments as she is sick. Patient needs a to be in a rehabilitation center to coordinate his care. 3. 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 Submit PTH level. Administer IV fluids and pamidronate x1. No bone metastasis seen on PET scan. Thank you, I will follow with you.
--- NOTE | 2020-12-03 10:53 | MHC.CLN ---
RE: CONSULT PT IS SEVERELY MALNOURISHED PT WITH SEVERELY DEPLETED SUBCUTANEOUS FAT AND MUSCLE MASS, BMI 15.4, 19% SIGNIFICANT WT LOSS AND CHRONIC POOR PO. DIET RX: REGULAR-APPROPRIATE RECOMMEND ADDING ENSURE TID TO INCREASE KCALS SUPPLEMENT TO PROVIDE 1050KCALS, 60G PROTEIN WITH 100% CONSUMPTION MONITOR PO INTAKE CLOSELY SEE ALSO CLINICAL NUTRITION ASSESSMENT
--- NOTE | 2020-12-03 11:24 | P.PNIM_ITS ---
Subjective Subjective Date of Service: 12/03/20 Interval History: weak but improved Cardiovascular Cardiovascular: Reports no additional cardiovascular complaints Gastrointestinal Gastrointestinal: Reports no additional gastrointestinal complaints Physical Exam Vital Signs: Vital Signs: Last Vital Signs Temp 97.6 F 12/03/20 11:20 Pulse 66 12/03/20 11:20 Resp 20 12/03/20 11:20 BP 113/55 L 12/03/20 11:20 Pulse Ox 94 12/03/20 11:20 Body Mass Index 15.4 General: AO X 3, ill appearing Resp: diminished CVS: S1,S2,RRR GI: soft, non tender, non distended Neuro: motor grossly intact Psych: appropriate affect Objective Data Current Medications Generic Name Dose Route Start Last Admin Trade Name Freq PRN Reason Stop Dose Admin Acetaminophen 650 mg 12/02/20 23:33 Acetaminophen 325 Mg Tablet PO Q6H PRN Pain, Mild (Pain Scale 1-3) Aspirin 81 mg 12/03/20 09:00 12/03/20 08:11 Aspirin Enteric Coated 81 Mg Tablet.Dr PO 81 mg DAILY DAIN Administration Atorvastatin Calcium 40 mg 12/03/20 09:00 12/03/20 08:11 Atorvastatin Calcium 40 Mg Tablet PO 40 mg DAILY DAIN Administration Dexamethasone Sodium Phosphate 4 mg 12/03/20 06:45 12/03/20 08:16 Dexamethasone Sod Phosphate 4 Mg/Ml Vial IVPUSH 4 mg Q6H DAIN Administration Docusate Sodium 100 mg 12/02/20 23:33 Docusate Sodium 100 Mg Capsule PO DAILY PRN Constipation Fluoxetine HCl 20 mg 12/03/20 09:00 12/03/20 08:12 Fluoxetine Hcl 20 Mg Capsule PO 20 mg DAILY DAIN Administration Heparin Sodium (Porcine) 5,000 unit 12/02/20 23:33 12/03/20 08:16 Heparin Sodium,Porcine 5,000 Unit/Ml Vial SUBCUT 5,000 unit BID DAIN Administration Sodium Chloride 1,000 mls @ 100 mls/hr 12/02/20 23:33 12/03/20 09:28 Ns IVCONT 0 mls/hr .Q10H DAIN Infusion Ondansetron HCl 4 mg 12/02/20 23:33 Ondansetron Hcl 4 Mg/2 Ml Vial IVPUSH Q8H PRN Nausea and Vomiting Pharmacy Consult 1 each 12/02/20 23:33 Consult Rx Vancomycin Dosing MISCELLANE DAILY PRN Consult order Risperidone 1 mg 12/03/20 21:00 Risperidone 1 Mg Tablet PO BEDTIME [facility] Sodium Chloride 3 ml 12/03/20 00:00 12/03/20 09:30 0.9 % Sodium Chloride Flush 3 Ml Syringe IVFLUSH Not Given QSHIFT [facility] Labs CBC & Chem 7: 12/03/20 05:21 12/03/20 05:21 Labs: Laboratory Results - last 24 hr 12/02/20 12/02/20 12/02/20 14:56 14:56 14:56 WBC 21.6 H RBC 4.81 D Hgb 10.3 L Hct 34.0 L D MCV 70.7 L MCH 21.4 L MCHC 30.3 L RDW 20.7 H Plt Count 437 H MPV 8.8 L Immature Gran % (Auto) 0.6 H Neut % (Auto) 90.0 H Lymph % (Auto) 4.7 L [place] % (Auto) 4.6 Eos % (Auto) 0.0 Baso % (Auto) 0.1 Lymph # (Auto) 1.0 L [place] # (Auto) 1.0 Eos # (Auto) 0.0 Baso # (Auto) 0.0 Abs Immat Gran (auto) 0.13 H Absolute Neuts (auto) 19.4 H Absolute Nucleated RBC 0.000 Nucleated RBC % (auto) 0.0 Smear Tech's Comments PT 14.3 H INR 1.2 H APTT 25.6 Sodium 133 L Potassium 5.3 H D Chloride 95 L Carbon Dioxide 28 Anion Gap 15 BUN 17 H D Creatinine 0.66 Estim Creat Clear Calc 69.6 Estimated GFR > 60 Random Glucose 96 Lactic Acid Lactic Acid Fup @ 2Hr Calcium 12.2 H D Total Bilirubin < 0.2 AST 21 ALT 15 Alkaline Phosphatase 289 H Troponin I High Sens B-Natriuretic Peptide Total Protein 7.1 Albumin 3.0 L Lipase 7 L Urine Color Urine Appearance Urine pH Ur Specific [place] Urine Protein Urine Glucose (UA) Urine Ketones Urine Blood Urine Nitrite Ur Leukocyte Esterase COVID-19 ([facility]) COVID-19 Clin Com 12/02/20 12/02/20 12/02/20 14:56 14:56 15:11 WBC RBC Hgb Hct MCV MCH MCHC RDW Plt Count MPV Immature Gran % (Auto) Neut % (Auto) Lymph % (Auto) [place] % (Auto) Eos % (Auto) Baso % (Auto) Lymph # (Auto) [place] # (Auto) Eos # (Auto) Baso # (Auto) Abs Immat Gran (auto) Absolute Neuts (auto) Absolute Nucleated RBC Nucleated RBC % (auto) Smear Tech's Comments PT INR APTT Sodium Potassium Chloride Carbon Dioxide Anion Gap BUN Creatinine Estim Creat Clear Calc Estimated GFR Random Glucose Lactic Acid 2.1 H* Lactic Acid Fup @ 2Hr Calcium Total Bilirubin AST ALT Alkaline Phosphatase Troponin I High Sens < 3.5 B-Natriuretic Peptide 35 Total Protein Albumin Lipase Urine Color Urine Appearance Urine pH Ur Specific [place] Urine Protein Urine Glucose (UA) Urine Ketones Urine Blood Urine Nitrite Ur Leukocyte Esterase COVID-19 ([facility]A) Negative COVID-[employer] Com See Note 12/02/20 12/02/20 12/02/20 16:00 18:59 19:35 WBC RBC Hgb Hct MCV MCH MCHC RDW Plt Count MPV Immature Gran % (Auto) Neut % (Auto) Lymph % (Auto) [place] % (Auto) Eos % (Auto) Baso % (Auto) Lymph # (Auto) [place] # (Auto) Eos # (Auto) Baso # (Auto) Abs Immat Gran (auto) Absolute Neuts (auto) Absolute Nucleated RBC Nucleated RBC % (auto) Smear Tech's Comments PT INR APTT Sodium Potassium Chloride Carbon Dioxide Anion Gap BUN Creatinine Estim Creat Clear Calc Estimated GFR Random Glucose Lactic Acid Lactic Acid Fup @ 2Hr 1.2 Calcium 11.1 H D Total Bilirubin AST ALT Alkaline Phosphatase Troponin I High Sens B-Natriuretic Peptide Total Protein Albumin Lipase Urine Color YELLOW Urine Appearance HAZY Urine pH 6.0 Ur Specific [place] 1.010 Urine Protein NEG Urine Glucose (UA) NEG Urine Ketones NEG Urine Blood NEG Urine Nitrite NEG Ur Leukocyte Esterase NEG COVID-19 ([facility]) COVID-[employer] 12/03/20 12/03/20 05:21 05:21 WBC 27.3 H RBC 4.48 L Hgb 9.6 L Hct 31.8 L MCV 71.0 L MCH 21.4 L MCHC 30.2 L RDW 20.6 H Plt Count 388 MPV 9.4 Immature Gran % (Auto) 0.6 H Neut % (Auto) 91.2 H Lymph % (Auto) 3.7 L [place] % (Auto) 4.3 Eos % (Auto) 0.0 Baso % (Auto) 0.2 Lymph # (Auto) 1.0 L [place] # (Auto) 1.2 Eos # (Auto) 0.0 Baso # (Auto) 0.1 Abs Immat Gran (auto) 0.17 H Absolute Neuts (auto) 24.9 H Absolute Nucleated RBC 0.000 Nucleated RBC % (auto) 0.0 Smear Tech's Comments VERIFIED PT INR APTT Sodium 138 Potassium 4.5 Chloride 105 Carbon Dioxide 24 Anion Gap 14 BUN 15 Creatinine 0.62 Estim Creat Clear Calc 74.1 Estimated GFR > 60 Random Glucose 98 Lactic Acid Lactic Acid Fup @ 2Hr Calcium 10.6 H Total Bilirubin AST ALT Alkaline Phosphatase Troponin I High Sens B-Natriuretic Peptide Total Protein Albumin Lipase Urine Color Urine Appearance Urine pH Ur Specific [place] Urine Protein Urine Glucose (UA) Urine Ketones Urine Blood Urine Nitrite Ur Leukocyte Esterase COVID-19 ([facility]) COVID-19 Clin Com Quality Stroke Does the patient have a stroke diagnosis?: No VTE Prior VTE?: No VTE Risk Level:: Medical - moderate - high VTE Device Contraindication: Treatment Not Indicated VTE Drug Contraindication: N/A - Med Ordered Assessment and Plan (1) Malignant neoplasm metastatic to brain: Status: Acute (2) Hypercalcemia: Status: Acute Assessment and Plan: 70M presented with weakness, found to have hypercalcemia weakness/failure to thrive/ severe protein calorie malnutrition due to hypercalcemia of malignancy giving pamidronate today, continue IVF, monitor stage IV lung cancer, squamous cell, with brain met plan for chemo and radiation outpatient on decadron doubt pneumonia monitor off antibiotics hyperkalemia resolved dispo: eventually to SNF (will need to be able to do chemo/radiation there)
--- NOTE | 2020-12-03 16:17 | PC.NURSE ---
Skin assessment completed today. No skin issues were found, skin dry and intact. All documentation matches.
[2020-12-03] MEDS: risperiDONE 1 MG TABLET PO (20:40)
[2020-12-04] VITALS (7 sets, daily range): BP systolic 101–161; BP diastolic 60–73; PULSE 69–84; RESP 16–22; TEMP 35.9–36.6; O2SAT 94–98
[2020-12-04] MEDS: dexAMETHasone sod phosphate 4 MG/ML VIAL IVPUSH ×4 (00:46→18:20)
[2020-12-04] MEDS: 0.9 % Sodium Chloride 1,000 ML 100 ML IVCONT ×3 (00:51→21:07)
[2020-12-04 06:45] LABS: Hemoglobin 10.1 g/dl (14.0-18.0); Mean Corpuscular HGB Conc 30.6 g/dl (31.0-36.0); Mean Corpuscular Hemoglobin 21.6 pg (27.0-33.0); Mean Corpuscular Volume 70.5 fL (80-98); Mean Platelet Volume 9.7 fL (9.4-12.4); Platelet Count 397 X10*3/uL (160-400); Red Blood Count 4.68 X10*6/uL (4.60-5.80); Red Cell Distribution Width 21.5 % (11.0-16.0)
[2020-12-04 07:18] LABS: Alanine Aminotransferase 19 U/L (0-40); Alkaline Phosphatase 226 U/L (39-117); Anion Gap 13 (12-20); Aspartate Amino Transferase 20 U/L (5-37); Bilirubin Direct < 0.2 mg/dL (0.0-0.5); Blood Urea Nitrogen 18 mg/dL (9-16); Carbon Dioxide 23 mmol/L (22-29); Chloride 105 mmol/L (96-108); Creatinine Clr Calc Pharmacy 77.9; Estimated Glomerular Filt Rate > 60; Glucose Fasting 95 mg/dL (60-99); Potassium 4.4 mmol/L (3.3-5.1); Sodium 137 mmol/L (135-145)
[2020-12-04 07:45] LABS: White Blood Count 30.1 X10*3/uL (4.8-10.8)
[2020-12-04 08:04] LABS: Albumin Level 2.2 g/dL (3.5-5.0); Calcium 10.4 mg/dL (8.4-10.2); Total Protein 5.2 g/dL (6.5-8.0)
[2020-12-04] MEDS: Atorvastatin Calcium 40 MG TABLET PO (10:03)
[2020-12-04] MEDS: Aspirin Enteric Coated 81 MG TABLET.DR PO (10:03)
[2020-12-04] MEDS: Heparin Sodium,Porcine 5,000 UNIT/ML VIAL 5000 UNIT SUBCUT ×2 (10:03→19:58)
[2020-12-04] MEDS: FLUoxetine HCl 20 MG CAPSULE PO (10:03)
[2020-12-04 11:47] LABS: Vancomycin Trough < 3.0 mcg/mL (10.0-20.0)
--- NOTE | 2020-12-04 13:11 | HO.PM.IMPN ---
Subjective Subjective Date of Service: 12/04/20 Interval History: seen and evaluated this morning Sitting comfortable in his chair, notable right-sided weakness WBCs above 30 today Able to have a bowel movement overnight Physical Exam Vital Signs: Vital Signs: Last Vital Signs Temp 96.6 F L 12/04/20 11:07 Pulse 70 12/04/20 11:07 Resp 16 12/04/20 11:07 BP 131/69 12/04/20 11:07 Pulse Ox 96 12/04/20 11:07 Body Mass Index 15.4 Const: Other: Constitutional : Alert, looks ill and tired Neck : Normal inspection, Supple Cardiovascular : S1 S2, no lower extremity edema Respiratory : decreased bilateral air entry, no crackles Gastrointestinal: soft, lax, Normal bowel sounds, Non tender Skin : Warm/Dry, No rash Neurological : Alert , right upper extremity weakness Objective Data Current Medications Generic Name Dose Route Start Last Admin Trade Name Freq PRN Reason Stop Dose Admin Acetaminophen 650 mg 12/02/20 23:33 Acetaminophen 325 Mg Tablet PO Q6H PRN Pain, Mild (Pain Scale 1-3) Aspirin 81 mg 12/03/20 09:00 12/04/20 10:03 Aspirin Enteric Coated 81 Mg Tablet. PO 81 mg DAILY DAIN Administration Atorvastatin Calcium 40 mg 12/03/20 09:00 12/04/20 10:03 Atorvastatin Calcium 40 Mg Tablet PO 40 mg DAILY DAIN Administration Dexamethasone Sodium Phosphate 4 mg 12/03/20 06:45 12/04/20 12:51 Dexamethasone Sod Phosphate 4 Mg/Ml Vial IVPUSH 4 mg Q6H DAIN Administration Docusate Sodium 100 mg 12/02/20 23:33 Docusate Sodium 100 Mg Capsule PO DAILY PRN Constipation Fluoxetine HCl 20 mg 12/03/20 09:00 12/04/20 10:03 Fluoxetine Hcl 20 Mg Capsule PO 20 mg DAILY DAIN Administration Heparin Sodium (Porcine) 5,000 unit 12/02/20 23:33 12/04/20 10:03 Heparin Sodium,Porcine 5,000 Unit/Ml Vial SUBCUT 5,000 unit BID DAIN Administration Sodium Chloride 1,000 mls @ 100 mls/hr 12/02/20 23:33 12/04/20 10:17 Ns IVCONT 100 mls/hr .Q10H DAIN Administration Ondansetron HCl 4 mg 12/02/20 23:33 Ondansetron Hcl 4 Mg/2 Ml Vial IVPUSH Q8H PRN Nausea and Vomiting Pharmacy Consult 1 each 12/02/20 23:33 Consult Rx Vancomycin Dosing MISCELLANE DAILY PRN Consult order Risperidone 1 mg 12/03/20 21:00 12/03/20 20:40 Risperidone 1 Mg Tablet PO 1 mg BEDTIME DAIN Administration Sodium Chloride 3 ml 12/03/20 00:00 12/04/20 09:08 0.9 % Sodium Chloride Flush 3 Ml Syringe IVFLUSH Not Given QSHIFT [facility] Labs CBC & Chem 7: 12/04/20 05:19 12/04/20 05:19 Labs: Laboratory Results - last 24 hr 12/04/20 12/04/20 12/04/20 05:19 05:19 10:05 WBC 30.1 H* RBC 4.68 Hgb 10.1 L Hct 33.0 L MCV 70.5 L MCH 21.6 L MCHC 30.6 L RDW 21.5 H Plt Count 397 MPV 9.7 Absolute Nucleated RBC 0.000 Nucleated RBC % (auto) 0.0 Sodium 137 Potassium 4.4 Chloride 105 Carbon Dioxide 23 Anion Gap 13 BUN 18 H Creatinine 0.59 Estim Creat Clear Calc 77.9 Estimated GFR > 60 Fasting Glucose 95 Calcium 10.4 H Total Bilirubin < 0.2 Direct Bilirubin < 0.2 AST 20 ALT 19 Alkaline Phosphatase 226 H D Total Protein 5.2 L D Albumin 2.2 L D Vancomycin Trough < 3.0 L Microbiology Microbiology Results: Microbiology 12/02/20 15:11 Blood Culture - Preliminary Blood - Venous No growth after 24 hours. 12/02/20 14:56 Blood Culture - Preliminary Blood - Venous No growth after 24 hours. Quality Stroke Does the patient have a stroke diagnosis?: No VTE Prior VTE?: No VTE Risk Level:: Medical - moderate - high VTE Device Contraindication: Treatment Not Indicated VTE Drug Contraindication: N/A - Med Ordered Assessment and Plan (1) Malignant neoplasm metastatic to brain: Status: Acute (2) Hypercalcemia: Status: Acute Assessment and Plan: 70M presented with weakness, found to have hypercalcemia Generalized weakness Hypercalcemia of malignancy received pamidronate continue IVF, monitor corrected calcium level of 11.8 failure to thrive/ severe protein calorie malnutrition 2/2 stage IV lung cancer, squamous cell, with brain met plan for at least radiation therapy outpatient on decadron oncology input appreciated Vasogenic edema Continue Decadron doubt pneumonia monitor off antibiotics hyperkalemia resolved dispo: eventually to SNF were they can at least to do radiation therapy
--- NOTE | 2020-12-04 14:52 | MHC.CM.PN ---
Addendum entered by Jessie Pool 12/04/20 14:54: Anticipate DC tomorrow per Original Note: DP Patient has been accepted at [facility] in [place]. Spoke with his Sister today. She is in agreement with the DP. Pt will be transported via BLS.
[2020-12-04 17:00] LABS: Bilirubin Total 0.2 mg/dL (0.0-1.0)
[2020-12-04] MEDS: risperiDONE 1 MG TABLET PO (19:58)
[2020-12-04] MEDS: 0.9 % Sodium Chloride Flush 3 ML SYRINGE IVFLUSH (19:58)
[2020-12-05] MEDS: dexAMETHasone sod phosphate 4 MG/ML VIAL IVPUSH ×3 (00:26→12:38)
[2020-12-05 03:40] VITALS: BP 129/73; PULSE 78; RESP 18; TEMP 36.9; O2SAT 95
[2020-12-05 04:20] LABS: CDiff Gene PCR POSITIVE (Negative)
[2020-12-05 04:50] LABS: CDiff Toxin Positive (Negative)
[2020-12-05 04:52] LABS: CDIFF Internal ctrl Dots and bkg OK (V)
[2020-12-05] MEDS: vancomycin HCL 125 MG CAPSULE PO (06:08)
[2020-12-05] MEDS: 0.9 % Sodium Chloride 1,000 ML 100 ML IVCONT ×2 (06:12→21:25)
--- NOTE | 2020-12-05 06:39 | P.EN_ITS ---
Event Note Date of Service: 12/05/20 Event Note: pt's sister came to hospital found to have C diff. pt lives with sandrine ma. tested positive for c diff, he has diarrhea. started on po vancomycin
[2020-12-05 07:09] LABS: Hematocrit 35.1 % (42-52); Hemoglobin 10.8 g/dl (14.0-18.0); Mean Corpuscular HGB Conc 30.8 g/dl (31.0-36.0); Mean Corpuscular Hemoglobin 21.7 pg (27.0-33.0); Mean Corpuscular Volume 70.6 fL (80-98); Mean Platelet Volume 10.3 fL (9.4-12.4); Platelet Count 339 X10*3/uL (160-400); Red Blood Count 4.97 X10*6/uL (4.60-5.80); Red Cell Distribution Width 22.5 % (11.0-16.0); White Blood Count 29.1 X10*3/uL (4.8-10.8)
[2020-12-05 07:39] VITALS: BP 152/67; PULSE 86; RESP 20; TEMP 36.6; O2SAT 95
[2020-12-05 07:40] LABS: Anion Gap 14 (12-20); Blood Urea Nitrogen 23 mg/dL (9-16); Carbon Dioxide 21 mmol/L (22-29); Chloride 107 mmol/L (96-108); Creatinine Clr Calc Pharmacy 76.6; Estimated Glomerular Filt Rate > 60; Glucose Random 101 mg/dL (60-115); Potassium 4.6 mmol/L (3.3-5.1); Sodium 137 mmol/L (135-145)
[2020-12-05 07:51] LABS: Calcium 9.6 mg/dL (8.4-10.2)
--- NOTE | 2020-12-05 11:23 | MHC.CLN ---
F/U PT IS SEVERELY MALNOURISHED PT WITH SEVERELY DEPLETED SUBCUTANEOUS FAT AND MUSCLE MASS, BMI 15.4, 19% SIGNIFICANT WT LOSS AND CHRONIC POOR PO. PO ITNAKE 50% AVG DIET RX: REGULAR-APPROPRIATE RECOMMEND RE-STARTING ENSURE TID TO INCREASE KCALS SUPPLEMENT TO PROVIDE 1050KCALS, 60G PROTEIN WITH 100% CONSUMPTION MONITOR PO INTAKE CLOSELY FOLLOWING
[2020-12-05 11:24] VITALS: BP 121/73; PULSE 71; RESP 20; TEMP 36; O2SAT 95
[2020-12-05] MEDS: Aspirin Enteric Coated 81 MG TABLET.DR PO (12:38)
[2020-12-05] MEDS: Heparin Sodium,Porcine 5,000 UNIT/ML VIAL 5000 UNIT SUBCUT ×2 (12:38→21:20)
[2020-12-05] MEDS: Atorvastatin Calcium 40 MG TABLET PO (12:39)
[2020-12-05] MEDS: vancomycin HCL Oral Solution 125 MG/5 ML SOLN.RECON PO ×2 (14:30→18:43)
[2020-12-05] MEDS: FLUoxetine HCl Oral Solution 20 MG/5 ML SOLUTION PO (14:30)
--- NOTE | 2020-12-05 15:02 | HO.PM.IMPN ---
Subjective Subjective Date of Service: 12/05/20 Interval History: the patient was seen and evaluated this morning Laying in bed, feels comfortable, more alert and interactive today Denies any fever, chills or shortness of breath developed diarrhea overnight and tested positive for C diff No reported other overnight events. Systemic review: No fever, chills And general weakness has improved No chest pain, palpitation No shortness of breath or coughing No abdominal pain, nausea or vomiting but significant diarrhea No urinary symptoms No any rash or wounds Physical Exam Vital Signs: Vital Signs: Last Vital Signs Temp 96.8 F 12/05/20 11:24 Pulse 71 12/05/20 11:24 Resp 20 12/05/20 11:24 BP 121/73 12/05/20 11:24 Pulse Ox 95 12/05/20 11:24 Body Mass Index 15.4 Const: Other: Constitutional : Alert, looks more comfortable and interactive Neck : Normal inspection, Supple Cardiovascular : S1 S2, no lower extremity edema Respiratory : decreased bilateral air entry, no crackles Gastrointestinal: soft, lax, Normal bowel sounds, Non tender Skin : Warm/Dry, No rash Neurological : Alert , oriented x 3 , right upper extremity weakness Objective Data Current Medications Generic Name Dose Route Start Last Admin Trade Name Freq PRN Reason Stop Dose Admin Acetaminophen 650 mg 12/02/20 23:33 Acetaminophen 325 Mg Tablet PO Q6H PRN Pain, Mild (Pain Scale 1-3) Aspirin 81 mg 12/03/20 09:00 12/05/20 12:38 Aspirin Enteric Coated 81 Mg Tablet.Dr PO 81 mg DAILY DAIN Administration Atorvastatin Calcium 40 mg 12/03/20 09:00 12/05/20 12:39 Atorvastatin Calcium 40 Mg Tablet PO 40 mg DAILY DAIN Administration Dexamethasone Sodium Phosphate 4 mg 12/03/20 06:45 12/05/20 12:38 Dexamethasone Sod Phosphate 4 Mg/Ml Vial IVPUSH 4 mg Q6H DAIN Administration Docusate Sodium 100 mg 12/02/20 23:33 Docusate Sodium 100 Mg Capsule PO DAILY PRN Constipation Fluoxetine HCl 20 mg 12/05/20 12:45 12/05/20 14:30 Fluoxetine Hcl Oral Solution 20 Mg/5 Ml Solution PO 20 mg DAILY DAIN Administration Heparin Sodium (Porcine) 5,000 unit 12/02/20 23:33 12/05/20 12:38 Heparin Sodium,Porcine 5,000 Unit/Ml Vial SUBCUT 5,000 unit BID DAIN Administration Sodium Chloride 1,000 mls @ 100 mls/hr 12/02/20 23:33 12/05/20 06:12 Ns IVCONT 100 mls/hr .Q10H DAIN Administration Ondansetron HCl 4 mg 12/02/20 23:33 Ondansetron Hcl 4 Mg/2 Ml Vial IVPUSH Q8H PRN Nausea and Vomiting Pharmacy Consult 1 each 12/02/20 23:33 Consult Rx Vancomycin Dosing MISCELLANE DAILY PRN Consult order Risperidone 1 mg 12/03/20 21:00 12/04/20 19:58 Risperidone 1 Mg Tablet PO 1 mg BEDTIME DAIN Administration Sodium Chloride 3 ml 12/03/20 00:00 12/05/20 12:45 0.9 % Sodium Chloride Flush 3 Ml Syringe IVFLUSH Not Given QSHIFT DAIN Vancomycin HCl 125 mg 12/05/20 13:00 12/05/20 14:30 Vancomycin Hcl Oral Solution 125 Mg/5 Ml Soln.Recon PO 125 mg Q6H DAIN Administration Labs CBC & Chem 7: 12/05/20 05:26 12/05/20 05:26 Labs: Laboratory Results - last 24 hr 12/04/20 12/05/20 12/05/20 05:19 03:18 05:26 WBC 29.1 H RBC 4.97 Hgb 10.8 L Hct 35.1 L MCV 70.6 L MCH 21.7 L MCHC 30.8 L RDW 22.5 H Plt Count 339 MPV 10.3 Absolute Nucleated RBC 0.000 Nucleated RBC % (auto) 0.0 Sodium Potassium Chloride Carbon Dioxide Anion Gap BUN Creatinine Estim Creat Clear Calc Estimated GFR Random Glucose Calcium Total Bilirubin 0.2 C. difficile Tox B Gene POSITIVE A* C. difficile Toxin A&B Positive A C. difficile Interpret SEE NOTE 12/05/20 05:26 WBC RBC Hgb Hct MCV MCH MCHC RDW Plt Count MPV Absolute Nucleated RBC Nucleated RBC % (auto) Sodium 137 Potassium 4.6 Chloride 107 Carbon Dioxide 21 L Anion Gap 14 BUN 23 H Creatinine 0.60 Estim Creat Clear Calc 76.6 Estimated GFR > 60 Random Glucose 101 Calcium 9.6 D Total Bilirubin C. difficile Tox B Gene C. difficile Toxin A&B C. difficile Interpret Microbiology Microbiology Results: Microbiology 12/02/20 15:11 Blood Culture - Preliminary Blood - Venous No growth after 48 hours. 12/02/20 14:56 Blood Culture - Preliminary Blood - Venous No growth after 48 hours. Quality Stroke Does the patient have a stroke diagnosis?: No VTE Prior VTE?: No VTE Risk Level:: Medical - moderate - high VTE Device Contraindication: Treatment Not Indicated VTE Drug Contraindication: N/A - Med Ordered Assessment and Plan (1) Malignant neoplasm metastatic to brain: Status: Acute (2) Hypercalcemia: Status: Acute Assessment and Plan: 70M presented with weakness, found to have hypercalcemia C diff infection Patient tested positive for C diff Started on vancomycin orally Monitor for dehydration Generalized weakness Hypercalcemia of malignancy received pamidronate continue IVF, monitor corrected calcium level of 11 failure to thrive/ severe protein calorie malnutrition 2/2 stage IV lung cancer, squamous cell, with brain met plan for at least radiation therapy outpatient on decadron oncology input appreciated Vasogenic edema Continue Decadron, changed to hyperkalemia resolved dispo: eventually to SNF were they can at least to do radiation therapy
[2020-12-05 15:27] VITALS: BP 120/70; PULSE 74; RESP 18; TEMP 36.4; O2SAT 98
[2020-12-05 19:16] VITALS: BP 116/68; PULSE 74; RESP 18; TEMP 36.6; O2SAT 97
[2020-12-05] MEDS: risperiDONE 1 MG TABLET PO (21:20)
[2020-12-05] MEDS: 0.9 % Sodium Chloride Flush 3 ML SYRINGE IVFLUSH (21:28)
[2020-12-05 23:32] VITALS: BP 138/78; PULSE 79; RESP 15; TEMP 36.4; O2SAT 96
[2020-12-06] MEDS: vancomycin HCL Oral Solution 125 MG/5 ML SOLN.RECON PO ×4 (00:28→18:06)
[2020-12-06 03:19] VITALS: BP 139/78; PULSE 89; RESP 17; TEMP 36.5; O2SAT 96
[2020-12-06] MEDS: traZODone HCL 25 MG HALFTAB PO ×2 (03:47→21:21)
[2020-12-06 05:14] LABS: Hematocrit 34.8 % (42-52); Hemoglobin 10.8 g/dl (14.0-18.0); Mean Corpuscular Hemoglobin 21.8 pg (27.0-33.0); Mean Corpuscular Volume 70.3 fL (80-98); Mean Platelet Volume 9.8 fL (9.4-12.4); Platelet Count 256 X10*3/uL (160-400); Red Blood Count 4.95 X10*6/uL (4.60-5.80)
[2020-12-06 05:29] LABS: White Blood Count 40.3 X10*3/uL (4.8-10.8)
[2020-12-06 07:02] VITALS: BP 144/80; PULSE 93; RESP 18; TEMP 36.6; O2SAT 96
[2020-12-06] MEDS: Aspirin Enteric Coated 81 MG TABLET.DR PO (07:19)
[2020-12-06] MEDS: Atorvastatin Calcium 40 MG TABLET PO (07:19)
[2020-12-06] MEDS: Heparin Sodium,Porcine 5,000 UNIT/ML VIAL 5000 UNIT SUBCUT ×2 (07:19→20:41)
[2020-12-06] MEDS: FLUoxetine HCl Oral Solution 20 MG/5 ML SOLUTION PO (07:19)
[2020-12-06] MEDS: dexAMETHasone 6 MG TABLET PO (07:19)
[2020-12-06] MEDS: 0.9 % Sodium Chloride 1,000 ML 80 ML IVCONT (08:38)
[2020-12-06 09:30] LABS: Anion Gap 15 (12-20); Blood Urea Nitrogen 27 mg/dL (9-16); Calcium 8.6 mg/dL (8.4-10.2); Carbon Dioxide 21 mmol/L (22-29); Chloride 105 mmol/L (96-108); Creatinine Clr Calc Pharmacy 69.6; Estimated Glomerular Filt Rate > 60; Glucose Random 143 mg/dL (60-115); Potassium 4.1 mmol/L (3.3-5.1); Sodium 137 mmol/L (135-145)
[2020-12-06 11:05] VITALS: BP 124/80; PULSE 75; RESP 22; TEMP 36.2; O2SAT 96
--- NOTE | 2020-12-06 13:02 | MHC.CLN ---
F/U PO INTAKE POOR TODAY NOTED C-DIFF + DIET RX: REGULAR-APPROPRIATE PT RECEIVING ENSURE TID TO INCREASE KCALS SUPPLEMENT TO PROVIDE 1050KCALS, 60G PROTEIN WITH 100% CONSUMPTION CONTINUE TO MONITOR PO INTAKE CLOSELY FOLLOWING
--- NOTE | 2020-12-06 14:20 | HO.PM.IMPN ---
Subjective Subjective Date of Service: 12/06/20 Interval History: the patient was seen and evaluated this morning Laying in bed, reported feeling tired is more difficult for him to speak today more alert and interactive today Denies any fever, chills or shortness of breath having episodes of diarrhea overnight No reported other overnight events. Systemic review: No fever, chills And general weakness has improved No chest pain, palpitation No shortness of breath or coughing No abdominal pain, nausea or vomiting but significant diarrhea No urinary symptoms No any rash or wounds Physical Exam Vital Signs: Vital Signs: Last Vital Signs Temp 97.1 F 12/06/20 11:05 Pulse 75 12/06/20 11:05 Resp 22 H 12/06/20 11:05 BP 124/80 12/06/20 11:05 Pulse Ox 96 12/06/20 11:05 Body Mass Index 15.4 Const: Other: Constitutional : Alert, looks comfortable overall, analysis was removed many many Neck : Normal inspection, Supple Cardiovascular : S1 S2, no lower extremity edema Respiratory : decreased bilateral air entry, no crackles Gastrointestinal: soft, lax, Normal bowel sounds, Non tender Skin : Warm/Dry, No rash Neurological : Alert , oriented x 3 , right upper extremity weakness Objective Data Current Medications Generic Name Dose Route Start Last Admin Trade Name Freq PRN Reason Stop Dose Admin Acetaminophen 650 mg 12/02/20 23:33 Acetaminophen 325 Mg Tablet PO Q6H PRN Pain, Mild (Pain Scale 1-3) Aspirin 81 mg 12/03/20 09:00 12/06/20 07:19 Aspirin Enteric Coated 81 Mg Tablet. PO 81 mg DAILY DAIN Administration Atorvastatin Calcium 40 mg 12/03/20 09:00 12/06/20 07:19 Atorvastatin Calcium 40 Mg Tablet PO 40 mg DAILY DAIN Administration Dexamethasone 6 mg 12/06/20 09:00 12/06/20 07:19 Dexamethasone 6 Mg Tablet PO 6 mg DAILY DAIN Administration Docusate Sodium 100 mg 12/02/20 23:33 Docusate Sodium 100 Mg Capsule PO DAILY PRN Constipation Fluoxetine HCl 20 mg 12/05/20 12:45 12/06/20 07:19 Fluoxetine Hcl Oral Solution 20 Mg/5 Ml Solution PO 20 mg DAILY DAIN Administration Heparin Sodium (Porcine) 5,000 unit 12/02/20 23:33 12/06/20 07:19 Heparin Sodium,Porcine 5,000 Unit/Ml Vial SUBCUT 5,000 unit BID DAIN Administration Sodium Chloride 1,000 mls @ 80 mls/hr 12/06/20 08:30 12/06/20 08:38 Ns IVCONT 80 mls/hr .[id number] DAIN Administration Ondansetron HCl 4 mg 12/02/20 23:33 Ondansetron Hcl 4 Mg/2 Ml Vial IVPUSH Q8H PRN Nausea and Vomiting Pharmacy Consult 1 each 12/02/20 23:33 Consult Rx Vancomycin Dosing MISCELLANE DAILY PRN Consult order Risperidone 1 mg 12/03/20 21:00 12/05/20 21:20 Risperidone 1 Mg Tablet PO 1 mg BEDTIME DAIN Administration Sodium Chloride 3 ml 12/03/20 00:00 12/06/20 07:27 0.9 % Sodium Chloride Flush 3 Ml Syringe IVFLUSH Not Given QSHIFT DAIN Vancomycin HCl 125 mg 12/05/20 13:00 12/06/20 13:15 Vancomycin Hcl Oral Solution 125 Mg/5 Ml Soln.Recon PO 125 mg Q6H DAIN Administration Labs CBC & Chem 7: 12/06/20 04:56 12/06/20 08:32 Labs: Laboratory Results - last 24 hr 12/06/20 12/06/20 04:56 08:32 WBC 40.3 H* RBC 4.95 Hgb 10.8 L Hct 34.8 L MCV 70.3 L MCH 21.8 L MCHC 31.0 RDW 22.0 H Plt Count 256 MPV 9.8 Absolute Nucleated RBC 0.000 Nucleated RBC % (auto) 0.0 Sodium 137 Potassium 4.1 Chloride 105 Carbon Dioxide 21 L Anion Gap 15 BUN 27 H Creatinine 0.66 Estim Creat Clear Calc 69.6 Estimated GFR > 60 Random Glucose 143 H D Calcium 8.6 D Quality Stroke Does the patient have a stroke diagnosis?: No VTE Prior VTE?: No VTE Risk Level:: Medical - moderate - high VTE Device Contraindication: Treatment Not Indicated VTE Drug Contraindication: N/A - Med Ordered Assessment and Plan (1) Malignant neoplasm metastatic to brain: Status: Acute (2) Hypercalcemia: Status: Acute Assessment and Plan: 70M presented with weakness, found to have hypercalcemia C diff infection Patient tested positive for C diff continue vancomycin orally day 2 of 14 [place] [id number] today Partially from steroids and also the C diff infection If continue to monitor clinical response and follow WBCs. Hypercalcemia of malignancy received pamidronate discontinue IVF, monitor corrected calcium level of 10.5 failure to thrive/ severe protein calorie malnutrition 2/2 stage IV lung cancer, squamous cell, with brain met plan for at least radiation therapy outpatient on decadron , oncology input appreciated, 4 mg b.i.d.. Vasogenic edema Continue Decadron, changed to P.o. hyperkalemia resolved dispo: eventually to SNF were they can at least to do radiation therapy
[2020-12-06 15:40] VITALS: BP 122/98; PULSE 77; RESP 18; TEMP 36.7; O2SAT 92
[2020-12-06 19:21] VITALS: BP 160/95; PULSE 86; RESP 15; TEMP 37.1; O2SAT 97
[2020-12-06] MEDS: risperiDONE 1 MG TABLET PO (20:41)
[2020-12-06] MEDS: 0.9 % Sodium Chloride Flush 3 ML SYRINGE IVFLUSH (21:23)
[2020-12-06 23:27] VITALS: BP 124/79; PULSE 84; RESP 18; TEMP 36.1; O2SAT 97
[2020-12-07] MEDS: vancomycin HCL Oral Solution 125 MG/5 ML SOLN.RECON PO ×3 (01:06→12:48)
[2020-12-07 03:53] VITALS: BP 141/76; PULSE 77; RESP 18; TEMP 36.4; O2SAT 92
[2020-12-07 06:54] LABS: Hemoglobin 10.9 g/dl (14.0-18.0); Mean Corpuscular Volume 69.7 fL (80-98)
[2020-12-07 06:56] LABS: Mean Corpuscular HGB Conc 31.1 g/dl (31.0-36.0); Mean Corpuscular Hemoglobin 21.7 pg (27.0-33.0); PLT CLUMP 1; Red Blood Count 5.02 X10*6/uL (4.60-5.80); Red Cell Distribution Width 22.9 % (11.0-16.0)
[2020-12-07 07:04] VITALS: BP 119/77; PULSE 88; RESP 18; TEMP 35.7; O2SAT 93
[2020-12-07 07:17] LABS: PLT ABN DIST 1
[2020-12-07 07:19] LABS: White Blood Count 33.6 X10*3/uL (4.8-10.8)
[2020-12-07 07:30] LABS: Anion Gap 18 (12-20); Blood Urea Nitrogen 28 mg/dL (9-16); Calcium 8.1 mg/dL (8.4-10.2); Carbon Dioxide 17 mmol/L (22-29); Chloride 105 mmol/L (96-108); Creatinine Clr Calc Pharmacy 76.6; Estimated Glomerular Filt Rate > 60; Glucose Random 84 mg/dL (60-115); Potassium 4.6 mmol/L (3.3-5.1); Sodium 135 mmol/L (135-145)
[2020-12-07 07:31] LABS: Platelet Count 139 X10*3/uL (160-400)
[2020-12-07] MEDS: Atorvastatin Calcium 40 MG TABLET PO (09:25)
[2020-12-07] MEDS: Aspirin Enteric Coated 81 MG TABLET.DR PO (09:25)
[2020-12-07] MEDS: dexAMETHasone 4 MG TABLET PO (09:26)
[2020-12-07] MEDS: FLUoxetine HCl Oral Solution 20 MG/5 ML SOLUTION PO (09:28)
[2020-12-07] MEDS: Heparin Sodium,Porcine 5,000 UNIT/ML VIAL 5000 UNIT SUBCUT (09:29)
[2020-12-07] MEDS: 0.9 % Sodium Chloride Flush 3 ML SYRINGE IVFLUSH (09:29)
[2020-12-07 10:57] VITALS: BP 104/73; PULSE 88; RESP 22; TEMP 36.6; O2SAT 97
[2020-12-07 10:59] LABS: COVID-19 Test Negative (Negative)
[2020-12-07] MEDS: Morphine Sulfate Oral Sol 10 MG/5 ML SOLUTION 2.5 MG PO (11:50)
[2020-12-07 12:27] VITALS: BP 104/73; PULSE 90; O2SAT 97
--- NOTE | 2020-12-07 13:00 | MHC.CM.PN ---
Addendum entered by Michelle Mclean 12/07/20 13:22: DISCHARGING TO [facility] AT [address] [facility] Addendum entered by Michelle Mclean 12/07/20 13:13: PER LIAISON, [facility] WILL ACCEPT PT ON HIS MEDICARE TO ATTEMPT REHAB AND IF PT IS UNABLE TO PARTICIPATE, THEY WILL TRANSITION HIM TO LTC USING HIS MEDICAID BENEFIT. PT WILL DC TO STR TODAY AT 1600 HOURS VIA BLS Original Note: PT CLEARED TO DISCHARGE. PER DOCUMENTATION, PT HAD A BED OFFER AT [facility] HOWEVER WHEN NOTIFIED OF PENDING DISCHARGE, THEY REQUESTED A PT EVAL. PT EVAL COMPLETED, INDICATING PT SHOULD HE LTC. PT AND FAMILY ARE INTERESTED IN PT ATTEMPTING REHAB. PT EVAL WAS SENT TO SNF, CURRENTLY AWAITING A RESPONSE TO WHETHER OR NOT THEY WILL BE TAKING THIS PT TODAY. TWO ALTERNATE FACILITIES WERE OFFERING BEDS OF 12/04/20. CM WILL FOLLOW UP WITH THEM TO DETERMINE IF THEY STILL HAVE OPENINGS. OSWALDO SPOKE TO PTS HCP, YE MURDOCK, WHO WAS IN THE HOSPITAL, THIS MORNING. SHE IS AWARE AND AGREEABLE TO PTS DC PLAN. CM WILL UPDATE HER IN THERE IS A FACILITY CHANGE. PT WILL DC TO STR VIA BLS. FACILITY TBD
--- NOTE | 2020-12-07 13:34 | PM.DS ---
DS: Providers Provider Date of Service: 12/07/20 Date of admission: 12/02/20 23:19 Primary care physician: Michael Cervantes MD Consults: 12/02/20 23:33 Consult to Hematology / Oncology Routine Consulting Provider: Isabella Tierney Reason for consultation: metastatic ds Has provider been notified: No DS: Diagnosis Discharge Diagnosis (1) Malignant neoplasm metastatic to brain: Status: Acute (2) Hypercalcemia: Status: Acute (3) Hyperkalemia: Status: Acute (4) Lactic acidosis: Status: Acute (5) Leukocytosis: Status: Acute (6) Adult failure to thrive: Status: Acute (7) Severe protein-calorie malnutrition: Status: Acute DS: Medications Discharge Medications Home Medications: Home Medications Medication Instructions Recorded Confirmed atorvastatin 1 tab PO DAILY 11/09/20 12/02/20 fluoxetine 1 cap PO QAM 11/09/20 12/02/20 risperidone 1 tab PO BEDTIME 11/09/20 12/02/20 aspirin 1 tab PO DAILY 12/02/20 12/02/20 Previous Rx's Medication Instructions Recorded ferrous sulfate 325 mg PO DAILY #30 tab 11/13/20 Shower Chair #1 ea 11/25/20 commode #1 ea 11/25/20 dexamethasone 4 mg PO BID #30 tab 11/25/20 nebulizers #1 ea 11/25/20 dexamethasone See Taper PO BID #40 tab 12/07/20 vancomycin [Firvanq] 125 mg PO Q6H 11 Days #220 ml 12/07/20 DS: Summary Hospital Course Hospital Course: admission note HPI 70-year-old male with past medical history of depression, recently diagnosed lung cancer, discharge from the hospital on November 13 after being treated for postobstructive pneumonia as well as CVA, HLD, COPD, who presents to the hospital with weakness. patient has history of CVA with some speech difficulty but comprehensible, he reports that his sister called the ambulance to bring him to the hospital because of weakness. According to sister as well as EMS they were called to the house about 3 times this week due to patient needing assistance. Patient noted to have a cough when asked about any said he started having a cough about 2 days, with shortness of breath, sputum production, fever and chills, diarrhea 1-2 episodes daily all for the past 2 days. Does not know how high his temperature was. Patient reports low appetite and low oral intake. Patient denies any chest pain, no abdominal pain, no urinary symptoms and no lower extremity edema. On arrival patient's vitals were significant for temp of 97.8?, heart rate of 78, respiratory rate of 20, blood pressure 121/76, satting 98% on room air vitals were significant for WBC count of 21.6 ( patient on dexamethasone) hemoglobin of 10.3 which is higher than his baseline, hematocrit of 34, PT of 14.3, INR of 1.2, sodium of 133, potassium 5.3, lactic acid of 2.1, calcium level of 12.2, alk-phos of 289, urine negative, COVID-[address] shows 1.8 cm slightly high attenuation lesion in the left frontal parietal region and significant surrounding vasogenic edema which likely represents metastatic disease and is unchanged from previous brain MRI of chest x-ray shows stable volume loss to the right hemithorax and mass consolidation of the right lower lobe. Hospital course Hypercalcemia of malignancy noticed to have corrected calcium level of around 13 with symptomatic lethargy and constipation. Started on IV fluid and received pamidronate doses per Oncology recommendations with good response as his potassium corrected level improved to 10.3. IV fluid were discontinued and the patient mentation improved significantly back to baseline. failure to thrive in adult the patient was noticed to have adult failure to thrive and severe protein calorie malnutrition which is believed to be secondary to recently diagnosed stage 4 lung cancer, squamous cell, with brain metastasis. he was evaluated by Oncology team in the hospital and Dr. Tierney as recommending the start with radiation therapy at this stage with possible chemotherapy if the patient weight and physical being improves. Vasogenic edema in the brain CT scan of the head was significant for Vasogenic edema surrounding the metastatic mass. Started on IV Decadron per Oncology recommendations. The dose was decreased and changed to p.o.. Plan to continue with the Decadron at time of discharge a tapering dose on weekly basis. To follow-up with Dr. Tierney as outpatient for further recommendations in dose changes if needed. Clostridium diff infection The patient was found to have C diff infection on January 03. a started on treatment of oral vancomycin with good response over the course as diarrhea resolved and he was able to tolerate more diet. leukocytosis Has significantly elevated WBCs as high as 40,000a result of steroid usage not from sepsis. no fever or infection identified. Started to trend down with lowering the dose of the dexamethasone. Time Spent with Patient Time attestation: Total time spent providing and/or coordinating discharge services: Discharge coordination time: Greater than 30 minutes Quality: Stroke Does the patient have a stroke diagnosis?: No Physical Exam Vital Signs: Vital Signs: Last Vital Signs Temp 98 F 12/07/20 10:57 Pulse 90 12/07/20 12:27 Resp 22 H 12/07/20 10:57 BP 104/73 12/07/20 12:27 Pulse Ox 97 12/07/20 12:27 Body Mass Index 15.4 Const: Other: Constitutional : Alert, Oriented x 3 Neck : Normal inspection, Supple Cardiovascular : S1 S2, no lower extremity edema Respiratory : decreased bilateral air entry, no crackles Gastrointestinal: soft, lax, Normal bowel sounds, Non tender Skin : Warm/Dry, No rash Neurological : Alert , oriented x 3 , right upper extremity weakness DS: Data Data Completed and Pending Completed studies during hospitalization [Text1]: Procedures Drainage of Right Lower Lobe Bronchus, Via Natural or Artificial Opening Endoscopic, Diagnostic (11/09/20) Excision of Thorax Lymphatic, Percutaneous Endoscopic Approach, Diagnostic (11/09/20) Extraction of Right Lower Lobe Bronchus, Via Natural or Artificial Opening Endoscopic, Diagnostic (11/09/20) Introduction of Other Therapeutic Substance into Respiratory Tract, Via Natural or Artificial Opening Endoscopic (11/09/20) Labs on day of discharge: Laboratory Results - last 24 hr 12/06/20 12/07/20 12/07/20 04:56 05:05 05:05 WBC 33.6 H* RBC 5.02 Hgb 10.9 L Hct 35.0 L MCV 69.7 L MCH 21.7 L MCHC 31.1 RDW 22.9 H Plt Count 139 L D MPV Not Reportable Absolute Nucleated RBC 0.000 Nucleated RBC % (auto) 0.0 Smear Path Review SEE NOTE Sodium 135 Potassium 4.6 Chloride 105 Carbon Dioxide 17 L Anion Gap 18 BUN 28 H Creatinine 0.60 Estim Creat Clear Calc 76.6 Estimated GFR > 60 Random Glucose 84 D Calcium 8.1 L COVID-19 ([facility]) COVID-19 Clin Com 12/07/20 10:35 WBC RBC Hgb Hct MCV MCH MCHC RDW Plt Count MPV Absolute Nucleated RBC Nucleated RBC % (auto) Smear Path Review Sodium Potassium Chloride Carbon Dioxide Anion Gap BUN Creatinine Estim Creat Clear Calc Estimated GFR Random Glucose Calcium COVID-19 ([facility]NDR[facility]) Negative COVID-19 Clin Com See Note Preliminary micro results at discharge 12/02/20 15:11 Blood Culture - Preliminary Blood - Venous No growth after 48 hours. 12/02/20 14:56 Blood Culture - Preliminary Blood - Venous No growth after 48 hours. Discharge Plan Discharge Patient Disposition: er [facility] Discharge Diagnosis: metastatic lung cancer Cancer related edema in the brain Elevated calcium levels Referrals: [facility] [Outside] - 1 Week Michael Pace MD [Primary Care Provider] - 1 Week Discharge Medications: New dexamethasone 4 mg Tablet See Taper mg PO BID Qty: 40 RF: 0 Firvanq 25 mg/mL Recon Soln 125 mg PO Q6H 11 Days Qty: 220 RF: 0 Continued dexamethasone 4 mg Tablet 4 mg PO BID Qty: 30 RF: 1 (DME) commode Kit Qty: 1 RF: 0 (DME) Shower Chair Misc Qty: 1 RF: 0 (DME) nebulizers Misc Qty: 1 RF: 0 aspirin 81 mg tablet,delayed release (DR/EC) 1 tab PO DAILY RF: 0 atorvastatin 40 mg tablet 1 tab PO DAILY RF: 0 fluoxetine 20 mg capsule 1 cap PO QAM RF: 0 risperidone 1 mg tablet 1 tab PO BEDTIME RF: 0 ferrous sulfate 325 mg (65 mg iron) tablet 325 mg PO DAILY Qty: 30 RF: 0 Discharge Orders: Discharge Order (Routine); Ordered 12/07/20 Ordered By: Clary Bryant Diet: advance to usual diet Activity on Discharge: As tolerated Stand Alone Forms: Patient Portal Discharge page Care Plan Goals: Read below Health Concerns: Read below Plan of Treatment: you have presented to the hospital for evaluation of increased weakness. Found to elevated calcium level along with edema in your brain from a metastatic lung cancer. Treated with steroids with and anti calcium medications with good response and evaluated by Dr. Tierney from Oncology who recommended to continue the steroid treatment and to follow-up with her as outpatient for possible radiation therapy. You will need to get in better physical shape and gain some weight before starting any chemotherapy. you developed diarrhea and was found to infection called C diff which was treated with oral vancomycin. Assessment: Continue vancomycin as prescribed Continue tapering dose of prednisone over the next few weeks To follow-up with Dr. Tierney office for radiation therapy plan Add Ensure with all meals for weight gain
[2020-12-07 15:30] VITALS: BP 132/70; PULSE 85; RESP 15; TEMP 36.6; O2SAT 95
== END 2020-12-07 16:39 | disposition skilled nursing facility (03) | DRG 371 ==
LOC: HO.ED 14:01 → HO.EDOVER 23:44 → HO.IMC 12-03 00:16
PROVIDERS: Internal Medicine; Admitting Provider Internal Medicine; Emergency Provider Emergency Medicine Emergency Medical Services; PCP Internal Medicine; Visit Provider Student in an Organized Health Care Education/Training Program
DX: A04.72 Enterocolitis due to Clostridium difficile, not specified as recurrent (principal); E43 Unspecified severe protein-calorie malnutrition; Z68.1 Body mass index [BMI] 19.9 or less, adult; E87.2 Acidosis; C34.31 Malignant neoplasm of lower lobe, right bronchus or lung; R64 Cachexia; C79.31 Secondary malignant neoplasm of brain; E83.52 Hypercalcemia; E78.5 Hyperlipidemia, unspecified; F32.9 Major depressive disorder, single episode, unspecified; R62.7 Adult failure to thrive; E86.0 Dehydration; K59.00 Constipation, unspecified; D72.829 Elevated white blood cell count, unspecified; I69.320 Aphasia following cerebral infarction; Z20.822 Contact with and (suspected) exposure to COVID-19; Z87.891 Personal history of nicotine dependence; Z79.82 Long term (current) use of aspirin; Z79.899 Other long term (current) drug therapy
CPT/HCPCS: 36415; 70450; 71046; 80048; 80053; 80076; 80202; 81003; 82310; 83605; 83690; 83880; 84484; 85025; 85027; 85610; 85730; 87040; 87324; 87493; 87635; 93005; 97163; 99284; J1100; J2430; J2543; J3370; J8540

== ENCOUNTER → 2024-02-10 14:32 | Outpatient (RCR) | payer MEDICARE, MEDICAID, SELFPAY ==
[2020-11-20 10:03] VITALS: BP 105/55; PULSE 102; RESP 14; TEMP 36.9; O2SAT 98; BMI 15.9
--- NOTE | 2020-11-20 10:17 | P.PNHO_ITS ---
Medical Summary - Medical Summary Date of Service: 11/20/20 Chief complaint: Diarrhea Interval History Interval history: Patient is here in follow-up since hospital discharge. He is accompanied by his sister today. Main complaint is that he has chronic diarrhea since discharge from the hospital and he has lost more weight. He continues to have a dry cough. He is not on any inhalers. He has no other complaints such as headache or dizziness. No chest pain or abdominal pain. Review of Systems - Constitutional Reports as per HPI, Reports fatigue, Reports malaise, Reports weight loss - Cardiovascular Reports no additional cardiovascular complaints - Respiratory Reports cough, Denies hemoptysis, Denies pain with cough, Reports dyspnea on exertion - Gastrointestinal Reports change in bowel habits, Reports diarrhea PMFSH Medical History: Medical History (This Medical Record has been edited. Action required.) Depression HLD (hyperlipidemia) Family History: Family History (This Medical Record has been edited. Action required.) Mother Stroke Maternal Uncle CHF (congestive heart failure) Maternal Uncle CHF (congestive heart failure) Paternal Grandmother CHF (congestive heart failure) Sister CHF (congestive heart failure) COPD (chronic obstructive pulmonary disease) Father Alzheimer disease Paternal Uncle Alzheimer disease Family/Other Diabetes Social History: Social History (This Medical Record has been edited. Action required.) Living Situation History: Household Members: Family Housing: House Do you presently have visiting nurse or other home services: No Alcohol History: Alcohol intake: former Alcohol History Details: Alcohol intake frequency: does not drink Tobacco History: Patient Tobacco Use Status: Former Tobacco user Cigarette Packs Per Day: 0.5 Smoke Quit Date: 11/14/2020 Second Hand Smoke Exposure: No Substance Use History: Use of substances other than those prescribed or required for medical reasons : No Advance Directives: Advance Directives Date on File: 11/09/20 Occupation Assessmet: service: No Current occupational status: retired Home Medications and Allergies Home Medications Medication Instructions Recorded Confirmed Type aspirin 81 mg PO DAILY 11/09/20 11/20/20 History atorvastatin 1 tab PO DAILY 11/09/20 11/20/20 History fluoxetine 1 cap PO QAM 11/09/20 11/20/20 History risperidone 1 tab PO BEDTIME 11/09/20 11/20/20 History Allergies Allergy/AdvReac Type Severity Reaction Status Date / Time No Known Allergies Allergy Verified 11/15/20 08:20 Exam Vital signs: Vital Signs Temp 98.4 F 11/20/20 10:03 Pulse 102 H 11/20/20 10:03 Resp 14 11/20/20 10:03 BP 105/55 L 11/20/20 10:03 Pulse Ox 98 11/20/20 10:03 Intake & Output 11/19/20 11/20/20 11/20/20 18:59 06:59 18:59 Other: Weight 47.5 kg [place] Weight in Grams [id number] Weight 47.5 kg Body Mass Index 15.9 - Constitutional Present: chronically ill appearing - Routine HEENT Exam Head: Present: normal inspection Eye: Present: normal appearance, conjunctivae pale - Routine Neck Exam Present: full ROM. Absent: lymphadenopathy - Routine Respiratory Exam Present: decreased breath sounds. Absent: respiratory distress - Routine Cardiovascular Exam Cardiovascular: Present: S1, S2 - Routine Abdominal Exam Present: soft - Routine Extremities Exam Absent: pedal edema Data - Labs CBC & Chem 7: 11/20/20 11:18 Progress Note: A/P (1) Lung cancer Status: Acute Assessment and plan: 1. 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 Molecular markers are pending. CT chest with contrast on 11/09/2020 revealed a dense mass right lower lobe measuring 3.0 x 3.5 cm. Several ill-defined patchy opacities seen in the right upper lobe in the range of 1 cm to 1.7 cm 1.3 cm. Pleural-based nodule left lower lobe and less than 5 mm range ill-defined nodules in the left lower lobe and atelectasis in the lingula. The largest abnormal lymph node in the pretracheal space measuring 1.2 x 2.7 cm axial image 25/3.. Pericardial effusion seen. He underwent bronchoscopy and biopsy of right lower lobe mass which confirmed lung cancer. He was treated with antibiotics for possible right lower lobe pneumonia. I have ordered brain MRI with and without contrast, PET-CT for staging. 2. diarrhea after recent course of antibiotics. Stool for C diff to be submitted. 3. Iron deficiency anemia. We discussed the possibility of GI bleeding. He was seen by mechanical engineering advisor but patient refused EGD/colonoscopy previously. He is on oral iron supplementation and his anemia is improving. He was asked to increase iron supplementation to twice a day. Depending on staging workup in molecular studies, further recommendations about treatment /management will be made. Follow-up in 2 weeks. - Time Spent With Patient 25 - 35 minutes
[2020-11-20 11:30] LABS: MANUAL DIFF FLAG NO
[2020-11-20 11:35] LABS: Basophils Absolute Auto 0.1 X10*3/uL (0.0-0.2); Basophils Percent Auto 0.5 % (0-2); Eosinophils Percent Auto 0.3 % (0-4); Hematocrit 27.8 % (42-52); Hemoglobin 8.6 g/dl (14.0-18.0); Imm Gran Abs Auto 0.07 X10*3/uL (0.00-0.03); Imm Gran Pct Auto 0.5 % (0.0-0.4); Lymphocytes Absolute Auto 1.4 X10*3/uL (1.2-4.9); Lymphocytes Percent Auto 9.6 % (20-40); Mean Corpuscular HGB Conc 30.9 g/dl (31.0-36.0); Mean Corpuscular Hemoglobin 21.6 pg (27.0-33.0); Mean Corpuscular Volume 69.8 fL (80-98); Mean Platelet Volume 8.8 fL (9.4-12.4); Monocytes Absolute Auto 1.1 X10*3/uL (0.1-1.2); Monocytes Percent Auto 7.1 % (2-11); Neutrophils Absolute Auto 12.3 X10*3/uL (2.0-8.3); Platelet Count 476 X10*3/uL (160-400); Red Blood Count 3.98 X10*6/uL (4.60-5.80); Red Cell Distribution Width 19.7 % (11.0-16.0)
--- NOTE | 2020-11-20 13:16 | HO.HEMONCPA ---
NO PA REQUIRED FOR PET SCAN. REF#[id number] . CS REP LINDA 11/20/20 AT 1:15PM
--- NOTE | 2020-11-20 14:03 | MHC.HEMONCMA ---
Patient came in for a consult of lung cancer. He was accompanied by his sister. Clinical summary was reviewed and updated. Patient had labs and will return in on 12/02/2020 for a follow up. PET scan has been sent to [facility] for scheduling. MRI of brain placed in order [facility].
--- NOTE | 2020-11-20 15:43 | MHC.HEMONC ---
Hemoglobin improved to 8.6- Labs reviewed with sister Geneva. Dr. Tierney sent prescription for Iron, patient notified. Patient will come to collect cup for stool sample.
--- NOTE | 2020-12-02 11:46 | P.PNHO_ITS ---
[facility] Telehealth - Telehealth Location of Provider rendering services: office Patient Identification confirmed using: Name, : Yes Patient verbally consented to billing insurance company: Yes Patient informed of any privacy concerns related to visit: Yes Medical Summary - Medical Summary Date of Service: 12/02/20 Chief complaint: Scheduled follow-up Medical Summary: Diagnosis: Metastatic lung cancer Interval History Interval history: This was scheduled visit for patient. Sister was supposed to bring the patient in but she got sick and requested a tele visit today. Patient was present but the sister is the main historian. Patient briefly stated that he feels very weak and is unable to talk much on the phone. His sister states that she is unable to be his caregiver anymore. He needs assistance using the bathroom or taking a shower. Patient's sister states that she can no longer take care of him and wants patient to go into a intermediate or rehabilitation center. She has spoken to his PCP about this. Home Medications and Allergies Home Medications Medication Instructions Recorded Confirmed Type aspirin 81 mg PO DAILY 11/09/20 11/20/20 History atorvastatin 1 tab PO DAILY 11/09/20 11/20/20 History fluoxetine 1 cap PO QAM 11/09/20 11/20/20 History risperidone 1 tab PO BEDTIME 11/09/20 11/20/20 History Allergies Allergy/AdvReac Type Severity Reaction Status Date / Time No Known Allergies Allergy Verified 11/15/20 08:20 Exam Vital signs: Vital Signs Temp 98.4 F 11/20/20 10:03 Pulse 102 H 11/20/20 10:03 Resp 14 11/20/20 10:03 BP 105/55 L 11/20/20 10:03 Pulse Ox 98 11/20/20 10:03 Weight 47.5 kg Body Mass Index 15.9 Narrative: Patient not examined today - Constitutional Present: chronically ill appearing - Routine HEENT Exam Head: Present: normal inspection - Routine Neck Exam Present: full ROM. Absent: lymphadenopathy - Routine Respiratory Exam Present: decreased breath sounds. Absent: respiratory distress - Routine Cardiovascular Exam Cardiovascular: Present: S1, S2 - Routine Abdominal Exam Present: soft - Routine Extremities Exam Absent: pedal edema Data - Labs CBC & Chem 7: 11/20/20 11:18 Labs: 11/20/20 11:18 Complete Blood Count Auto Diff Routine Laboratory Last Values WBC 15.0 X10*3/uL (4.8-10.8) H 11/20/20 11:18 RBC 3.98 X10*6/uL (4.60-5.80) L 11/20/20 11:18 Hgb 8.6 g/dl (14.0-18.0) L 11/20/20 11:18 Hct 27.8 % (42-52) L 11/20/20 11:18 MCV 69.8 fL (80-98) L 11/20/20 11:18 MCH 21.6 pg (27.0-33.0) L 11/20/20 11:18 MCHC 30.9 g/dl (31.0-36.0) L 11/20/20 11:18 RDW 19.7 % (11.0-16.0) H 11/20/20 11:18 Plt Count 476 X10*3/uL (160-400) H 11/20/20 11:18 MPV 8.8 fL (9.4-12.4) L 11/20/20 11:18 Immature Gran % (Auto) 0.5 % (0.0-0.4) H 11/20/20 11:18 Neut % (Auto) 82.0 % (45-73) H 11/20/20 11:18 Lymph % (Auto) 9.6 % (20-40) L 11/20/20 11:18 [place] % (Auto) 7.1 % (2-11) 11/20/20 11:18 Eos % (Auto) 0.3 % (0-4) 11/20/20 11:18 Baso % (Auto) 0.5 % (0-2) 11/20/20 11:18 Lymph # (Auto) 1.4 X10*3/uL (1.2-4.9) 11/20/20 11:18 [place] # (Auto) 1.1 X10*3/uL (0.1-1.2) 11/20/20 11:18 Eos # (Auto) 0.0 X10*3/uL (0.0-0.4) 11/20/20 11:18 Baso # (Auto) 0.1 X10*3/uL (0.0-0.2) 11/20/20 11:18 Abs Immat Gran (auto) 0.07 X10*3/uL (0.00-0.03) H 11/20/20 11:18 Absolute Neuts (auto) 12.3 X10*3/uL (2.0-8.3) H 11/20/20 11:18 Absolute Nucleated RBC 0.000 X10*3/uL (0.0-0.012) 11/20/20 11:18 Nucleated RBC % (auto) 0.0 /100WBC (0.0-0.2) 11/20/20 11:18 Progress Note: A/P (1) Lung cancer Status: Acute Assessment and plan: 1. 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 PDL 1 expressed TPS 80%, panTRK expressed. CT chest with contrast on 11/09/2020 revealed a dense mass right lower lobe measuring 3.0 x 3.5 cm. Several ill-defined patchy opacities seen in the right upper lobe in the range of 1 cm to 1.7 cm 1.3 cm. Pleural-based nodule left lower lobe and less than 5 mm range ill-defined nodules in the left lower lobe and atelectasis in the lingula. The largest abnormal lymph node in the pretracheal space measuring 1.2 x 2.7 cm axial image 25/3.. Pericardial effusion seen. He underwent bronchoscopy and biopsy of right lower lobe mass which confirmed lung cancer. He was treated with antibiotics for possible right lower lobe pneumonia. PET-CT showed FDG avid right lower lobe mass as well as separate lesion in the right lung as well as smaller FDG avid lesions in the left lung. Brain MRI performed 11/25/2020 showed-Solitary 1.8 x 2.2 cm high left frontal lobe lesion with a moderate amount of surrounding vasogenic edema and [id number] regional mass effect, most suspicious for metastatic disease. He has been started on dexamethasone 4 mg p.o. b.i.d.. We discussed referral to Radiation Oncology, sister cannot bring him to any appointments as she is sick. Patient needs a to be in a rehabilitation center to coordinate his care. She was advised to bring him to the emergency room at the earliest. He is a candidate for immunotherapy based on high PDL1 expression. He will need urgent referral to Radiation Oncology as well. I have advised patient sister to call an ambulance if she cannot bring him for his appointments. I spent 15 minutes with patient and his sister on the phone. - Time Spent With Patient 15 - 24 minutes
--- NOTE | 2020-12-02 16:03 | MHC.HEMONCMA ---
Patient had a telehealth with Dr Tierney today to go over PET scan results. Clinical summary was reviewed and updated.
== END | disposition home or self-care (01) ==
LOC: HO.ONC 11-20 09:43
PROVIDERS: PCP Internal Medicine; Visit Provider Internal Medicine
DX: C34.31 Malignant neoplasm of lower lobe, right bronchus or lung (principal); D50.9 Iron deficiency anemia, unspecified; R19.7 Diarrhea, unspecified; Z79.899 Other long term (current) drug therapy
CPT/HCPCS: 85025; 99214; Q3014